=== PATIENT | female | born 2000 | race Caucasian/White ===

== ENCOUNTER 2019-01-24 14:49 | Emergency (ER) | payer MEDICAID, SELFPAY ==
[2019-01-24 14:53] VITALS: BP 119/71; PULSE 90; RESP 16; TEMP 36.4; O2SAT 99
--- NOTE | 2019-01-24 15:10 | DI.US_ITS ---
SYMPTOM/DIAGNOSIS: VAG BLEEDING, , R/O ECTOPIC VS MISCARRIAGE OB ULTRASOUND: 01/24 OB/pelvic ultrasound was performed utilizing first trimester protocol. There is an apparent intrauterine gestational sac with mean sac size suggesting gestational age of 5 weeks 2 days. No yolk sac, pole or cardiac activity is identified. The findings as described were nonspecific and may represent early viable vs nonviable intrauterine gestation. The ovaries are unremarkable in appearance except for a presumed 15 mm left corpus luteum cyst. CONCLUSION: Likely early intrauterine gestation, 5 week sac size, viability is uncertain. Ectopic not absolutely excluded but unlikely. Follow up with serial beta Hcg levels and repeat ultrasound if indicated. Many abnormalities cannot be diagnosed. A normal exam does not exclude a congenital anomaly. HISTORY: Bleeding Date of exam: 01/24/2019 LMP:October or November EDC by LMP: ? Previous study: None ?? wks Range: to EDC by prior us: - - Findings: - - Prior surgery/: None BIOMETRY: PELVIC MEASUREMENTS: CRL: mm wks Uterus: 8.1 x 4.2 x 5.0 cm Yolk sac: mm wks Gest sac: 4.8 mm 5 +2 wks Rt Ovary: 3.0 x 1.3 x 1.2 cm BPD: mm wks HC: mm wks Lt Ovary: 2.9 x 1.7 x 2.2 cm AC: mm wks FL: mm wks Comments: 1.5 x 1.4 x 1.5 cm ? corpus luteum cyst. Composite Age (US): wks EDC by US: Heart Rate: BPM Amniotic Fluid: Oligo Normal Polyhydramnios Movement noted: Yes No Comments:
--- NOTE | 2019-01-24 15:35 | ED.GENADUL_ITS ---
Discharge Plan Disposition Patient Disposition: HOME Condition: Stable Discharge Details Chief Complaint: COO Clinical Impression: Abnormal vaginal bleeding, Threatened miscarriage Primary Care Provider: Tatiana Levin ED Provider: Andrei Barclay Home Meds and New Rx's Prescriptions: No Action No Known Home Meds RF: 0 Discharge Instructions Instructions: Threatened Miscarriage (ED) Additional Instructions: Feel free to return to the emergency department for any new or significant worsening of symptoms, fever chills, vaginal hemorrhaging, or any other worrisome symptoms that you may have. Otherwise feel free to call [facility] and talk with on-call provider for any further questions and keep your appointment as scheduled for Mondays ultrasound. Stand Alone Forms: Work Release Referrals: [facility] [Provider Group] Discharge Data Discharge Date/Time-TO BE ENTERED AT DEPARTURE: 01/24/19 17:45 Medical Decision Making <Sixto Loaiza DO - Last Filed: 01/24/19 15:46> This is a pleasant 18-year-old female who presents today for evaluation of vaginal bleeding. She is a G1, P0 who recently had a positive test within the last week or so. Last period was at the end of October. She denies any history of previous or miscarriage, however she has a strong family history of miscarriage and ectopic pregnancies. She developed mild vaginal bleeding that started this afternoon while in the shower. No associated pain cramping or tenderness. Exam demonstrates a closed cervix, small amount of tissue noted in the vaginal vault, small amount of blood. No cervical motion tenderness, pelvic tenderness, or tenderness on bimanual exam. Bedside ultrasound shows what appears to be a potential yolk sac versus blighted ovum versus retained products of conception. We will get a formal ultrasound, test the patient's Rh status, evaluate for hemoglobin status, reassess. With no clinical or historical pain, I feel that likelihood of ectopic is notably low. Case will be signed out to my colleague pending ultrasound, and lab results. Please refer to their documentation for final disposition. <Andrei Barclay NP - Last Filed: 01/24/19 19:12> Your review of labs show Rh+ patient with no signs of urinary tract infection, and completely appropriate CBC. Beta quant is 1964. Review of ultrasound imaging shows findings consistent with intrauterine approximately 5 weeks 2 days. Reassessed patient and patient has had no new or worsening symptoms since being in the emergency department. Called and spoke with Jennie Bradley public relations analyst whom recommended that patient keep her appointment for Monday for repeat ultrasound. She did not recommend repeat hCG at this time but states that OB provider will order as needed based upon Mondays ultrasound. Thorough return precautions for vaginal bleeding were discussed with patient along with importance of follow-up with women's wellness. After discussion of diagnosis and plan of care patient has no further needs, questions, or concerns and states clear understanding to return to the emergency department for any worsening symptoms. HPI <Sixto Loaiza, DO - Last Filed: 01/24/19 15:46> General Date/Time Provider Initiated Documentation: 01/24/19 14:57 . HPI Narrative: This is a pleasant G1, P0 18-year-old female who presents today for vaginal bleeding. Patient has no significant past medical history, she states that at her PCPs office just a few days ago her test was performed and it was positive. She is scheduled for ultrasound dating on 01/28. Last menstrual period was in late October. Today when she was in the shower she noted a mild to moderate amount of vaginal bleeding. She had no associated pain, cramping, or discomfort. She does not recall seeing any clots or tissue. She presents to the ER for further assessment. She does have a past medical history positive for herpes, she denies any other history of STDs. She is obviously sexually active. She does have a strong family history of STDs, and ectopic pregnancies and miscarriages. Patient denies any other complaints at this time. She denies any recent trauma or vigorous sexual activity. Related Data Home Medications Medication Instructions Recorded Confirmed Unknown [No Known Home Meds] 01/24/19 01/24/19 Allergies Allergy/AdvReac Type Severity Reaction Status Date / Time lisdexamfetamine Allergy Intermediate difficulty Verified 01/24/19 14:56 [From Vyvanse] falling asleep bee venom protein (honey bee) Allergy Unknown Verified 01/24/19 14:56 kiwi Allergy Unknown Verified 01/24/19 14:56 Latex, Natural Rubber Allergy Unknown Verified 01/24/19 14:56 francisco Allergy Unknown Verified 01/24/19 14:56 pineapple Allergy Unknown Verified 01/24/19 14:56 General Stated Complaint: COO MIKI: 3 Review of Systems <Sixto Loaiza DO - Last Filed: 01/24/19 15:46> Review of Systems All systems reviewed & are unremarkable except as noted in HPI and below PFSH <Sixto Loaiza DO - Last Filed: 01/24/19 15:46> Medical History (Updated 01/24/19 @ 10:52 by Lupe Dougherty LPN) Anemia (Chronic) Chronic serous otitis media (Acute) Concussion (Acute) Contusion of hip (Acute) Depression (Chronic) Dysmenorrhea (Acute) Excessive and frequent menstruation (Acute) Family disruption (Acute) HX: contraception (Acute) Knee pain (Acute) Menometrorrhagia (Acute) Menstruation disorder (Acute) Migraine (Chronic) Mild persistent asthma (Acute) Otitis (Chronic) Patent ductus arteriosus (Acute) Premature of unknown weight (Acute) Respiratory depression (Acute) Sleep disorder (Acute) Social History Smoking/Tobacco Use Status: Never Alcohol Intake: never Substance use type: does not use Do you feel safe at home: Yes Do you feel safe in your relationship?: Yes Exam <Sixto Loaiza DO - Last Filed: 01/24/19 15:46> Narrative Exam Narrative: 1.Const: Well-nourished, Well-developed, appearing stated age 2.Eyes: PERRL, no conjunctival injection, and symmetrical lids. 3.ENT: Atraumatic external nose and ears. Moist MM. Neck: Symmetric, trachea midline, No thyromegaly. 4.CVS: +S1/S2, No murmurs or gallops. Peripheral pulses 2+ and equal in all extremities. Brisk capillary refill in all extremities. 5.RESP: Unlabored respiratory effort. Clear to auscultation bilaterally. No wheezes rales or rhonchi 6.GI: Soft, Nontender/Nondistended, No hepatosplenomegaly. No guarding or rebound. No abdominal or pelvic tenderness on palpation. Nurse Silva was present at bedside, vaginal exam was performed, cervix appears closed, small amount of blood, it is noted. There is also evidence of a small amount of tissue removed from the darrius-cervical area. The remainder of the exam is otherwise benign, no cervical motion tenderness, no pain on bimanual exam. 7.MSK: Normocephalic/Atraumatic, Extremities w/o deformity or ttp No cyanosis or clubbing, Normal movement of all extremities 8.Skin: Warm, Dry. No rashes or lesions. 9.Neuro: bearing ring assembler II-XII grossly intact. Sensation grossly intact, no focal neurologic deficits. 10.Psych: (AAO) x3. Appropriate mood and affect Course <Sixto Loaiza DO - Last Filed: 01/24/19 15:46> Vital Signs Temperature 36.4 C L 01/24/19 14:53 Pulse 90 01/24/19 14:53 Respiratory Rate 16 01/24/19 14:53 Blood Pressure 119/71 01/24/19 14:53 Pulse Oximetry 99 01/24/19 14:53 Temperature 36.4 C L 01/24/19 14:53 Temperature Source Temporal Artery Scan 01/24/19 14:53 Pulse 90 01/24/19 14:53 Respiratory Rate 16 01/24/19 14:53 Respiratory Effort Non-Labored 01/24/19 14:55 Blood Pressure 119/71 01/24/19 14:53 Blood Pressure Position Sitting 01/24/19 14:53 Pulse Oximetry 99 01/24/19 14:53 Oxygen Delivery Method Room Air 01/24/19 14:53 Oxygen Flow Rate 0 01/24/19 14:53 Pain Level 0 01/24/19 15:19 Sign Out <Sixto Loaiza DO - Last Filed: 01/24/19 15:46> Sign Out Data: Sign Out Comment: G1, P0 4 to 6 weeks potentially, vaginal bleeding last 3 hours, small amount of tissue noted in vaginal vault, getting ultrasound, hCG and Rh status. Last updated by Sixto Loaiza DO at 01/24/19 15:55
[2019-01-24 15:49] LABS: Abs Immature Grans 0.01 k/cumm (0.0-0.09); Absolute Basophil Count 0.04 k/cumm (0.0-0.2); Absolute Eosinophil Count 0.07 k/cumm (0.0-0.7); Absolute Lymphocyte Count 1.83 k/cumm (1.2-3.4); Absolute Monocyte Count 0.47 k/cumm (0.11-0.7); Absolute Neutrophil Count 5.37 k/cumm (1.2-6.7); Basophils % 0.5; Eosinophils % 0.9; HCT 39.1 % (36.0-46.0); HGB 13.2 g/dL (12.0-15.5); Immature Grans % 0.1; Lymphocytes % 23.5; Mean Corp. HGB Concentration 33.8 g/dL (32.0-36.0); Mean Corpuscular Hemoglobin 30.5 pg (27.0-33.0); Mean Corpuscular Volume 90.3 fL (80-95); Mean Platelet Volume 9.3 fL (8.0-11.0); Platelet Count 356 x1000/uL (130-400); RBC 4.33 m/cumm (4.00-5.20); RBC Distribution Width 12.2 % (11.7-14.6); White Blood Cell Count 7.79 k/cumm (4.4-10.8)
[2019-01-24 16:38] LABS: HCG Quant, Pregnancy 1963 mIU/mL (1-3)
--- NOTE | 2019-01-24 16:42 | DI.VRAD_ITS ---
EXAM: US , Limited and US , Transvaginal EXAM DATE/TIME: 01/24/2019 4:21 PM CLINICAL HISTORY: 18 years old, female; Lmp or gestational age (in weeks): Unknown lmp october or november; Other: Vaginal bleeding, ; R/O ectopic vs miscarriage TECHNIQUE: Imaging protocol: Real-time ultrasound of the maternal uterus with image documentation. Transvaginal imaging was used for better evaluation of the fetus and adnexa. Exam focused on the clinical indication. COMPARISON: No relevant prior studies available. FINDINGS: GESTATION: Gestation: A gestational sac is present. No pole is identified. No yolk sac is identified. BIOMETRY: Estimated gestational age: The estimated gestational age is 5 weeks, 2 days by mean sac diameter of 0.48. MATERNAL: Uterus: The uterus has a normal appearance. The uterus measures 8.1 cm x 4.2 cm x 5.0 cm. Right adnexa: The right ovary has a normal appearance, measuring 3.0 cm x 1.3 cm x 1.2 cm. No free intraperitoneal fluid or adnexal mass is identified. Left adnexa: The left ovary has a normal appearance measuring 2.9 cm x 1.7 cm x 2.2 cm. There is a hypoechoic nodule measuring 1.5 cm with posterior acoustic enhancement and a rim of increased color Doppler blood flow within the left ovary, likely representing a corpus luteum cyst. IMPRESSION: Findings consistent with early intrauterine with an estimated gestational age of 5 weeks, 2 days by mean sac diameter. Dictated and Authenticated by: Boston Espinoza MD. Ordering:JIMMY Henson MD
[2019-01-24 16:43] LABS: Bilirubin Negative (Negative); Blood Negative (Negative); Clarity Clear (Clear); Glucose Negative (Negative); Ketones Negative (Negative); Leukocyte Esterase Negative (Negative); Nitrite Negative (Negative); Urobilinogen 0.2 EU/dL (Up TO 0.2)
[2019-01-24 17:39] VITALS: BP 107/53; PULSE 82; RESP 16; TEMP 37.2; O2SAT 100
== END 2019-01-24 17:45 | disposition home or self-care (01) ==
PROVIDERS: Student in an Organized Health Care Education/Training Program; Emergency Provider Nurse Practitioner Family; PCP Registered Nurse
DX: O20.0 Threatened abortion (principal); Z3A.01 Less than 8 weeks gestation of pregnancy
CPT/HCPCS: 36415; 86900; 86901; 99284; 76817; 81003; 84702; 85025

== ENCOUNTER 2019-01-26 14:17 | Emergency (ER) | payer MEDICAID, SELFPAY ==
[2019-01-26 14:20] VITALS: BP 116/65; PULSE 74; RESP 16; TEMP 37.4; O2SAT 98
--- NOTE | 2019-01-26 14:24 | ED.GENADUL_ITS ---
Discharge Plan Disposition Patient Disposition: HOME Condition: Good Discharge Details Chief Complaint: COVER MAKER Clinical Impression: First trimester Primary Care Provider: Luzmaria Barney ED Provider: Kylah Perez Home Meds and New Rx's Prescriptions: Continued ferrous fumarate 324 mg (106 mg iron) Tablet 324 mg PO DAILY AM RF: 0 28-800 mg-mcg Tablet 1 tab PO DAILY AM RF: 0 calcium carbonate [Calcium 500] 500 mg calcium (1,250 mg) Tablet 1,250 mg PO DAILY PRN PRNRF: 0 Discharge Instructions Instructions: First Trimester (ED) Additional Instructions: Encourage hydration. Please continue with your vitamins. Your hCG is going up nicely. Please keep upcoming appointment with COVER MAKER. If you develop any new or worsening symptoms please return to the emergency department once again. Referrals: Angela Payne MD [ [facility] STAFF PHYSICIAN] - Medical Decision Making Patient is a 18-year-old female, G1, P0, presenting today for redraw of her beta hCG. She was seen here 2 days ago with threatened miscarriage. At that time, she was endorsing bleeding. She was noted to have an intrauterine . She denies any bleeding, vaginal discharge, abdominal pain. No nausea vomiting. Reports that she is feeling quite well. Repeat quantitative hCG is up to 3456, so from 1963. Discussed these findings with the patient. She Adama has a scheduled appointment with COVER MAKER on Monday. Encourage hydration. She will return with any new or worsening symptoms. All of her questions and concerns were addressed and she is in agreement this plan. HPI General Mode of arrival: ambulatory . Date/Time Provider Initiated Documentation: 01/26/19 14:24 . Limitations to Documentation: no limitations . Information obtained by: patient and RN notes reviewed . HPI Narrative: Patient presents today for repeat quantitative hCG. She was seen here 48 hours ago with concern for threatened spontaneous in the first trimester. Patient reports that her bleeding has stopped. She denies any cramping. No vaginal discharge. Reports overall she is feeling quite well. Was advised to return for repeat quantitative hCG. Related Data Home Medications Medication Instructions Recorded Confirmed 1 tab PO DAILY AM 01/26/19 01/26/19 calcium carbonate [Calcium 500] 1,250 mg PO DAILY PRN PRN 01/26/19 01/26/19 ferrous fumarate 324 mg PO DAILY AM 01/26/19 01/26/19 Allergies Allergy/AdvReac Type Severity Reaction Status Date / Time lisdexamfetamine Allergy Intermediate difficulty Verified 01/26/19 14:26 [From Magdalena] falling asleep bee venom protein (honey bee) Allergy Unknown Verified 01/26/19 14:26 kiwi Allergy Unknown Verified 01/26/19 14:26 Latex, Natural Rubber Allergy Unknown Verified 01/26/19 14:26 francisco Allergy Unknown Verified 01/26/19 14:26 pineapple Allergy Unknown Verified 01/26/19 14:26 General MIKI: 3 Review of Systems Constitutional Reports as per HPI, Denies chills, Denies fatigue, Denies fever(s) and Denies headache(s) ENT Denies headache(s) Cardiovascular Reports as per HPI, Denies chest pain and Denies dyspnea Respiratory Reports as per HPI, Denies cough and Denies dyspnea Gastrointestinal Reports as per HPI Musculoskeletal Reports as per HPI and Denies back pain Integumentary/Breasts Reports as per HPI and Denies rash Neurologic Reports as per HPI and Denies headache(s) Endocrine Denies fatigue [facility] Medical History Adjustment disorder with mixed emotional features (Acute) Anemia (Chronic) Attention deficit hyperactivity disorder (ADHD), combined type (Acute) Chronic serous otitis media (Acute) Concussion (Acute) Contusion of hip (Acute) Depression (Chronic) Dysmenorrhea (Acute) Excessive and frequent menstruation (Acute) Family disruption (Acute) HX: contraception (Acute) Knee pain (Acute) Menometrorrhagia (Acute) Menstruation disorder (Acute) Migraine (Chronic) Mild persistent asthma (Acute) Otitis (Chronic) Patent ductus arteriosus (Acute) Premature infant of unknown weight (Acute) Respiratory depression (Acute) Sleep disorder (Acute) Social History Smoking/Tobacco Use Status: Never Alcohol Intake: never Drug use: Never Substance use type: does not use Do you feel safe at home: Yes Do you feel safe in your relationship?: Yes Exam Const General: cooperative, healthy appearing, comfortable, no acute distress and well developed Nutritional Appearance: average body habitus and well nourished Orientation: alert and awake HENIA Head: normal to inspection Mouth: moist mucous membranes Resp Effort & Inspection: normal respiratory effort, able to speak in complete sentences and no respiratory distress Auscultation: clear to auscultation bilaterally, no rales, no rhonchi and no wheezes Cardio Rate: regular rate Rhythm: regular rhythm Heart Sounds: S1 normal and S2 normal GI Inspection: normal to inspection Palpation: soft, no hepatosplenomegaly and nontender Percussion: normal to percussion Auscultation: normal bowel sounds Back/Spine/Pelvis Back: no CVA tenderness Skin General skin exam: no rashes or lesions noted Trauma: no lacerations or abrasions Neuro General: alert and awake Cognition: normal cognition Speech: speech normal Gait: normal gait Psych Appearance: grossly normal and well kempt Mental Status: mental status grossly normal Speech and Movement: speech and movement normal
[2019-01-26 15:25] LABS: HCG Quant, Pregnancy 3456 mIU/mL (1-3)
== END 2019-01-26 15:57 | disposition home or self-care (01) ==
PROVIDERS: Emergency Provider Physician Assistant; PCP Pediatrics
DX: Z3A.00 Weeks of gestation of pregnancy not specified (principal)
CPT/HCPCS: 36415; 99282; 84702

== ENCOUNTER 2019-02-05 12:16 | Outpatient (CLI) | payer MEDICAID, SELFPAY ==
[2019-02-05 12:42] LABS: Abs Immature Grans 0.01 k/cumm (0.0-0.09); Absolute Basophil Count 0.03 k/cumm (0.0-0.2); Absolute Eosinophil Count 0.04 k/cumm (0.0-0.7); Absolute Lymphocyte Count 1.99 k/cumm (1.2-3.4); Absolute Monocyte Count 0.41 k/cumm (0.11-0.7); Absolute Neutrophil Count 4.12 k/cumm (1.2-6.7); Basophils % 0.5; Eosinophils % 0.6; HCT 35.9 % (36.0-46.0); HGB 12.3 g/dL (12.0-15.5); Immature Grans % 0.2; Lymphocytes % 30.2; Mean Corp. HGB Concentration 34.3 g/dL (32.0-36.0); Mean Corpuscular Hemoglobin 30.6 pg (27.0-33.0); Mean Corpuscular Volume 89.3 fL (80-95); Mean Platelet Volume 8.9 fL (8.0-11.0); Monocytes % 6.2; Neutrophils % 62.3; Platelet Count 333 x1000/uL (130-400); RBC 4.02 m/cumm (4.00-5.20); RBC Distribution Width 11.3 % (11.7-14.6)
[2019-02-05 16:49] LABS: HCG Quant, Pregnancy 23803 mIU/mL (1-3)
== END 2019-02-05 12:36 ==
PROVIDERS: PCP Pediatrics; Visit Provider Obstetrics & Gynecology
DX: O02.0 Blighted ovum and nonhydatidiform mole (principal)
CPT/HCPCS: 36415; 86850; 86900; 86901; 84702; 85025

== ENCOUNTER 2019-02-06 07:36 | Day surgery (SDC) | payer MEDICAID, SELFPAY ==
[2019-02-06 07:45] VITALS: BP 113/63; PULSE 82; RESP 16; TEMP 36.8; O2SAT 99
[2019-02-06] MEDS: Lactated Ringers 1,000 ML 125 ML IV (08:26)
--- NOTE | 2019-02-06 09:04 | POCSPONT_PTH ---
PATIENT: Carla Alas LOC: [facility] U#:[id number] AGE/SX: 18/F ROOM: RE02/06/[address]: Robel Thompson MD : 2000 BED: DIS: 02/06/2019 SPEC #: [id number] RECD: 02/06/19 12:30 STATUS: YAS REQ #: [id number] SEPIDEH: 02/06/19 09:[address]: Robel Thompson DEPT: Surgical Specimen RECD BY: Barbara Mccabe ENTERED: 02/06/19 12:30 SP TYPE: POCSPONT OT DR: Luzmaria Barney Tissues: 1 - ,SPONTANEOUS Procedures: GROSS AND MICRO LEVEL 4 Comments: [id number]
[2019-02-06] MEDS: Silver Nitrate Stick 1 EACH (09:07)
[2019-02-06 09:35] VITALS: BP 116/75; PULSE 88; RESP 20; TEMP 36.5; O2SAT 100
[2019-02-06 09:56] VITALS: BP 117/74; PULSE 69; RESP 18; TEMP 36.6; O2SAT 100
[2019-02-06 10:55] VITALS: BP 114/76; PULSE 78; RESP 17; TEMP 36.9; O2SAT 100
--- NOTE | 2019-02-06 19:35 | ROE_ITS ---
Date of service: 02/06/19 Time of Service: 19:35 Operative Note Operative Note DATE OF PROCEDURE: 02/06/19 PRE-OP DIAGNOSIS: Missed /anembryonic POST-OP DIAGNOSIS: same PROCEDURE: Suction D&C SURGEON: Robel Thompson ANESTHESIA: MAC ESTIMATED BLOOD LOSS: 100 PATHOLOGY: other (Products of conception) COMPLICATIONS: None Patient was transported to: PACU Patient's condition: stable Procedure Description: The patient was taken to the operating room and after an adequate level of sedation was achieved. The patient was prepped and draped in usual sterile manner. The patient had been placed in lithotomy position. A weighted speculum was placed in the vagina with good visualization of the cervix. The cervix was grasped with an Allis forcep. The cervix was gently dilated with Mccormack dilators. An 8 Martiniquais curved suction curette was advanced without difficulty. Suction apparatus was activated and the curette was rotated. Copious products of conception were retrieved. A sharp curettage was performed yielding no additional products. A second pass with the suction curette was made and again no additional products of conception were retrieved. The procedure was concluded at this point. All instrumentation was removed. The patient was transferred to PACU in stable condition.
== END 2019-02-06 11:05 | disposition home or self-care (01) ==
PROVIDERS: PCP Pediatrics; Visit Provider Obstetrics & Gynecology
PROC: (CPT 59841; principal; 2019-02-06 09:00)
DX: O02.1 Missed abortion (principal)
CPT/HCPCS: 59820; 88305; J1885; J2250; J2405

== ENCOUNTER 2019-02-16 17:31 | Emergency (ER) | payer MEDICAID, SELFPAY ==
[2019-02-16 17:33] VITALS: BP 147/76; PULSE 94; RESP 16; TEMP 37.2; O2SAT 97
[2019-02-16] MEDS: Acetaminophen 500 MG TAB 1000 MG PO (17:56)
[2019-02-16 17:58] LABS: Bilirubin Negative (Negative); Blood Small (Negative); Clarity Cloudy (Clear); Glucose Negative (Negative); Ketones Negative (Negative); Leukocyte Esterase Large (Negative); Nitrite Positive (Negative); Specific Gravity 1.015 (1.005-1.025); Urobilinogen 0.2 EU/dL (Up TO 0.2)
[2019-02-16 18:07] LABS: Epithelial Cells Moderate HPF (Negative); Other Cells Mod Transitional (Negative); WBC >50 HPF (0-5)
[2019-02-16 18:08] LABS: Bacteria Packed HPF (Negative)
[2019-02-16 18:09] LABS: C & S Indicated? C&S Done As Ordered
--- NOTE | 2019-02-16 18:10 | W.GYNCONSULT ---
Date of service: 02/16/19 Time of Service: 18:10 Assessment and Plan Assessment and plan (1) H/O dilation and curettage: Status: Acute Assessment and plan: Currently there is no evidence of postop endometritis on pelvic exam. Her symptoms relate more to flank and CVA tenderness. I have spoken to the patient and will have the ER providers follow-up regarding possible urinary tract infection. I will also refer report to Dr. Thompson patient's symptoms. (2) Acute left flank pain: Status: Acute Assessment and plan: I will await the UA and pending urine culture. The plan would be to administer antibiotics for a presumed UTI and have the patient [facility] to [facility]. History of Present Illness History of Present Illness Chief Complaint: Postop pelvic and flank pain Narrative: Patient is a 18-year-old female who awoke this morning with report of right sided abdominal and flank pain. She described the pain is worsening throughout the day and significant enough that she presented to the emergency room this evening. Patient underwent a uncomplicated cervical dilatation and uterine evacuation on 02/06/2019 for a missed at 11 weeks estimated gestational age. She was evaluated by Dr. Thompson her consumer affairs manager yesterday in the office. She had no issues at that time. Review of Systems Constitutional Constitutional: Reports as per HPI, Reports fever(s) (Denies) and Reports other (Nausea this morning no emesis no complaints of fever or chills) Gastrointestinal Gastrointestinal: Reports abdominal pain (Right greater than left side extending into her right flank) and Reports change in stool character (No change in bowel or bladder habits) Genitourinary Genitourinary: Reports abnormal menses (Dark brown-colored blood yesterday small amount none since) and Reports pelvic pain (Nonspecific pelvic pain) Comments: Patient reports no bleeding after her D&C. The amount of bleeding that she experienced yesterday was somewhat surprising in that she rarely has any heavy flow. Musculoskeletal Musculoskeletal: Reports back pain (Bilateral but right greater than left flank) Integumentary/Breasts Skin/Breast: Reports system reviewed and no additional complaints, except as docu ON LICENSE OF [facility] Medical History (Updated 02/16/19 @ 18:20 by Angela Payne MD) Acute left flank pain (Acute) Adjustment disorder with mixed emotional features (Acute) Anemia (Chronic) Attention deficit hyperactivity disorder (ADHD), combined type (Acute) Chronic serous otitis media (Acute) Concussion (Acute) Contusion of hip (Acute) Depression (Chronic) Dysmenorrhea (Acute) Excessive and frequent menstruation (Acute) Family disruption (Acute) HX: contraception (Acute) Knee pain (Acute) Menometrorrhagia (Acute) Menstruation disorder (Acute) Migraine (Chronic) Mild persistent asthma (Acute) Otitis (Chronic) Patent ductus arteriosus (Acute) Premature infant of unknown weight (Acute) Respiratory depression (Acute) Sleep disorder (Acute) Surgical History (Updated 02/16/19 @ 18:16 by Angela Payne MD) H/O dilation and curettage (Acute) 02/06/2019. Missed AB at 11 weeks. Social History Smoking/Tobacco Use Status: Former Tobacco Use Quit Date: 07/20/18 Tobacco: How many years used: 1 Quit status: quit date established Alcohol Intake: never Drug use: Never Substance use type: does not use Details: around second hand marijuana smoke Do you feel safe at home: Yes Do you feel safe in your relationship?: Yes Exam Const General: no acute distress Nutritional Appearance: average body habitus Orientation: alert, awake and oriented x3 Resp Effort & Inspection: normal respiratory effort GI Inspection: normal to inspection Palpation: soft and no hepatosplenomegaly General: bimanual renal exam abnormal (Tenderness left flank pain with percussion. Minimal pain percussion right ) and CVA tenderness (Left greater than right) External Female Exam: external appearance normal Bimanual Exam- Vagina & Uterus: normal bimanual exam, normal vaginal palpation, uterine consistency normal, uterus non-tender (Retroverted, not enlarged,) and other (Dark brown, non-malodorous vaginal discharge) Bimanual Exam- Adnexa, other: normal adnexae, adnexae mobile and no adnexal masses Skin General skin exam: no rashes or lesions noted Extrem General: normal to inspection, full ROM and normal capillary refill Results Last Vital Signs Temp 99 F 02/16/19 17:33 Pulse 94 H 02/16/19 17:33 Resp 16 02/16/19 17:33 BP 147/76 H 02/16/19 17:33 Pulse Ox 97 02/16/19 17:33 Labs Result diagrams: 02/16/19 17:41 02/16/19 17:41 Labs: Laboratory Results - last 24 hr 02/16/19 17:48 Urine Color Yellow Urine Clarity Cloudy Urine pH 7.0 Ur Specific [place] 1.015 Urine Protein 30 H Urine Ketones Negative Urine Blood Small H Urine Nitrite Positive H Urine Bilirubin Negative Urine Urobilinogen 0.2 Ur Leukocyte Esterase Large H Urine RBC 10-20 H Urine WBC >50 Ur Epithelial Cells Moderate Urine Crystals Not Applicable Urine Bacteria Packed Urine Mucus Not Applicable Urine Other Mod transitional Ur Culture Indicated? C&s done as ordered Urine Glucose Negative
[2019-02-16 18:16] LABS: Abs Immature Grans 0.02 k/cumm (0.0-0.09); Absolute Basophil Count 0.04 k/cumm (0.0-0.2); Absolute Eosinophil Count 0.16 k/cumm (0.0-0.7); Absolute Lymphocyte Count 2.47 k/cumm (1.2-3.4); Absolute Monocyte Count 0.66 k/cumm (0.11-0.7); Absolute Neutrophil Count 5.04 k/cumm (1.2-6.7); Basophils % 0.5; Eosinophils % 1.9; HCT 36.3 % (36.0-46.0); HGB 12.5 g/dL (12.0-15.5); Immature Grans % 0.2; Lymphocytes % 29.4; Mean Corp. HGB Concentration 34.4 g/dL (32.0-36.0); Mean Corpuscular Hemoglobin 30.6 pg (27.0-33.0); Mean Corpuscular Volume 88.8 fL (80-95); Mean Platelet Volume 8.8 fL (8.0-11.0); Monocytes % 7.9; Neutrophils % 60.1; Platelet Count 414 x1000/uL (130-400); RBC 4.09 m/cumm (4.00-5.20); RBC Distribution Width 11.2 % (11.7-14.6); White Blood Cell Count 8.39 k/cumm (4.4-10.8)
[2019-02-16 18:27] LABS: ALT 85 U/L (14-59); AST 47 U/L (15-37); Albumin 3.9 g/dL (3.4-5.0); Alkaline Phosphatase 89 U/L (46-116); Anion Gap 8.9 mmol/L (3-11); BUN 8 mg/dL (7-18); Bilirubin, Total 0.4 mg/dL (0.2-1.0); CO2 29.1 mmol/L (21.0-32.0); CREATININE 0.78 mg/dL (0.55-1.02); Calcium 8.8 mg/dL (8.5-10.1); Chloride 101 mmol/L (98-107); Glucose 96 mg/dL (70-100); Potassium 3.7 mmol/L (3.5-5.1); Sodium 139 mmol/L (136-145); Total Protein 7.9 g/dL (6.4-8.2)
[2019-02-16 18:29] LABS: HCG Qual (Serum) Positive
[2019-02-16 19:19] LABS: HCG Quant, Pregnancy 36 mIU/mL (1-3)
--- NOTE | 2019-02-16 19:49 | W.ED.GENAD ---
Discharge Plan Disposition Patient Disposition: HOME Condition: Good Discharge Details Chief Complaint: Urinary Clinical Impression: Acute pyelonephritis Primary Care Provider: Luzmaria Barney ED Provider: Maribel Guzman Home Meds and New Rx's Prescriptions: New cephalexin [Keflex] 500 mg capsule 500 mg PO QID Qty: 28 RF: 0 No Action ferrous fumarate 324 mg (106 mg iron) Tablet 324 mg PO DAILY AM RF: 0 Discharge Instructions Instructions: Urinary Tract Infection in Women (ED) Additional Instructions: Drink plenty of fluids by mouth Use antibiotic as prescribed. Use Pyridium as prescribed. This will stay in your urine a reddish-orange color. Follow-up with Dr. Thompson in the office this week. May use Tylenol for soreness if needed For any increase, worsening or alarming symptoms such as abdominal pain increasing, vaginal bleeding, fever worsening symptoms or lack of improvement as expected in the next 1 to 2 days have reevaluation in the emergency room. Return sooner if needed Discharge Data Discharge Date/Time-TO BE ENTERED AT DEPARTURE: 02/16/19 20:01 Medical Decision Making 18-year-old patient presents for complaints of back pain bilaterally, mild suprapubic pain, headache, subjective fever and malaise which worsened in the last 24 hours. Patient does report an episode of vaginal bleeding yesterday. Patient is 1 week status post D&C for spontaneous with retained products of conception with Dr. Thompson. Patient did have a follow-up with Dr. Thompson 2 days ago which was normal and did report lower abdominal cramping throughout the course of the week. On exam patient is noted to have CVA tenderness worse on the left. Mild suprapubic discomfort. Case was discussed with Dr. Payne covering [employer] doctor who evaluated patient in the emergency room and performed pelvic exam. Did not appreciate cervical motion tenderness or concerns for endometritis. Also notes CVA tenderness on the left. Urinalysis is remarkable for urinary tract infection and feels likely this is related to the urinary tract infection and developing pyelonephritis versus endometritis. Recommend antibiotic treatment and follow-up as an outpatient. Patient does have labs pending. She did recommend follow-up with Dr. Thompson in the office this week and she will make Dr. Thompson aware of the case. No significant abnormalities noted on patient's lab results. No elevation of white blood cell count. Serum hCG does remain positive however is trending down which is not unexpected. Patient taking fluids by mouth. Recommended Augmentin per Dr. Payne however patient has difficulty tolerating Augmentin has taken the medication before and reports significant GI upset would prefer not to use this medication. I offered IV Rocephin prior to discharge her more aggressive antibiotic coverage for possible Pyelo nephritis. Patient declines IV dose at this time would prefer an initial oral dose and follow-up if not improving. Offered Pyridium and patient agrees. Counseled regarding appropriate care and management as well as expectations for improvement in the next 2 days. Alarming symptoms discussed. The patient was stable and requested discharge. Prior to discharge, my usual and customary return precautions were reviewed with the patient - this included follow-up instructions and reasons to return to the Emergency Department if conditions worsens, does not improve as expected, or other new concerns arise. HPI General Date/Time Provider Initiated Documentation: 02/16/19 17:31. HPI Narrative: 18-year-old patient presents for complaints of back pain. Patient reports she is 1 week status post a D&C with Dr. Thompson 02/06. Patient reports onset of back pain increasing in the last 24 hours. Patient reports she did see Dr. Thompson for follow-up appointment and did not have significant back pain at that time. Patient reports accompanying suprapubic discomfort. Patient reports a single episode of vaginal bleeding which has since improved. Patient denies vaginal discharge. Patient denies obvious urinary urgency, frequency or dysuria. Patient does report headache, malaise and subjective fever developing today. Patient did report crampy abdominal pain since the D&C throughout the course of the week which is mildly increased today. Patient does report she had a D&C status post retained products after spontaneous . Related Data Home Medications Medication Instructions Recorded Confirmed ferrous fumarate 324 mg PO DAILY AM 01/26/19 02/06/19 cephalexin [Keflex] 500 mg PO QID #28 cap 02/16/19 Previous Rx's Medication Instructions Recorded cephalexin [Keflex] 500 mg PO QID #28 cap 02/16/19 Allergies Allergy/AdvReac Type Severity Reaction Status Date / Time lisdexamfetamine Allergy Intermediate difficulty Verified 02/15/19 11:26 [From Vyvanse] falling asleep bee venom protein (honey bee) Allergy Unknown Verified 02/15/19 11:26 kiwi Allergy Unknown Verified 02/15/19 11:26 Latex, Natural Rubber Allergy Unknown Verified 02/15/19 11:26 francisco Allergy Unknown Verified 02/15/19 11:26 pineapple Allergy Unknown Verified 02/15/19 11:26 General Stated Complaint: Urinary MIKI: 4 Review of Systems Review of Systems ROS Unobtainable: All systems reviewed & are unremarkable except as noted in HPI and below Constitutional Constitutional: Reports chills, Reports headache(s), Reports malaise and Denies night sweats ENT Ears, Nose, Mouth, and Throat: Reports headache(s) Cardiovascular Cardiovascular: Denies dyspnea on exertion Respiratory Respiratory: Denies cough and Denies dyspnea on exertion Gastrointestinal Gastrointestinal: Reports abdominal pain, Denies change in bowel habits, Denies constipation, Reports cramping, Denies diarrhea, Reports nausea and Denies vomiting Genitourinary Genitourinary: Reports abnormal vaginal bleeding, Denies hematuria and Denies urinary frequency Neurologic Neurologic: Reports headache(s) [facility] Medical History Acute left flank pain (Acute) Adjustment disorder with mixed emotional features (Acute) Anemia (Chronic) Attention deficit hyperactivity disorder (ADHD), combined type (Acute) Chronic serous otitis media (Acute) Concussion (Acute) Contusion of hip (Acute) Depression (Chronic) Dysmenorrhea (Acute) Excessive and frequent menstruation (Acute) Family disruption (Acute) HX: contraception (Acute) Knee pain (Acute) Menometrorrhagia (Acute) Menstruation disorder (Acute) Migraine (Chronic) Mild persistent asthma (Acute) Otitis (Chronic) Patent ductus arteriosus (Acute) Premature of unknown weight (Acute) Respiratory depression (Acute) Sleep disorder (Acute) Surgical History (Updated 02/16/19 @ 18:16 by Angela Payne MD) H/O dilation and curettage (Acute) 02/06/2019. Missed AB at 11 weeks. Social History Smoking/Tobacco Use Status: Former Tobacco Use Quit Date: 07/20/18 Tobacco: How many years used: 1 Quit status: quit date established Alcohol Intake: never Drug use: Never Substance use type: does not use Details: around second hand marijuana smoke Do you feel safe at home: Yes Do you feel safe in your relationship?: Yes Exam Narrative Exam Narrative: CONST: Healthy appearing patient, in no acute distress. Well hydrated. Alert and alert. HENMT: Head nomocephalic, normal to inspection. Atraumatic. Hearing grossly normal. EYES: General normal appearance. Alignment normal. Eyelids normal. Conjunctiva normal. NECK: Normal visual inspection. FROM. Trachea midline. No Midline tenderness. CHEST: Normal insepection of the chest. RESP: Normal respiratory effort. Speaking full sentences. No cough. No audible wheezing. No retractions. CARDIO: No JVD. Abdomen; no peritoneal signs, rebound or guarding. No abdominal distention. Bowel sounds present in all 4 quadrants. Minimal lower abdominal discomfort with palpation. Back; CVA tenderness noted on the right with palpation. Minimal on the left MUSCULOSKELETAL: Normal Gait. FROM of all extremities. SKIN: Normal. Dry. No rashes. NEURO: Alert and awake. Speech clear. PSYCH: Normal affect. Cooperative. Course Vital Signs Vital signs: Vital Signs Temperature 37.2 C 02/16/19 17:33 Pulse 94 H 02/16/19 17:33 Respiratory Rate 16 02/16/19 17:33 Blood Pressure 147/76 H 02/16/19 17:33 Pulse Oximetry 97 02/16/19 17:33 Temperature 37.2 C 02/16/19 17:33 Temperature Source Temporal Artery Scan 02/16/19 17:33 Pulse 94 H 02/16/19 17:33 Respiratory Rate 16 02/16/19 17:33 Respiratory Effort Non-Labored 02/16/19 17:36 Blood Pressure 147/76 H 02/16/19 17:33 Blood Pressure Position Sitting 02/16/19 17:33 Pulse Oximetry 97 02/16/19 17:33 Oxygen Delivery Method Room Air 02/16/19 17:33 Oxygen Flow Rate 0 02/16/19 17:33 Pain Level 7 02/16/19 17:56 Lab/Test Results Lab/Test Results: 02/16/19 17:40 Urine - Clean Catch Urine Culture - Pending Laboratory Tests Range/Units 02/16/19 02/16/19 02/16/19 17:48 18:05 18:05 WBC (4.4-10.8) k/cumm 8.39 RBC (4.00-5.20) m/cumm 4.09 Hgb (12.0-15.5) g/dL 12.5 Hct (36.0-46.0) % 36.3 MCV (80-95) fL 88.8 MCH (27.0-33.0) pg 30.6 MCHC (32.0-36.0) g/dL 34.4 RDW (11.7-14.6) % 11.2 L Plt Count (130-400) x1000/uL 414 H MPV (8.0-11.0) fL 8.8 Immature Gran % 0.2 Neutrophils % 60.1 Lymphocytes % 29.4 Monocytes % 7.9 Eosinophils % 1.9 Basophils % 0.5 Absolute Neutrophils (1.2-6.7) k/cumm 5.04 Absolute Lymphocytes (1.2-3.4) k/cumm 2.47 Absolute Monocytes (0.11-0.7) k/cumm 0.66 Absolute Eosinophils (0.0-0.7) k/cumm 0.16 Absolute Basophils (0.0-0.2) k/cumm 0.04 Sodium (136-145) mmol/L 139 Potassium (3.5-5.1) mmol/L 3.7 Chloride (98-107) mmol/L 101 Carbon Dioxide (21.0-32.0) mmol/L 29.1 Anion Gap (3-11) mmol/L 8.9 BUN (7-18) mg/dL 8 Creatinine (0.55-1.02) mg/dL 0.78 Estimated GFR/1.73 m2 (mL/min/1.73m2) >= 60.00 Glucose (70-100) mg/dL 96 Calcium (8.5-10.1) mg/dL 8.8 Total Bilirubin (0.2-1.0) mg/dL 0.4 AST (15-37) U/L 47 H ALT (14-59) U/L 85 H Alkaline Phosphatase (46-116) U/L 89 Total Protein (6.4-8.2) g/dL 7.9 Albumin (3.4-5.0) g/dL 3.9 Serum HCG, Qual Beta HCG, Quant (1-3) mIU/mL Urine Color (Yellow) Yellow Urine Clarity (Clear) Cloudy Urine pH (5-8) 7.0 Ur Specific [place] (1.005-1.025) 1.015 Urine Protein (Negative) mg/dL 30 H Urine Ketones (Negative) mg/dL Negative Urine Blood (Negative) Small H Urine Nitrite (Negative) Positive H Urine Bilirubin (Negative) Negative Urine Urobilinogen (Up TO 0.2) EU/dL 0.2 Ur Leukocyte Esterase (Negative) Large H Urine RBC (0-2) 10-20 H Urine WBC (0-5) HPF >50 Ur Epithelial Cells (Negative) HPF Moderate Urine Crystals Not Applicable Urine Bacteria (Negative) HPF Packed Urine Mucus Not Applicable Urine Other (Negative) Mod transitional Ur Culture Indicated? C&s done as ordered Urine Glucose (Negative) mg/dL Negative Range/Units 02/16/19 02/16/19 18:05 18:05 WBC (4.4-10.8) k/cumm RBC (4.00-5.20) m/cumm Hgb (12.0-15.5) g/dL Hct (36.0-46.0) % MCV (80-95) fL MCH (27.0-33.0) pg MCHC (32.0-36.0) g/dL RDW (11.7-14.6) % Plt Count (130-400) x1000/uL MPV (8.0-11.0) fL Immature Gran % Neutrophils % Lymphocytes % Monocytes % Eosinophils % Basophils % Absolute Neutrophils (1.2-6.7) k/cumm Absolute Lymphocytes (1.2-3.4) k/cumm Absolute Monocytes (0.11-0.7) k/cumm Absolute Eosinophils (0.0-0.7) k/cumm Absolute Basophils (0.0-0.2) k/cumm Sodium (136-145) mmol/L Potassium (3.5-5.1) mmol/L Chloride (98-107) mmol/L Carbon Dioxide (21.0-32.0) mmol/L Anion Gap (3-11) mmol/L BUN (7-18) mg/dL Creatinine (0.55-1.02) mg/dL Estimated GFR/1.73 m2 (mL/min/1.73m2) Glucose (70-100) mg/dL Calcium (8.5-10.1) mg/dL Total Bilirubin (0.2-1.0) mg/dL AST (15-37) U/L ALT (14-59) U/L Alkaline Phosphatase (46-116) U/L Total Protein (6.4-8.2) g/dL Albumin (3.4-5.0) g/dL Serum HCG, Qual Positive A Beta HCG, Quant (1-3) mIU/mL 36 H Urine Color (Yellow) Urine Clarity (Clear) Urine pH (5-8) Ur Specific [place] (1.005-1.025) Urine Protein (Negative) mg/dL Urine Ketones (Negative) mg/dL Urine Blood (Negative) Urine Nitrite (Negative) Urine Bilirubin (Negative) Urine Urobilinogen (Up TO 0.2) EU/dL Ur Leukocyte Esterase (Negative) Urine RBC (0-2) Urine WBC (0-5) HPF Ur Epithelial Cells (Negative) HPF Urine Crystals Urine Bacteria (Negative) HPF Urine Mucus Urine Other (Negative) Ur Culture Indicated? Urine Glucose (Negative) mg/dL
[2019-02-16] MEDS: Phenazopyridine 200 MG TAB PO (19:57)
[2019-02-16] MEDS: Cephalexin 500 MG CAP PO (19:57)
[2019-02-16 20:06] VITALS: BP 128/70; PULSE 82; RESP 18; O2SAT 97
== END 2019-02-16 20:01 | disposition home or self-care (01) ==
PROVIDERS: Emergency Provider Physician Assistant; PCP Pediatrics
DX: N10 Acute pyelonephritis (principal); B96.20 Unspecified Escherichia coli [E. coli] as the cause of diseases classified elsewhere
CPT/HCPCS: 36415; 80053; 87077; 99283; 81003; 81015; 84702; 84703; 85025; 87086; 87186

== ENCOUNTER 2019-05-26 13:23 | Emergency (ER) | payer SELFPAY ==
[2019-05-26 13:34] VITALS: BP 116/63; PULSE 90; RESP 18; TEMP 36.8; O2SAT 99
[2019-05-26 14:12] LABS: Bilirubin Negative (Negative); Blood Negative (Negative); Clarity Sl Cloudy (Clear); Glucose Negative (Negative); Ketones Negative (Negative); Leukocyte Esterase Negative (Negative); Nitrite Positive (Negative); Specific Gravity 1.025 (1.005-1.025); Urobilinogen 0.2 EU/dL (Up TO 0.2)
[2019-05-26 14:20] LABS: Epithelial Cells Many HPF (Negative)
[2019-05-26 14:21] LABS: Bacteria Many HPF (Negative); C & S Indicated? No/Sq. Contamination
--- NOTE | 2019-05-26 14:48 | W.ED.GENAD ---
Discharge Plan Disposition Patient Disposition: HOME Condition: Stable Discharge Details Chief Complaint: GenMedical Clinical Impression: Nausea and vomiting in prior to 22 weeks gestation, Asymptomatic bacteriuria during Primary Care Provider: Luzmaria Barney ED Provider: Letty Tineo Home Meds and New Rx's Prescriptions: New nitrofurantoin monohyd/m-cryst [Macrobid] 100 mg capsule 100 mg PO BID 5 Days Qty: 10 RF: 0 ondansetron HCl [Zofran] 4 mg tablet 4 mg PO Q6H PRN (Reason: nausea and vomiting) Qty: 10 RF: 0 Continued ferrous fumarate 324 mg (106 mg iron) Tablet 324 mg PO DAILY AM RF: 0 Discharge Instructions Instructions: Nausea and Vomiting in (ED), Urinary Tract Infection in (ED) Additional Instructions: You were noted to have bacteria in your urine. It is important to treat a urinary tract infection in even without symptoms as it can lead to a kidney infection. Take the Zofran as needed and directed for nausea and vomiting. Follow-up with your scheduled appointment with women's wellness this week. Return to the emergency department if you develop any worsening or new concerning symptoms. Discharge Data Discharge Date/Time-TO BE ENTERED AT DEPARTURE: 05/26/19 15:12 Discharge Physician: Letty Tineo Medical Decision Making 18-year-old female who is 11 weeks presents for an episode of feeling sweaty, dizzy, blurry vision, nausea and vomiting x1 this morning. Patient states she has had morning sickness all throughout this but states this episode felt more pronounced this morning. She states symptoms are now completely resolved. She denied any headache, unilateral numbness or weakness, chest pain, shortness of breath, abdominal pain, vaginal bleeding. Vitals within normal limits. She appears nontoxic. No acute findings on exam. Urinalysis noted positive nitrites. Case discussed with Dr. Payne who recommended treatment for UTI. Patient was given a dose of Zofran and her nausea improved. As symptoms completely resolved and patient appears nontoxic, suspect symptoms likely due to systemic effects/process of nausea and vomiting that is now resolved. Do not see indication for lab work or imaging. We will send home with a prescription for Zofran and Macrobid. She has a follow-up appointment with women's wellness on Monday. Usual and customary return precautions given prior to discharge. Medical Records Medical records reviewed: Yes I reviewed the patient's medical records. Lab Data Lab results reviewed: Yes I reviewed the patient's lab results. Labs: Laboratory Tests Range/Units 05/26/19 14:07 Urine Color (Yellow) Yellow Urine Clarity (Clear) Sl cloudy Urine pH (5-8) 7.0 Ur Specific [place] (1.005-1.025) 1.025 Urine Protein (Negative) mg/dL Negative Urine Ketones (Negative) mg/dL Negative Urine Blood (Negative) Negative Urine Nitrite (Negative) Positive H Urine Bilirubin (Negative) Negative Urine Urobilinogen (Up TO 0.2) EU/dL 0.2 Ur Leukocyte Esterase (Negative) Negative Urine RBC Not Applicable Urine WBC Not Applicable Ur Epithelial Cells (Negative) HPF Many Urine Crystals Not Applicable Urine Bacteria (Negative) HPF Many Urine Mucus Not Applicable Ur Culture Indicated? No/sq. contamination Urine Glucose (Negative) mg/dL Negative HPI General Mode of arrival: ambulatory. Date/Time Provider Initiated Documentation: 05/26/19 14:01. Limitations to Documentation: no limitations. Information obtained by: patient. History of Present Illness 18 year old F presents to the emergency department with the chief complaint of Episode of dizziness, blurry vision and vomiting x1, Patient started experiencing this hour(s) (This morning) and it has been now resolved. Rest improves symptom(s), No exacerbating factors reported . Patient notes nausea/vomiting (vomiting x 1 ); denies confusion, chest pain, cough, diaphoresis, fever/chills, headaches, loss of appetite, malaise, seizure, shortness of breath, syncope and weakness. Patient did receive the following treatments prior to arrival, none Related Data Home Medications Medication Instructions Recorded Confirmed ferrous fumarate 324 mg PO DAILY AM 01/26/19 05/02/19 nitrofurantoin monohyd/m-cryst 100 mg PO BID 5 Days #10 cap 05/26/19 [Macrobid] ondansetron HCl [Zofran] 4 mg PO Q6H PRN #10 tab 05/26/19 Previous Rx's Medication Instructions Recorded nitrofurantoin monohyd/m-cryst 100 mg PO BID 5 Days #10 cap 05/26/19 [Macrobid] ondansetron HCl [Zofran] 4 mg PO Q6H PRN #10 tab 05/26/19 Allergies Allergy/AdvReac Type Severity Reaction Status Date / Time lisdexamfetamine Allergy Intermediate difficulty Verified 05/02/19 14:01 [From Vyvanse] falling asleep bee venom protein (honey bee) Allergy Unknown Verified 05/02/19 14:01 kiwi Allergy Unknown Verified 05/02/19 14:01 Latex, Natural Rubber Allergy Unknown Verified 05/02/19 14:01 francisco Allergy Unknown Verified 05/02/19 14:01 pineapple Allergy Unknown Verified 05/02/19 14:01 General Stated Complaint: GenMedical MIKI: 3 Review of Systems All systems reviewed & are unremarkable except as noted in HPI and below Constitutional Constitutional: Reports as per HPI, Denies chills and Denies fever(s) Eyes Eyes: Denies blurry vision ENT Ears, Nose, Mouth, and Throat: Reports dizziness, Denies sore throat and Denies throat swelling Cardiovascular Cardiovascular: Denies chest pain and Denies dyspnea Respiratory Respiratory: Denies cough and Denies dyspnea Gastrointestinal Gastrointestinal: Denies abdominal pain, Denies diarrhea and Denies vomiting Genitourinary Genitourinary: Denies hematuria and Denies dysuria Musculoskeletal Musculoskeletal: Denies back pain and Denies numbness Integumentary/Breasts Skin/Breast: Denies lesions and Denies rash Neurologic Neurologic: Reports dizziness, Denies focal weakness and Denies numbness Allergic/Immunologic Allergic/Immunologic: Denies throat swelling [facility] Medical History Acute left flank pain (Acute) Adjustment disorder with mixed emotional features (Acute) Anemia (Chronic) Attention deficit hyperactivity disorder (ADHD), combined type (Acute) Chronic serous otitis media (Acute) Concussion (Acute) Contusion of hip (Acute) Depression (Chronic) Dysmenorrhea (Acute) Excessive and frequent menstruation (Acute) Family disruption (Acute) HX: contraception (Acute) Knee pain (Acute) Menometrorrhagia (Acute) Menstruation disorder (Acute) Migraine (Chronic) Mild persistent asthma (Acute) Otitis (Chronic) Patent ductus arteriosus (Acute) Premature infant of unknown weight (Acute) Respiratory depression (Acute) Sleep disorder (Acute) Surgical History H/O dilation and curettage (Acute) 02/06/2019. Missed AB at 11 weeks. Social History Smoking/Tobacco Use Status: Former Tobacco Use Quit Date: 07/20/18 Tobacco: How many years used: 1 Quit status: quit date established Alcohol Intake: never Drug use: Never Substance use type: does not use Details: around second hand marijuana smoke Do you feel safe at home: Yes Do you feel safe in your relationship?: Yes History History 2 Para 0 Hx # Term Pregnancies 0 Multiple births 0 Hx # Pregnancies 0 Ectopic pregnancies 0 AB induced 0 Hx Number of Living Children 0 AB spontaneous 1 Exam Const General: cooperative, healthy appearing and no acute distress HENMT Head: normal to inspection Face and sinus: normal facial exam Eyes General: appearance normal, both eyes and all related structures EOM: EOM intact bilaterally Neck Neck: normal visual inspection and No submandibular swelling Lymphatic: no lymphadenopathy noted Chest Chest: normal inspection of the chest and no tenderness Resp Effort & Inspection: normal respiratory effort and able to speak in complete sentences Auscultation: clear to auscultation bilaterally Cardio Rate: regular rate Rhythm: regular rhythm GI Inspection: normal to inspection Palpation: soft, not firm, not rigid and nontender Auscultation: normal bowel sounds Skin General skin exam: no rashes or lesions noted Neuro General: alert, awake and oriented x3 Cognition: normal cognition Speech: speech normal Motor: muscle tone normal throughout Sensory Exam: no sensory deficits noted Extrem General: normal to inspection, full ROM, normal capillary refill, no calf tenderness bilaterally and no edema Psych Appearance: grossly normal Mental Status: mental status grossly normal Speech and Movement: speech and movement normal Affect: normal affect Course Vital Signs Vital signs: Vital Signs Temperature 98.2 F 05/26/19 13:34 Pulse 90 05/26/19 13:34 Respiratory Rate 18 05/26/19 13:34 Blood Pressure 116/63 05/26/19 13:34 Pulse Oximetry 99 05/26/19 13:34 Temperature 98.2 F 05/26/19 13:34 Temperature Source Skin 05/26/19 13:34 Pulse 90 05/26/19 13:34 Respiratory Rate 18 05/26/19 13:34 Respiratory Effort Non-Labored 05/26/19 13:38 Blood Pressure 116/63 05/26/19 13:34 Blood Pressure Position Sitting 05/26/19 13:34 Pulse Oximetry 99 05/26/19 13:34 Oxygen Delivery Method Room Air 05/26/19 13:34 Oxygen Flow Rate 0 05/26/19 13:34 Lab/Test Results Lab/Test Results: Laboratory Tests Range/Units 05/26/19 14:07 Urine Color (Yellow) Yellow Urine Clarity (Clear) Sl cloudy Urine pH (5-8) 7.0 Ur Specific [place] (1.005-1.025) 1.025 Urine Protein (Negative) mg/dL Negative Urine Ketones (Negative) mg/dL Negative Urine Blood (Negative) Negative Urine Nitrite (Negative) Positive H Urine Bilirubin (Negative) Negative Urine Urobilinogen (Up TO 0.2) EU/dL 0.2 Ur Leukocyte Esterase (Negative) Negative Urine RBC Not Applicable Urine WBC Not Applicable Ur Epithelial Cells (Negative) HPF Many Urine Crystals Not Applicable Urine Bacteria (Negative) HPF Many Urine Mucus Not Applicable Ur Culture Indicated? No/sq. contamination Urine Glucose (Negative) mg/dL Negative POC- Test(urine) Positive
[2019-05-26 15:07] VITALS: RESP 16
== END 2019-05-26 15:12 | disposition home or self-care (01) ==
PROVIDERS: Emergency Provider Physician Assistant; PCP Pediatrics
DX: O21.9 Vomiting of pregnancy, unspecified (principal); O23.41 Unspecified infection of urinary tract in pregnancy, first trimester; R42 Dizziness and giddiness; Z3A.11 11 weeks gestation of pregnancy
CPT/HCPCS: 81025; 99283; 81003; 81015

== ENCOUNTER 2019-05-29 10:04 | Outpatient (REF) | payer SELFPAY ==
[2019-05-29 11:27] LABS: *AMPHETAMINES SCREEN URINE Negative (Negative); *BARBITURATES SCREEN URINE Negative (Negative); *BENZODIAZEPINES SCREEN URINE Negative (Negative); Cannabinoids THC Negative (Negative); Cocaine Screen,Urine Negative (Negative); METHADONE URINE SCREEN Negative (Negative); OPIATES URINE SCREEN Negative (Negative)
[2019-05-29 11:36] LABS: Tricyclic Antidepressants Negative (Negative)
[2019-05-30 14:15] LABS: Chlamydia Result Negative (Negative); GC Result Negative (Negative)
[2019-06-03 18:39] LABS: Buprenorphine Negative; Norbuprenorphine Negative
== END 2019-05-29 10:24 ==
LOC: LBN 10:04
PROVIDERS: PCP Pediatrics; Visit Provider Advanced Practice Midwife
DX: Z34.91 Encounter for supervision of normal pregnancy, unspecified, first trimester (principal); Z11.3 Encounter for screening for infections with a predominantly sexual mode of transmission; F11.20 Opioid dependence, uncomplicated
CPT/HCPCS: 80307; 87491; 87591; 87086

== ENCOUNTER 2019-05-29 11:23 | Outpatient (CLI) | payer SELFPAY ==
[2019-05-29 12:07] LABS: Abs Immature Grans 0.02 k/cumm (0.0-0.09); Absolute Basophil Count 0.02 k/cumm (0.0-0.2); Absolute Eosinophil Count 0.03 k/cumm (0.0-0.7); Absolute Lymphocyte Count 1.98 k/cumm (1.2-3.4); Absolute Monocyte Count 0.36 k/cumm (0.11-0.7); Absolute Neutrophil Count 4.64 k/cumm (1.2-6.7); Basophils % 0.3; Eosinophils % 0.4; HCT 35.5 % (36.0-46.0); Immature Grans % 0.3 %; Lymphocytes % 28.1; Mean Corp. HGB Concentration 33.8 g/dL (32.0-36.0); Mean Corpuscular Hemoglobin 30.1 pg (27.0-33.0); Mean Platelet Volume 9.5 fL (8.0-11.0); Monocytes % 5.1; Neutrophils % 65.8; Platelet Count 335 x1000/uL (130-400); RBC 3.99 m/cumm (4.00-5.20); RBC Distribution Width 11.8 % (11.7-14.6); White Blood Cell Count 7.05 k/cumm (4.4-10.8)
[2019-05-30 10:28] LABS: Hepatitis B Surface Ag Negative (Negative)
[2019-05-30 10:48] LABS: Rubella IgG Ab (UVM) Positive (See Note); Varicella IgG Antibody Positive (See Note)
[2019-05-30 11:17] LABS: HIV-1/2 Ag & Ab Screen Negative (Negative); Hepatitis C Ab w Rflx HCV PCR Negative (Negative)
[2019-05-31 10:32] LABS: Syphilis Total Ab w/Reflex Nonreactive (Nonreactive)
== END 2019-05-29 11:43 ==
PROVIDERS: Advanced Practice Midwife; PCP Pediatrics; Visit Provider Advanced Practice Midwife
DX: Z34.91 Encounter for supervision of normal pregnancy, unspecified, first trimester (principal); Z11.59 Encounter for screening for other viral diseases; Z11.4 Encounter for screening for human immunodeficiency virus [HIV]; Z01.84 Encounter for antibody response examination
CPT/HCPCS: 36415; 86787; 86803; 86850; 86900; 86901; 87340; 87389; 85025; 86762; 86780

== ENCOUNTER 2019-06-26 11:30 | Outpatient (CLI) | payer SELFPAY ==
[2019-06-27 14:56] LABS: AFP 25.8 ng/mL; Calculated age at EDD 20 years; Cigarette smoking status non-Smoker; GA used in risk estimate Scan estimate; INHIBIN 127 pg/mL; IVF Pregnancy No; Initial or repeat testing Initial testing; Insulin dependent diabetes No; Maternal Weight 126 lbs; Number of Fetuses 1; Physician Phone Number 802-748-7300; Prev Down(T21)/Trisomy Pregnan No; Prev Pregnancy w/NTD No; RECOMMENDED FOLLOW UP None.; Results Summary Normal risk; hCG, TOTAL 16.6 IU/mL; hCG, TOTAL MoM 0.46 MoM; uE3 1.04 ng/mL; uE3 MoM 1.19 MoM
== END 2019-06-26 11:50 ==
PROVIDERS: PCP Pediatrics; Visit Provider Advanced Practice Midwife
DX: Z34.91 Encounter for supervision of normal pregnancy, unspecified, first trimester (principal); Z36.89 Encounter for other specified antenatal screening
CPT/HCPCS: 36415; 81511

== ENCOUNTER 2019-06-26 13:08 | Outpatient (REF) | payer SELFPAY | END 2019-06-26 13:28 | LOC: LBN 13:08 | PROVIDERS: PCP Pediatrics; Visit Provider Advanced Practice Midwife | DX: Z87.440 Personal history of urinary (tract) infections (principal) | CPT/HCPCS: 87086 ==

== ENCOUNTER 2019-07-10 02:22 | Outpatient (CLI) | payer SELFPAY ==
--- NOTE | 2019-07-10 10:01 | DI.US_ITS ---
EXAM: US OB 2-3 TRIMESTER W MOD CLINICAL HISTORY: 18 WK ANATOMY SURVEY, Z34.90. TECHNIQUE: Transabdominal obstetrical ultrasound performed. COMPARISON: US OB transvaginal from 01/24/2019 FINDINGS: There is a single living intrauterine gestation. The estimated sonographic age is 18 weeks. Placenta is anterior and low lying. No definite previa is noted. heart rate is 173 beats per minute. The four-chamber heart, bladder, kidneys and spine were no t completely imaged due to the lie of the fetus. The patient is scheduled to return on 07/17/2019 to complete the survey. There is a 1.6 x 1.7 x 1.6 cm cyst on the left ovary. There is a somewhat heterogeneous appearance of the choroids. This should be further evaluated when the patient returns on 07/17/2019. IMPRESSION: 1. Single live intrauterine gestation as above. 2. The patient will return on 07/17/2019 to complete the survey.
== END 2019-07-10 02:42 ==
PROVIDERS: PCP Pediatrics; Visit Provider Advanced Practice Midwife
DX: Z34.92 Encounter for supervision of normal pregnancy, unspecified, second trimester (principal); Z3A.18 18 weeks gestation of pregnancy; N83.292 Other ovarian cyst, left side
CPT/HCPCS: 76805

== ENCOUNTER 2019-07-17 01:20 | Outpatient (CLI) | payer SELFPAY ==
--- NOTE | 2019-07-17 11:00 | DI.US_ITS ---
EXAM: US OB F/U FACIAL/LVOT/RVOT CLINICAL HISTORY: F/U SPINE, 4 CHAMBER HEART AND KIDNEYS TECHNIQUE: Ultrasound performed using standard protocol. COMPARISON: US OB 2-3 TRIMESTER W MOD from 07/10/2019 FINDINGS: Patient returned today for further imaging. The spine, bladder, kidneys and heart were reason ably well visualized on today's examination. No abnormality is identified. The placenta is again no be to be anterior and low lying. The tip of the placenta measures 1.7 cm from the os. IMPRESSION: Anterior low-lying placenta. No abnormality is seen. DATA REPOSITORY:
== END 2019-07-17 01:40 ==
PROVIDERS: PCP Pediatrics; Visit Provider Advanced Practice Midwife
DX: O44.42 Low lying placenta NOS or without hemorrhage, second trimester (principal); Z36.2 Encounter for other antenatal screening follow-up
CPT/HCPCS: 76815

== ENCOUNTER 2019-08-27 16:20 | Observation (INO) | payer MEDICAID, SELFPAY ==
[2019-08-27] MEDS: Butalbital/Acetaminophen/Caffeine 50/325/40 TAB PO (17:21)
[2019-08-27] MEDS: Lactated Ringers 1,000 ML 500 ML IV (17:28)
[2019-08-27] MEDS: Normal Saline Flush 10 ML SYR IVP (18:04)
[2019-08-27] MEDS: Metoclopramide 10 MG/2 ML VIAL IVP (18:50)
== END 2019-08-27 20:25 | disposition home or self-care (01) ==
PROVIDERS: Admitting Provider Advanced Practice Midwife; PCP Pediatrics; Visit Provider Advanced Practice Midwife
DX: O60.02 Preterm labor without delivery, second trimester (principal); O99.352 Diseases of the nervous system complicating pregnancy, second trimester; G43.909 Migraine, unspecified, not intractable, without status migrainosus; Z3A.24 24 weeks gestation of pregnancy
CPT/HCPCS: 96360; 96361; G0378; J2765

== ENCOUNTER 2019-09-22 17:08 | Observation (INO) | payer MEDICAID, SELFPAY ==
[2019-09-22 17:13] VITALS: BP 114/63; PULSE 88; RESP 18; TEMP 37.2; O2SAT 97
--- NOTE | 2019-09-22 17:41 | W.ED.GENAD ---
Discharge Plan Disposition Patient Disposition: OTHER Condition: Stable Discharge Details Chief Complaint: Trauma Clinical Impression: Currently , Fall Admit Date/Time: 09/22/19 17:39 Admit Provider: Angela Payne Attending Provider: Angela Payne Primary Care Provider: Luzmaria Barney ED Provider: Rebel Baird Medical Decision Making Pleasant 19-year-old female presenting to the ER after falling down approximately 6-8 stairs, she is 28-1/2 weeks . She denies any injury from the fall. Other than the mild ecchymosis behind the knee, which very well may be a few days old, examination is unremarkable. She appears well, nontoxic and is no acute distress. heart tones in the 140s. I see no need for further emergent work-up here in the ER and a call was placed to Dr. Payne SITE OPERATIONS MANAGER. After speaking with Dr. Payne they will observe her in the birthing center. Patient made aware of this plan, she has no additional questions or concerns. Medical Records Medical records reviewed: Yes I reviewed the patient's medical records. HPI General Mode of arrival: ambulatory. Date/Time Provider Initiated Documentation: 09/22/19 17:16. Limitations to Documentation: no limitations. Information obtained by: patient. HPI Narrative: This is a pleasant 19-year-old female who is G2, P1, approximately 28-1/2 weeks. She reports that she is followed by a lan/wan engineer Jennie, and is scheduled to be seen again on Monday. She reports about 35 minutes prior to arrival, she slipped over a shoe, causing her to fall down approximately 6-8 stairs. She denies any injury from the fall however after discussing the situation with her mother decided to come to the ER for further evaluation. She denies striking her head, LOC, headache, neck pain, chest pain, pain in her extremities, abdominal pain, nausea, vomiting, back pain, vaginal bleeding or discharge. She does report that her first was approximately 1 year ago and ended in a miscarriage at 5 weeks Related Data Home Medications Medication Instructions Recorded Confirmed ferrous fumarate 324 mg PO DAILY AM 01/26/19 08/27/19 aspirin 81 mg tablet,delayed 81 mg PO DAILY #90 tab 06/26/19 08/27/19 release prenat.vits,reynold,xyk-clpp-yaidv 1 tab PO DAILY 06/26/19 08/27/19 metoclopramide HCl 10 mg tablet 10 mg PO Q6H PRN #90 tab 08/27/19 omeprazole magnesium 20 mg 20 mg PO DAILY #30 cap 08/27/19 capsule,delayed release Previous Rx's Medication Instructions Recorded aspirin 81 mg tablet,delayed 81 mg PO DAILY #90 tab 06/26/19 release metoclopramide HCl 10 mg tablet 10 mg PO Q6H PRN #90 tab 08/27/19 omeprazole magnesium 20 mg 20 mg PO DAILY #30 cap 08/27/19 capsule,delayed release Allergies Allergy/AdvReac Type Severity Reaction Status Date / Time honey Allergy Severe Unverified 08/21/19 10:17 bee venom protein (honey bee) Allergy Unknown Verified 08/21/19 10:17 kiwi Allergy Unknown Verified 08/21/19 10:17 Latex, Natural Rubber Allergy Unknown Verified 08/21/19 10:17 francisco Allergy Unknown Verified 08/21/19 10:17 pineapple Allergy Unknown Verified 08/21/19 10:17 lisdexamfetamine AdvReac Intermediate difficulty Verified 08/21/19 10:17 [From Vyvanse] falling asleep General Stated Complaint: Trauma MIKI: 3 Review of Systems Constitutional Constitutional: Denies fatigue and Denies headache(s) Eyes Eyes: Denies change in vision ENT Ears, Nose, Mouth, and Throat: Denies headache(s) Cardiovascular Cardiovascular: Denies chest pain and Denies dyspnea Respiratory Respiratory: Denies cough and Denies dyspnea Gastrointestinal Gastrointestinal: Denies abdominal pain, Denies nausea and Denies vomiting Genitourinary Genitourinary: Denies hematuria, Denies dysuria and Denies vaginal discharge Musculoskeletal Musculoskeletal: Denies back pain, Denies numbness and Denies tingling Integumentary/Breasts Skin/Breast: Denies rash Neurologic Neurologic: Denies headache(s), Denies numbness and Denies tingling Endocrine Endocrine: Denies fatigue Hematologic/Lymphatic Hematologic/Lymphatic: Denies easy bruising [facility] Medical History Acute left flank pain (Acute) Adjustment disorder with mixed emotional features (Acute) Anemia (Chronic) Taken iron for many years Attention deficit hyperactivity disorder (ADHD), combined type (Acute) Chronic serous otitis media (Acute) Concussion (Acute) Contusion of hip (Acute) Depression (Chronic) Dysmenorrhea (Acute) Excessive and frequent menstruation (Acute) Family disruption (Acute) History of recurrent UTIs (Acute) HX: contraception (Acute) Knee pain (Acute) Menometrorrhagia (Acute) Menstruation disorder (Acute) Migraine (Chronic) with visual aura Mild persistent asthma (Acute) Otitis (Chronic) Patent ductus arteriosus (Acute) Premature of unknown weight (Acute) Respiratory depression (Acute) Sleep disorder (Acute) Surgical History H/O dilation and curettage (Acute) 02/06/2019. Missed AB at 11 weeks. Family History Mother Substance abuse Maternal Grandmother Breast cancer Diabetes Celiac disease Maternal Aunt Celiac disease Maternal Cousin Celiac disease Social History Smoking/Tobacco Use Status: Former Tobacco Use Quit Date: 07/20/18 Tobacco: How many years used: 1 Quit status: quit date established Alcohol Intake: never Drug use: Never Substance use type: does not use Details: around second hand marijuana smoke Do you feel safe at home: Yes Do you feel safe in your relationship?: Yes History History 2 Para 0 Hx # Term Pregnancies 0 Multiple births 0 Hx # Pregnancies 0 Ectopic pregnancies 0 AB induced 0 Hx Number of Living Children 0 AB spontaneous 1 Exam Const General: cooperative, healthy appearing, comfortable and no acute distress Orientation: alert, awake and oriented x3 HENMT Head: normal to inspection, no palpable skull fracture, normocephalic and atraumatic Ears: external ears normal, TM's normal bilaterally and EAC's normal General nose exam: external nose normal Face and sinus: normal facial exam Mouth: oral mucosae normal and moist mucous membranes Throat: posterior oropharynx normal Eyes General: appearance normal, both eyes and all related structures Alignment and Position: alignment normal Periorbital: periorbital findings normal Eyelids: eyelids normal Conjunctivae: conjunctivae normal Sclera: sclerae normal Cornea: corneas normal Pupils: PERRL EOM: EOM intact bilaterally Direct ophthalmoscopy: normal light reflex Neck Neck: normal visual inspection, full ROM, trachea midline, supple and nontender Chest Chest: normal inspection of the chest and normal palpation of entire chest wall Resp Effort & Inspection: normal respiratory effort and able to speak in complete sentences Auscultation: clear to auscultation bilaterally Cardio Rate: regular rate Rhythm: regular rhythm GI Inspection: distended (28-1/2 weeks ) Palpation: firm (Consistent with 28-1/2 weeks ), no guarding, not rigid and nontender Auscultation: normal bowel sounds Back/Spine/Pelvis Back: No back tenderness Skin Rashes: no rashes Trauma: other (Dime sized ecchymosis to posterior right knee) Neuro General: patient alert, patient awake, patient oriented x3, moves all extremities and no focal motor deficits Cranial Nerves: CN's II-XI intact bilaterally Cognition: normal cognition Speech: speech normal Gait: normal gait Motor: muscle tone normal throughout and strength 5/5 throughout Sensory Exam: no sensory deficits noted Extrem General: full ROM, capillary refill normal, normal exam except as noted (Ecchymosis as described above), no pedal edema, no calf tenderness and normal gait Psych Appearance: grossly normal Mental Status: mental status grossly normal Course Vital Signs Vital signs: Vital Signs Temperature 37.2 C 09/22/19 17:13 Pulse 88 09/22/19 17:13 Respiratory Rate 18 09/22/19 17:13 Blood Pressure 114/63 09/22/19 17:13 Pulse Oximetry 97 09/22/19 17:13 Temperature 37.2 C 09/22/19 17:13 Temperature Source Temporal Artery Scan 09/22/19 17:13 Pulse 88 09/22/19 17:13 Respiratory Rate 18 09/22/19 17:13 Respiratory Effort 09/22/19 17:18 Respiratory Depth Normal 09/22/19 17:18 Blood Pressure 114/63 09/22/19 17:13 Pulse Oximetry 97 09/22/19 17:13 Oxygen Delivery Method Room Air 09/22/19 17:13 Oxygen Flow Rate 0 09/22/19 17:13
== END 2019-09-22 19:05 | disposition home or self-care (01) ==
LOC: ER 17:42 → OBS 17:49
PROVIDERS: Admitting Provider Obstetrics & Gynecology Gynecology; Emergency Provider Physician Assistant; PCP Pediatrics; Visit Provider Obstetrics & Gynecology Gynecology
DX: O9A.213 Injury, poisoning and certain other consequences of external causes complicating pregnancy, third trimester (principal); W19.XXXA Unspecified fall, initial encounter; Z3A.28 28 weeks gestation of pregnancy
CPT/HCPCS: 99285; 59025; 99283; G0378

== ENCOUNTER 2019-09-25 01:20 | Outpatient (CLI) | payer MEDICAID, SELFPAY ==
--- NOTE | 2019-09-25 07:05 | DI.US_ITS ---
EXAM: US OB F/U FACIAL/LVOT/RVOT CLINICAL HISTORY: f/u placenta location. COMPARISON: US OB F/U FACIAL/LVOT/RVOT from 07/17/2019 TECHNIQUE: Transabdominal obstetrical ultrasound performed. FINDINGS: Sonographic images demonstrate a single intrauterine gestation in cephalic position.. The placenta is anterior. The edge of the placenta measures 8.7 cm from the internal os. heart rate motion is Dopplered at: 143 bpm. Amount of amniotic fluid is within normal limits. IMPRESSION: No evidence of low-lying placenta. DATA REPOSITORY:
== END 2019-09-25 01:40 ==
PROVIDERS: PCP Pediatrics; Visit Provider Advanced Practice Midwife
DX: Z34.93 Encounter for supervision of normal pregnancy, unspecified, third trimester (principal); Z3A.28 28 weeks gestation of pregnancy
CPT/HCPCS: 76815

== ENCOUNTER 2019-09-27 11:49 | Outpatient (REF) | payer MEDICAID, SELFPAY ==
[2019-09-27 13:20] LABS: HCT 28.3 % (36.0-46.0); HGB 9.5 g/dL (12.0-15.5); Mean Corp. HGB Concentration 33.6 g/dL (32.0-36.0); Mean Corpuscular Hemoglobin 31.4 pg (27.0-33.0); Mean Corpuscular Volume 93.4 fL (80-95); Mean Platelet Volume 9.7 fL (8.0-11.0); Platelet Count 300 x1000/uL (130-400); RBC 3.03 m/cumm (4.00-5.20); White Blood Cell Count 7.99 k/cumm (4.4-10.8)
[2019-09-27 13:32] LABS: Glucose,1 Hr (Glucola) 135 mg/dL (80-140)
== END 2019-09-27 12:09 ==
LOC: LBN 11:49
PROVIDERS: PCP Pediatrics; Visit Provider Advanced Practice Midwife
DX: Z34.93 Encounter for supervision of normal pregnancy, unspecified, third trimester (principal)
CPT/HCPCS: 82950; 85027

== ENCOUNTER 2019-10-02 13:20 | Observation (INO) | payer MEDICAID, SELFPAY ==
[2019-10-02] MEDS: Lactated Ringers 1,000 ML 150 ML IV (14:57)
[2019-10-02] MEDS: IRON SUCROSE COMPLEX 200 MG in Normal Saline 100 ML 400 MG IVPB (15:00)
[2019-10-02] MEDS: Ondansetron 4 MG/2 ML VIAL 8 MG IVP (15:54)
[2019-10-02] MEDS: Metoclopramide 10 MG/2 ML VIAL IVP (16:01)
[2019-10-02] MEDS: Normal Saline Flush 10 ML SYR IVP (16:05)
[2019-10-03 15:03] LABS: COVID-19 RT-PCR Result NEGATIVE (Negative)
== END 2019-10-02 19:06 | disposition home or self-care (01) ==
PROVIDERS: Admitting Provider Advanced Practice Midwife; PCP Pediatrics; Visit Provider Advanced Practice Midwife
DX: O98.513 Other viral diseases complicating pregnancy, third trimester (principal); B34.9 Viral infection, unspecified; Z3A.30 30 weeks gestation of pregnancy; O99.013 Anemia complicating pregnancy, third trimester; D64.9 Anemia, unspecified
CPT/HCPCS: 96360; 96361; 96372; U0003; 59025; G0378; J1756; J2405; J2765

== ENCOUNTER 2019-10-19 19:43 | Observation (INO) | payer MEDICAID, SELFPAY ==
[2019-10-19 21:32] LABS: *AMPHETAMINES SCREEN URINE Negative (Negative); *BARBITURATES SCREEN URINE Negative (Negative); *BENZODIAZEPINES SCREEN URINE Negative (Negative); Cannabinoids THC Negative (Negative); Cocaine Screen,Urine Negative (Negative); METHADONE URINE SCREEN Negative (Negative); OPIATES URINE SCREEN Negative (Negative)
[2019-10-19 21:33] LABS: Tricyclic Antidepressants Negative (Negative)
== END 2019-10-19 22:05 | disposition home or self-care (01) ==
PROVIDERS: Admitting Provider Advanced Practice Midwife; PCP Pediatrics; Visit Provider Advanced Practice Midwife
DX: O47.03 False labor before 37 completed weeks of gestation, third trimester (principal); Z3A.32 32 weeks gestation of pregnancy
CPT/HCPCS: 80307

== ENCOUNTER 2019-10-22 10:54 | Outpatient (CLI) | payer MEDICAID, SELFPAY | END 2019-10-22 11:14 | PROVIDERS: PCP Pediatrics; Visit Provider Advanced Practice Midwife | DX: R10.32 Left lower quadrant pain (principal); Z3A.32 32 weeks gestation of pregnancy; O26.893 Other specified pregnancy related conditions, third trimester | CPT/HCPCS: 87086 ==

== ENCOUNTER 2019-10-23 11:01 | Observation (INO) | payer MEDICAID, SELFPAY ==
[2019-10-23 12:41] LABS: ROM Plus Negative
[2019-10-23 13:18] LABS: Fetal Fibronectin Negative (Negative)
== END 2019-10-23 13:30 | disposition home or self-care (01) ==
PROVIDERS: Admitting Provider Advanced Practice Midwife; PCP Pediatrics; Visit Provider Advanced Practice Midwife
DX: Z03.71 Encounter for suspected problem with amniotic cavity and membrane ruled out (principal); O98.813 Other maternal infectious and parasitic diseases complicating pregnancy, third trimester; O99.343 Other mental disorders complicating pregnancy, third trimester; B37.3 Candidiasis of vulva and vagina; F32.9 Major depressive disorder, single episode, unspecified; Z3A.33 33 weeks gestation of pregnancy
CPT/HCPCS: 84112; 59025; 82731; 87480; 87510; 87660; G0378

== ENCOUNTER 2019-11-02 10:45 | Outpatient (CLI) | payer MEDICAID, SELFPAY | END 2019-11-02 11:05 | PROVIDERS: PCP Pediatrics; Visit Provider Advanced Practice Midwife | DX: O26.893 Other specified pregnancy related conditions, third trimester (principal); O36.8130 Decreased fetal movements, third trimester, not applicable or unspecified; Z3A.34 34 weeks gestation of pregnancy ==

== ENCOUNTER 2019-11-04 08:34 | Outpatient (CLI) | payer MEDICAID, SELFPAY ==
[2019-11-04 14:25] LABS: HCT 30.3 % (36.0-46.0); HGB 10.1 g/dL (12.0-15.5); Mean Corp. HGB Concentration 33.3 g/dL (32.0-36.0); Mean Corpuscular Hemoglobin 30.6 pg (27.0-33.0); Mean Corpuscular Volume 91.8 fL (80-95); Mean Platelet Volume 9.6 fL (8.0-11.0); Platelet Count 284 x1000/uL (130-400); RBC Distribution Width 12.1 % (11.7-14.6); White Blood Cell Count 8.28 k/cumm (4.4-10.8)
[2019-11-04 14:47] LABS: Glucose,1 Hr (Glucola) 142 mg/dL (80-140)
== END 2019-11-04 08:54 ==
PROVIDERS: Advanced Practice Midwife; PCP Pediatrics; Visit Provider Advanced Practice Midwife
DX: Z34.93 Encounter for supervision of normal pregnancy, unspecified, third trimester (principal); Z3A.34 34 weeks gestation of pregnancy
CPT/HCPCS: 36415; 82950; 85027

== ENCOUNTER 2019-11-12 00:50 | Outpatient (RCR) | payer MEDICAID, SELFPAY ==
[2019-11-12 11:21] LABS: HGB 10.3 g/dL (12.0-15.5)
[2019-11-12] MEDS: IRON SUCROSE COMPLEX 200 MG in Normal Saline 100 ML 400 MG IVPB (11:27)
[2019-11-12] MEDS: Normal Saline Flush 10 ML SYR IVP (11:32)
--- NOTE | 2019-11-14 12:53 | DIABASSESS_ITS ---
DESCRIPTION/ASSESSMENT: Met with Carla at [facility]. She is 35 w 6 d. Failed her 1 hour glucola at 34 weeks (142 mg/dl), now dx with GDM. Strong family history of Dm2. Prepregnancy weight 127 lbs, +14 lbs. Weight gain acceptable, on low end. 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 . Has been keeping diet log/blood sugar logs. Most reading wnl. Provided education on DM including Hyper/hypoglycemia s/s with action plan for each scenario. Definition and types of CHO with examples, CHO counting, meal ideas, , DM meal planning and label reading literature. Provided a blood sugar and food record chart and materials to reiterate CHO counting techniques. Reviewed desirable BG levels with patient with food choices and portions for optimal outcomes.Provided her with GDM diet material and encouraged her to follow up weekly via phone/email. ACTION PLAN: Carla will follow up weekly with mortgage underwriter about meals/blood sugars levels- will continue to check BS as instructed by provider Carla will follow 3 meals, 2 snacks daily- maintain carb coune 175-200 g daily with 60-80 g protein. FLuid intake encouraged through out day.
== END 2019-11-19 23:59 | disposition home or self-care (01) ==
LOC: INF 00:50
PROVIDERS: PCP Pediatrics; Visit Provider Advanced Practice Midwife
DX: O99.013 Anemia complicating pregnancy, third trimester (principal); D64.9 Anemia, unspecified; Z71.3 Dietary counseling and surveillance
CPT/HCPCS: 36415; 96365; 85018; J1756

== ENCOUNTER 2019-11-12 17:01 | Outpatient (REF) | payer MEDICAID, SELFPAY ==
[2019-11-12 19:27] LABS: *AMPHETAMINES SCREEN URINE Negative (Negative); *BARBITURATES SCREEN URINE POSITIVE (Negative); *BENZODIAZEPINES SCREEN URINE Negative (Negative); Cannabinoids THC Negative (Negative); Cocaine Screen,Urine Negative (Negative); METHADONE URINE SCREEN Negative (Negative); OPIATES URINE SCREEN Negative (Negative)
[2019-11-12 19:36] LABS: Tricyclic Antidepressants Negative (Negative)
[2019-11-21 12:47] LABS: Buprenorphine Negative; Norbuprenorphine Negative
== END 2019-11-12 17:21 ==
LOC: LBN 17:01
PROVIDERS: PCP Pediatrics; Visit Provider Advanced Practice Midwife
DX: Z34.93 Encounter for supervision of normal pregnancy, unspecified, third trimester (principal); Z36.85 Encounter for antenatal screening for Streptococcus B
CPT/HCPCS: 80307; 87081

== ENCOUNTER 2019-11-19 01:19 | Outpatient (CLI) | payer MEDICAID, SELFPAY ==
--- NOTE | 2019-11-19 14:00 | DI.US_ITS ---
EXAM: US OB SAMANTHA WEIGHT CLINICAL HISTORY: S<D, O26.841. TECHNIQUE: Transabdominal obstetrical ultrasound performed. COMPARISON: US US OB F/U FACIAL/LVOT/RVOT from 09/25/2019 FINDINGS: Transabdominal obstetrical ultrasound performed. FINDINGS: Number of fetuses: One. position: Cephalic heart rate: 141 bpm. Placental location: Anterior no evidence of previa. BIOMETRIC DATA: EFW: 3077 grms 58% Composite Age: 37 weeks EDC: 12/10/2019 Heart Rate: 141BPM Amniotic fluid index: 12.6 cm. Amount of fluid is within normal limits. IMPRESSION: 1. Single live intrauterine gestation as above. DATA REPOSITORY:
== END 2019-11-19 01:39 ==
PROVIDERS: PCP Pediatrics; Visit Provider Advanced Practice Midwife
DX: O26.843 Uterine size-date discrepancy, third trimester (principal); Z3A.37 37 weeks gestation of pregnancy
CPT/HCPCS: 76816

== ENCOUNTER 2019-12-04 14:24 | Observation (INO) | payer MEDICAID, SELFPAY | END 2019-12-04 15:45 | disposition home or self-care (01) | PROVIDERS: Admitting Provider Advanced Practice Midwife; PCP Pediatrics; Visit Provider Advanced Practice Midwife | DX: O47.1 False labor at or after 37 completed weeks of gestation (principal); Z3A.39 39 weeks gestation of pregnancy; O26.893 Other specified pregnancy related conditions, third trimester; N89.8 Other specified noninflammatory disorders of vagina | CPT/HCPCS: 59025; G0378 ==

== ENCOUNTER 2019-12-10 11:30 | Outpatient (RCR) | payer MEDICAID, SELFPAY ==
[2019-11-26] MEDS: IRON SUCROSE COMPLEX 200 MG in Normal Saline 100 ML 400 MG IVPB (11:19)
[2019-11-26] MEDS: Normal Saline Flush 10 ML SYR IVP (11:20)
[2019-11-26 11:42] LABS: HGB 10.1 g/dL (12.0-15.5)
[2019-12-10] MEDS: Normal Saline Flush 10 ML SYR IVP (11:19)
[2019-12-10] MEDS: IRON SUCROSE COMPLEX 200 MG in Normal Saline 100 ML 400 MG IVPB (11:19)
[2019-12-10 11:23] LABS: HGB 11.2 g/dL (12.0-15.5)
== END 2019-12-20 23:59 | disposition home or self-care (01) ==
LOC: INF 11:30
PROVIDERS: PCP Pediatrics; Visit Provider Advanced Practice Midwife
DX: O99.013 Anemia complicating pregnancy, third trimester (principal); D50.9 Iron deficiency anemia, unspecified
CPT/HCPCS: 36415; 96365; 85018; J1756

== ENCOUNTER 2019-12-13 19:54 | Observation (INO) | payer MEDICAID, SELFPAY | END 2019-12-13 22:50 | disposition home or self-care (01) | PROVIDERS: Admitting Provider Advanced Practice Midwife; PCP Pediatrics; Visit Provider Advanced Practice Midwife | DX: O47.1 False labor at or after 37 completed weeks of gestation (principal); O48.0 Post-term pregnancy; Z3A.40 40 weeks gestation of pregnancy ==

== ENCOUNTER 2019-12-14 02:11 | Inpatient (IN) | payer MEDICAID, SELFPAY ==
[2019-12-14] VITALS (7 sets, daily range): BP systolic 60–123; BP diastolic 43–95; PULSE 72–110; RESP 15; TEMP 36–36.3; O2SAT 100
[2019-12-14 03:55] LABS: HCT 35.5 % (36.0-46.0); HGB 11.9 g/dL (12.0-15.5); Mean Corp. HGB Concentration 33.5 g/dL (32.0-36.0); Mean Corpuscular Hemoglobin 30.9 pg (27.0-33.0); Mean Corpuscular Volume 92.2 fL (80-95); Mean Platelet Volume 9.7 fL (8.0-11.0); Platelet Count 303 x1000/uL (130-400); RBC 3.85 m/cumm (4.00-5.20); RBC Distribution Width 14.1 % (11.7-14.6); White Blood Cell Count 12.54 k/cumm (4.4-10.8)
[2019-12-14] MEDS: Normal Saline Flush 10 ML SYR IVP (05:42)
[2019-12-14] MEDS: fentaNYL 100 MCG/2 ML VIAL (07:36)
[2019-12-14] MEDS: Bupivacaine 0.25% Pres-Free 30 ML VIAL (07:55)
[2019-12-14] MEDS: ePHEDrine 50 MG/ML VIAL IVP (08:31)
[2019-12-14] MEDS: Lactated Ringers 1,000 ML 125 ML IV (10:06)
[2019-12-14] MEDS: Terbutaline 1 MG/ML VIAL (11:30)
[2019-12-14] MEDS: AZITHROMYCIN 500 MG in Normal Saline 250 ML 250 MG IVPB (12:22)
[2019-12-14] MEDS: ceFAZolin 2 GM/50 ML BAG 50 GM (12:41)
--- NOTE | 2019-12-14 13:36 | PGE_ITS ---
Date of Service Date of service: 12/14/19 Time of Service: 13:36 Assessment and Plan Assessment and plan (1) S/P section: Status: Acute Assessment and plan: The patient was counseled on my recommendations for section. We discussed risks of surgery including hemorrhage, infection and injury to other organs such as bowel and bladder. All questions were answer ed to the patient's satisfaction and consent for surgery was obtained. Subjective Subjective Interval history since last seen: Late Entry I was called to evaluate the patient for an abnormal tracing. The patient had progressed to 8 cm in dilatation. The tracing showed several periods of bradycardia to 70s and 80s with slow recovery to baseline. Recurrent late and variable decelerations were noted. I reviewed my findings and concerns with the patient and recommended section for non-reassuring heart tracing remote from delivery. Objective Objective Clinical Data: Abnormal lab results 12/14/19 Range/Units 03:45 WBC 12.54 H (4.4-10.8) k/cumm RBC 3.85 L (4.00-5.20) m/cumm Hgb 11.9 L (12.0-15.5) g/dL Hct 35.5 L (36.0-46.0) % Vital Signs Temperature 97.2 F L 12/14/19 13:24 Pulse 106 H 12/14/19 13:24 Respiratory Rate 15 12/14/19 13:24 Blood Pressure 60/43 L 12/14/19 13:24 Pulse Oximetry 100 12/14/19 13:24 Oxygen Delivery Method Room Air 12/14/19 13:24 Intake & Output 12/13/19 12/14/19 12/14/19 23:59 11:59 23:59 Intake Total 800 / 800 Output Total 900 / 900 Balance -100 / -100 Weight 150 lb Intake: IV 800 / 800 Output: Urine 900 / 900 Other: Urine Color Yellow Urine Appearance Clear Emesis Description None Laboratory Results WBC 12.54 k/cumm (4.4-10.8) H 12/14/19 03:45 RBC 3.85 m/cumm (4.00-5.20) L 12/14/19 03:45 Hgb 11.9 g/dL (12.0-15.5) L 12/14/19 03:45 Hct 35.5 % (36.0-46.0) L 12/14/19 03:45 MCV 92.2 fL (80-95) 12/14/19 03:45 MCH 30.9 pg (27.0-33.0) 12/14/19 03:45 MCHC 33.5 g/dL (32.0-36.0) 12/14/19 03:45 RDW 14.1 % (11.7-14.6) 12/14/19 03:45 Plt Count 303 x1000/uL (130-400) 12/14/19 03:45 MPV 9.7 fL (8.0-11.0) 12/14/19 03:45 Patient ABO/Rh O Positive 12/14/19 03:45 Antibody Screen Negative 12/14/19 03:45
[2019-12-14 14:09] LABS: COVID-19 RT-PCR UVMMC Result Negative (Negative)
[2019-12-14] MEDS: HYDROmorphone 2 MG/ML VIAL 1 MG IVP ×2 (15:47→18:29)
[2019-12-14] MEDS: Ketorolac 30 MG/ML VIAL IVP (20:02)
[2019-12-14] MEDS: oxyCODONE 5 mg/Acetaminophen 325 mg TAB PO (21:30)
[2019-12-15] MEDS: Ketorolac 30 MG/ML VIAL IVP ×3 (02:22→14:46)
[2019-12-15] MEDS: Normal Saline Flush 10 ML SYR IVP ×6 (02:26→17:18)
[2019-12-15] MEDS: HYDROmorphone 2 MG/ML VIAL 1 MG IVP ×3 (03:03→17:18)
[2019-12-15 07:46] LABS: HGB 8.7 g/dL (12.0-15.5); Mean Corp. HGB Concentration 32.2 g/dL (32.0-36.0); Mean Corpuscular Hemoglobin 30.7 pg (27.0-33.0); Mean Corpuscular Volume 95.4 fL (80-95); Mean Platelet Volume 9.6 fL (8.0-11.0); Platelet Count 251 x1000/uL (130-400); RBC 2.83 m/cumm (4.00-5.20); RBC Distribution Width 14.8 % (11.7-14.6); White Blood Cell Count 13.79 k/cumm (4.4-10.8)
--- NOTE | 2019-12-15 08:34 | W.PM.PROGNOT ---
Date of Service Date of service: 12/15/19 Time of Service: 08:34 Assessment and Plan Assessment and plan (1) S/P section: Status: Acute Assessment and plan: POD 1 s/p primary LTCS for NRFHTs. Continue routine postoperative care. Discontinue mills catheter this morning. Encourage ambulation. Subjective Subjective Interval history since last seen: Doing well. Pain well controlled. Not yet ambulatory Tolerating regular diet Minimal lochia. Objective Objective Clinical Data: Abnormal lab results 12/15/19 Range/Units 07:30 WBC 13.79 H (4.4-10.8) k/cumm RBC 2.83 L (4.00-5.20) m/cumm Hgb 8.7 L D (12.0-15.5) g/dL Hct 27.0 L D (36.0-46.0) % MCV 95.4 H (80-95) fL RDW 14.8 H (11.7-14.6) % Vital Signs Temperature 97.3 F L 12/14/19 13:52 Pulse 110 H 12/14/19 13:52 Respiratory Rate 15 12/14/19 13:52 Blood Pressure 123/95 H 12/14/19 13:52 Pulse Oximetry 100 12/14/19 13:52 Respiratory End-tidal CO2 31 12/14/19 13:52 Oxygen Delivery Method Room Air 12/14/19 13:52 Pain Level 6 12/15/19 08:14 Intake & Output 12/14/19 12/14/19 12/15/19 11:59 23:59 11:59 Intake Total 1000 / 1000 Output Total 1000 / 1000 Balance 0 / 0 Weight 150 lb Intake: IV 1000 / 1000 Output: Urine 1000 / 1000 Other: Urine Color Yellow Urine Appearance Clear Emesis Description None Laboratory Results WBC 13.79 k/cumm (4.4-10.8) H 12/15/19 07:30 RBC 2.83 m/cumm (4.00-5.20) L 12/15/19 07:30 Hgb 8.7 g/dL (12.0-15.5) L D 12/15/19 07:30 Hct 27.0 % (36.0-46.0) L D 12/15/19 07:30 MCV 95.4 fL (80-95) H 12/15/19 07:30 MCH 30.7 pg (27.0-33.0) 12/15/19 07:30 MCHC 32.2 g/dL (32.0-36.0) 12/15/19 07:30 RDW 14.8 % (11.7-14.6) H 12/15/19 07:30 Plt Count 251 x1000/uL (130-400) 12/15/19 07:30 MPV 9.6 fL (8.0-11.0) 12/15/19 07:30 COVID-19 PCR Negative (Negative) 12/14/19 03:30 Nasopharyn COVID-19 PCR Not Applicable 12/14/19 03:30 Ref Test Perform Site [facility] lab 12/14/19 03:30 Patient ABO/Rh O Positive 12/14/19 03:45 Antibody Screen Negative 12/14/19 03:45
[2019-12-15] MEDS: Docusate Sodium 100 MG CAP PO ×2 (10:29→17:18)
[2019-12-15] MEDS: oxyCODONE 5 mg/Acetaminophen 325 mg TAB PO (22:00)
[2019-12-15] MEDS: Ibuprofen 600 MG TAB PO (22:00)
[2019-12-16] MEDS: oxyCODONE 5 mg/Acetaminophen 325 mg TAB PO ×3 (04:27→22:35)
[2019-12-16] MEDS: Ibuprofen 600 MG TAB PO ×2 (04:28→16:03)
[2019-12-16 18:05] LABS: Mean Corp. HGB Concentration 32.3 g/dL (32.0-36.0); Mean Corpuscular Hemoglobin 30.8 pg (27.0-33.0); Mean Corpuscular Volume 95.4 fL (80-95); Mean Platelet Volume 9.1 fL (8.0-11.0); Platelet Count 295 x1000/uL (130-400); RBC 3.25 m/cumm (4.00-5.20); RBC Distribution Width 14.7 % (11.7-14.6); White Blood Cell Count 11.99 k/cumm (4.4-10.8)
[2019-12-17] MEDS: oxyCODONE 5 mg/Acetaminophen 325 mg TAB PO ×2 (03:00→12:46)
[2019-12-17] MEDS: Ibuprofen 600 MG TAB PO (08:05)
--- NOTE | 2019-12-17 09:58 | PGE_ITS ---
Date of Service Date of service: 12/17/19 Time of Service: 09:58 Assessment and Plan Assessment and plan (1) S/P section: Status: Acute Assessment and plan: POD 3 s/p primary section for NRFHTs. Plan for discharge home today. Subjective Subjective Interval history since last seen: Doing well. Pain well controlled Ambulatory Tolerating regular diet. Minimal lochia Objective Objective Clinical Data: Abnormal lab results 12/16/19 Range/Units 17:57 WBC 11.99 H (4.4-10.8) k/cumm RBC 3.25 L (4.00-5.20) m/cumm Hgb 10.0 L (12.0-15.5) g/dL Hct 31.0 L (36.0-46.0) % MCV 95.4 H (80-95) fL RDW 14.7 H (11.7-14.6) % Vital Signs Temperature 97.3 F L 12/14/19 13:52 Pulse 110 H 12/14/19 13:52 Respiratory Rate 15 12/14/19 13:52 Blood Pressure 123/95 H 12/14/19 13:52 Pulse Oximetry 100 12/14/19 13:52 Respiratory End-tidal CO2 31 12/14/19 13:52 Oxygen Delivery Method Room Air 12/14/19 13:52 Pain Level 4 12/17/19 08:05 Intake & Output 12/16/19 12/16/19 12/17/19 11:59 23:59 11:59 Intake Total 250 / 250 Balance 250 / 250 Intake: IV 250 / 250 Laboratory Results WBC 11.99 k/cumm (4.4-10.8) H 12/16/19 17:57 RBC 3.25 m/cumm (4.00-5.20) L 12/16/19 17:57 Hgb 10.0 g/dL (12.0-15.5) L 12/16/19 17:57 Hct 31.0 % (36.0-46.0) L 12/16/19 17:57 MCV 95.4 fL (80-95) H 12/16/19 17:57 MCH 30.8 pg (27.0-33.0) 12/16/19 17:57 MCHC 32.3 g/dL (32.0-36.0) 12/16/19 17:57 RDW 14.7 % (11.7-14.6) H 12/16/19 17:57 Plt Count 295 x1000/uL (130-400) 12/16/19 17:57 MPV 9.1 fL (8.0-11.0) 12/16/19 17:57 COVID-19 PCR Negative (Negative) 12/14/19 03:30 Nasopharyn COVID-19 PCR Not Applicable 12/14/19 03:30 Ref Test Perform Site [facility] lab 12/14/19 03:30 Patient ABO/Rh O Positive 12/14/19 03:45 Antibody Screen Negative 12/14/19 03:45
--- NOTE | 2019-12-17 09:59 | W.PM.OP ---
Date of service: 12/14/19 Time of Service: 14:00 Operative Note Operative Note DATE OF PROCEDURE: 12/14/19 PRE-OP DIAGNOSIS: 40 weeks gestation. Spontaneous labor with NRFHTs POST-OP DIAGNOSIS: same PROCEDURE: Primary low transverse section SURGEON: Robel Thompson ASSISTING SURGEON: Nazia Lancaster ANESTHESIA: epidural ESTIMATED BLOOD LOSS: 600 PATHOLOGY: none sent COMPLICATIONS: None Patient was transported to: PACU Patient's condition: stable Findings: 1. Delivered vigorous LBM. Nuchal cord x 1 Procedure Description: The patient was taken to the operating room and after adequate spinal anesthesia was obtained the patient was placed in supine position with a left lateral tilt. The patient was prepped and draped in the usual sterile manner. A Pfannenstiel incision was made with a #10 blade scalpel and sharp dissection was carried down to the underlying layer of fascia. The fascia was incised the midline with a scalpel and the incision carried laterally in either direction with Philip scissors. The superior and inferior aspects of the fascial incision were dissected off the underlying layer of rectus muscles using both blunt and sharp dissection. The rectus were divided along the linea alba with blunt digital dissection. The peritoneum was entered sharply and the incision was extended superiorly and inferiorly with the Bovie cautery. The vesicouterine flap was tented up with pickups and incised with Metzenbaum scissors. The incision was extended laterally in either direction with the Metzenbaum scissors. The bladder flap was created digitally. The lower uterine segment was incised in a transverse manner with a scalpel and the incision was carried laterally in either direction via stretch. was found in cephalic presentation and delivered atraumatically. The mouth and nose were suctioned. The cord was clamped and cut. The infant was handed off to the awaiting adult ministries director. The placenta was manually extracted and the uterus cleared of all clots and debris. The hysterotomy was closed with a running locked stitch of #1 chromic. A second indicating layer of #1 chromic in a Lambert stitch was used to complete the repair and achieve hemostasis. The bladder flap was reapproximated with a running stitch of 0 Vicryl. The gutters were cleared of all clots and debris. The peritoneum was closed with a running stitch of 2-0 Vicryl. The subfascial space was thoroughly inspected and was noted to be hemostatic. The fascia was closed with a running stitch of 0 Vicryl. The subcutaneous tissues were closed with interrupted sutures of 3-0 Vicryl. The skin was closed with a running subcuticular stitch of 4-0 Monocryl and Dermabond was applied. The procedure was concluded at this point. Sponge, lap and needle counts were correct at the conclusion of the procedure. The patient tolerated the procedure well and was transferred to the floor in stable condition.
== END 2019-12-17 14:20 | disposition home or self-care (01) | DRG 787 ==
PROVIDERS: Obstetrics & Gynecology; Admitting Provider Advanced Practice Midwife; PCP Pediatrics; Visit Provider Advanced Practice Midwife
PROC: 10D00Z1 Extraction of Products of Conception, Low, Open Approach (ICD-10-PCS; CPT 59514; principal; 2019-12-14 11:55)
DX: Z37.0 Single live birth (principal); O48.0 Post-term pregnancy; O77.0 Labor and delivery complicated by meconium in amniotic fluid; O98.32 Other infections with a predominantly sexual mode of transmission complicating childbirth; O76 Abnormality in fetal heart rate and rhythm complicating labor and delivery; O69.81X0 Labor and delivery complicated by cord around neck, without compression, not applicable or unspecified; Z3A.40 40 weeks gestation of pregnancy; O99.344 Other mental disorders complicating childbirth; O99.814 Abnormal glucose complicating childbirth; A60.00 Herpesviral infection of urogenital system, unspecified; Z79.82 Long term (current) use of aspirin; Z87.440 Personal history of urinary (tract) infections; F32.9 Major depressive disorder, single episode, unspecified; Z67.40 Type O blood, Rh positive
CPT/HCPCS: 59514; 36415; 85027; 86850; 86900; 86901; 99233; U0003; J0171; J0456; J0690; J1885; J2405; J3010

== ENCOUNTER 2020-10-26 18:09 | Emergency (ER) | payer MEDICAID, SELFPAY ==
[2020-10-26 18:14] VITALS: BP 123/86; PULSE 103; RESP 18; TEMP 37.1; O2SAT 96
--- NOTE | 2020-10-26 19:09 | ED.GENADUL_ITS ---
Discharge Plan Disposition Patient Disposition: HOME Condition: Stable Discharge Details Clinical Impression: Menorrhagia Primary Care Provider: Luzmaria Barney ED Provider: Monika Monae Home Meds and New Rx's Prescriptions: No Action No Known Home Meds RF: 0 Discharge Instructions Instructions: Abnormal (Dysfunctional) Uterine Bleeding (ED) Additional Instructions: Follow-up with women's wellness wellness/CORPORATE PLANNING MANAGER in 1 to 2 weeks. Please follow- up sooner in 3 to 5 days if continued cramping and/or bleeding more than 1 pad an hour or dizziness lightheadedness. Follow up with primary care provider in 3-5 days. Return to ED sooner if any worsening or concerns. Increase oral fluids. Please take Tylenol or with food every 4-6 hours as needed for pain and swelling. Referrals: Luzmaria Barney [Primary Care Provider] - Paula Nogueira DO [OSTEOPATHIC DOCTOR] - Jennie Bradley [[facility] NURSE TREE LOADER [employer]AT] - Discharge Data Discharge Date/Time-TO BE ENTERED AT DEPARTURE: 10/26/20 20:11 Medical Decision Making 20-year-old female presents to the ER with chief complaint of vaginal bleeding. Patient states couple hours prior to arrival she had a gush she reports that she soaked through 3 pads in approximately an hour and a half. She does report passage of large clots and some abdominal cramping. She also reports dizziness lightheadedness. She states that she has been on her menses which began 6 days ago. She does have a history of irregular menses and reports that the 1 week earlier than normal time. She is para 3 1 AB 2 she reports that she had a elective approximately 1 month ago with no complications. She currently has an 11-month old at home which was delivered here via . Labs ordered including CBC, CMP, hCG quant to rule out or miscarriage. Differential also includes menorrhagia. Labs are largely within normal limits no evidence of anemia, hCG quant is 1 instructed to follow-up with CORPORATE PLANNING MANAGER in 3 to 5 days patient verbalized understanding remained hemodynamically stable throughout stay. Urinalysis shows squamous contamination. Patient remained hemodynamically stable. This text was generated using [employer] system, please disregard any oddities of phrase or misspellings. HPI General Mode of arrival: ambulatory . Date/Time Provider Initiated Documentation: 10/26/20 18:32 . Limitations to Documentation: no limitations . Information obtained by: patient . HPI Narrative: 20-year-old female presents to the ER with chief complaint of vaginal bleeding. Patient states couple hours prior to arrival she had a gush she reports that she soaked through 3 pads in approximately an hour and a half. She does report passage of large clots and some abdominal cramping. She also reports dizziness lightheadedness. She states that she has been on her menses which began 6 days ago. She does have a history of irregular menses and reports that the 1 week earlier than normal time. She is para 3 1 AB 2 she reports that she had a elective approximately 1 month ago with no complications. She currently has an 11-month old at home which was delivered here via . Related Data Home Medications Medication Instructions Recorded Confirmed Unknown [No Known Home Meds] 10/26/20 10/26/20 Allergies Allergy/AdvReac Type Severity Reaction Status Date / Time honey Allergy Severe Unverified 10/26/20 18:21 bee venom protein (honey bee) Allergy Unknown Verified 10/26/20 18:21 kiwi Allergy Unknown Verified 10/26/20 18:21 Latex, Natural Rubber Allergy Unknown Verified 10/26/20 18:21 francisco Allergy Unknown Verified 10/26/20 18:21 pineapple Allergy Unknown Verified 10/26/20 18:21 lisdexamfetamine AdvReac Intermediate difficulty Verified 10/26/20 18:21 [From Vyvanse] falling asleep Adhesives Allergy Severe Rash Uncoded 10/26/20 18:21 General Stated Complaint: CORPORATE PLANNING MANAGER MIKI: 3 Review of Systems Narrative: Constitutional: Negative for weight loss, alert and oriented, well groomed, normal body habitus, appears comfortable. HEENT: Denies trauma, headaches, blurry vision, nasal discharge, sore throat, trouble swallowing. Chest: Denies chest pain, palpitations, irregular rhythm, hypertension. Respiratory: Denies Shortness of breath, cough, hemoptysis. GI: Denies positive abdominal nausea, vomiting, diarrhea, constipation. : Denies dysuria, hematuria, flank pain, rectal bleeding. Positive vaginal bleeding Neuro: Denies , blurry vision, weakness, syncope, headache or facial numbness. Positive equinus with standing Hematologic: Denies easy bruising, intolerance to heat or cold, hair loss. [facility] Medical History (Updated 10/26/20 @ 20:01 by Monika Monae) Acute left flank pain Adjustment disorder with mixed emotional features Anemia Taken iron for many years Anxiety Attention deficit hyperactivity disorder (ADHD), combined type Chronic serous otitis media Concussion Contusion of hip Depression counseling since age 3, Medications in the past Dysmenorrhea Excessive and frequent menstruation Family disruption History of recurrent UTIs HX: contraception Knee pain Menometrorrhagia Menstruation disorder Migraine with visual aura Mild persistent asthma Otitis Patent ductus arteriosus Premature infant of unknown weight Respiratory depression Sleep disorder Surgical History H/O dilation and curettage 02/06/2019. Missed AB at 11 weeks. Family History Mother Substance abuse Maternal Grandmother Breast cancer Diabetes Celiac disease Maternal Aunt Celiac disease Maternal Cousin Celiac disease Social History Smoking/Tobacco Use Status: Former Tobacco Use Quit Date: 07/20/18 Tobacco: How many years used: 1 Quit status: quit date established Smoking risk assessment performed?: Yes Alcohol Intake: never Drug use: Never Substance use type: does not use Details: around second hand marijuana smoke Do you feel safe at home: Yes Do you feel safe in your relationship?: Yes History History 2 Para 0 Hx # Term Pregnancies 0 Multiple births 0 Hx # Pregnancies 0 Ectopic pregnancies 0 AB induced 0 Hx Number of Living Children 0 AB spontaneous 1 Past Pregnancies Del. 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 Appears stated age. Normal body habitus. Head: Normocephalic, no trauma. Eyes: Pupils PERRLA, Red reflex noted, EOM's intact. Eyelids symmetrical without lesions, discharge, or swelling. ENT: Bilateral TM's WNL, External ear normal to inspection, no mastoid TTP, swelling, or erythema, Nasal turbinates WNL, no nasal discharge. Normal dentition, Posterior pharynx WNL, no exudate. Chest: RRR, Normal S1, S2, distal pulses intact. Resp: Lungs clear to auscultation bilaterally, no wheezes, rales, or rhonchi. Musculoskeletal: Normal gait, 5/5 strength to all four extremities. Abdomen: Soft, suprapubic tenderness with palpation. Nondistended. Genitourinary: Pelvic exam performed with Katherine COTE as jewel hole finish opener. Patient tolerated well. Small bleeding noted from the cervical os. No lesions or suspicious findings. No cervical motion tenderness no adnexal tenderness with palpation. Skin: No suspicious rashes or lesions. Capillary refill less than 2 sec. Neurologic: Cranial nerves II-XII intact. Alert and oriented x 3. DTR's intact. Hematologic/Lymphatic: No ecchymosis, no lymphadenopathy. Course Vital Signs Vital signs: Vital Signs Temperature 37.1 C 10/26/20 18:14 Pulse 103 H 10/26/20 18:14 Respiratory Rate 18 10/26/20 18:14 Blood Pressure 123/86 10/26/20 18:14 Pulse Oximetry 96 10/26/20 18:14 Temperature 37.1 C 10/26/20 18:14 Temperature Source Temporal Artery Scan 10/26/20 18:14 Pulse 103 H 10/26/20 18:14 Respiratory Rate 18 10/26/20 18:14 Respiratory Effort Non-Labored 10/26/20 18:19 Blood Pressure 123/86 10/26/20 18:14 Blood Pressure Position Sitting 10/26/20 18:14 Pulse Oximetry 96 10/26/20 18:14 Oxygen Delivery Method Room Air 10/26/20 18:14 Oxygen Flow Rate 0 10/26/20 18:14 Pain Level 2 10/26/20 18:45
[2020-10-26] MEDS: Normal Saline 1,000 ML 1000 ML IV (19:15)
[2020-10-26 19:27] LABS: Abs Immature Grans 0.02 10^3/uL (0.0-0.06); Absolute Basophil Count 0.07 10^3/uL (0.0-0.2); Absolute Eosinophil Count 0.34 10^3/uL (0.0-0.7); Absolute Lymphocyte Count 2.55 10^3/uL (1.2-3.4); Absolute Neutrophil Count 4.01 10^3/uL (1.2-6.7); Basophils % 0.9; Eosinophils % 4.6; HCT 34.9 % (36.0-46.0); HGB 11.6 g/dL (11.2-15.7); Immature Grans % 0.3; Lymphocytes % 34.5; MCH 29.9 pg (27.0-33.0); MCHC 33.2 % (32.0-36.0); MCV 89.9 fL (80-95); Monocytes % 5.4; Neutrophils % 54.3; Nucleated RBC 0 %; Platelet Count 334 10^3/uL (130-400); RBC 3.88 10^6/uL (3.93-5.22); RDW 12.2 % (11.7-14.6); RDW-SD 40.2 fL; WBC 7.39 10^3/uL (4.4-10.8)
[2020-10-26 19:54] LABS: ALT 20 U/L (14-59); AST 15 U/L (15-37); Albumin 3.9 g/dL (3.4-5.0); Alkaline Phosphatase 79 U/L (46-116); Anion Gap 7.6 mmol/L (3-11); BUN 9 mg/dL (7-18); Bilirubin, Total 0.2 mg/dL (0.2-1.0); CO2 28.4 mmol/L (21.0-32.0); CREATININE 0.7 mg/dL (0.55-1.02); Calcium 8.9 mg/dL (8.5-10.1); Chloride 106 mmol/L (98-107); Glucose 95 mg/dL (74-106); HCG Quant, Pregnancy 1 mIU/mL (1-3); Potassium 3.6 mmol/L (3.5-5.1); Sodium 142 mmol/L (136-145); Total Protein 7.4 g/dL (6.4-8.2)
[2020-10-26 20:00] VITALS: BP 110/70; PULSE 80; RESP 16; O2SAT 100
--- NOTE | 2020-10-26 20:35 | NUR.NOTE ---
Nursing Note:Chaperoned pelvic exam, no cultures taken. Patient tolerated exam without issue.
== END 2020-10-26 20:11 | disposition home or self-care (01) ==
PROVIDERS: Emergency Provider Registered Nurse Emergency; PCP Pediatrics
DX: N92.0 Excessive and frequent menstruation with regular cycle (principal); R42 Dizziness and giddiness
CPT/HCPCS: 36415; 80053; 86900; 86901; 96360; 99284; 84702; 85025; 99283

== ENCOUNTER 2021-06-30 15:22 | Outpatient (REF) | payer MEDICAID, SELFPAY ==
--- NOTE | 2021-06-30 15:00 | PAPFT_PTH ---
PATIENT: Carla Alas LOC: [facility] U#:[id number] AGE/SX: 20/F ROOM: RE06/30/[address]: Terri Paez NP : [id number] BED: DIS: 06/30/2021 SPEC #: [id number] RECD: 06/30/21 18:28 STATUS: YAS REQ #: [id number] SEPIDEH: 06/30/21 15:[address]: Jeannine KEITA,Terri DEPT: [facility] Cytology RECD BY: Barbara Mccabe ENTERED: 06/30/21 18:28 SP TYPE: PAPFT OTHR DR: Luzmaria Barney Tissues: 1 - CX/ENDOCX FOR PAP SMEARS Procedures: PAP THIN PREP/UVM Screening Comments: [id number]
== END 2021-06-30 15:23 | disposition home or self-care (01) ==
LOC: LBN 15:22
PROVIDERS: PCP Pediatrics; Visit Provider Nurse Practitioner Women's Health
DX: Z12.4 Encounter for screening for malignant neoplasm of cervix (principal)
CPT/HCPCS: 88142; 87624

== ENCOUNTER 2022-10-14 01:44 | Outpatient (CLI) | payer MEDICAID, SELFPAY ==
[2022-10-14 11:25] LABS: Panorama Kit Sent via Fed Ex
[2022-10-14 11:27] LABS: Abs Immature Grans 0.03 10^3/uL (0.0-0.06); Absolute Eosinophil Count 0.64 10^3/uL (0.0-0.7); Absolute Lymphocyte Count 2.47 10^3/uL (1.2-3.4); Absolute Neutrophil Count 4.97 10^3/uL (1.2-6.7); Basophils % 1.1; Eosinophils % 7.3; HCT 33.2 % (36.0-46.0); HGB 11.5 g/dL (11.2-15.7); Immature Grans % 0.3; Lymphocytes % 28.4; MCH 30.7 pg (27.0-33.0); MCHC 34.6 % (32.0-36.0); MCV 89 fL (80-95); MPV 8.8 fL (8.0-11.0); Monocytes % 5.7; Neutrophils % 57.2; Platelet Count 302 10^3/uL (130-400); RBC 3.74 10^6/uL (3.93-5.22); RDW 12.6 % (11.7-14.6); RDW-SD 41.2 fL; WBC 8.71 10^3/uL (4.4-10.8)
[2022-10-17 09:19] LABS: Hepatitis B Surface Ag Negative (Negative)
[2022-10-17 09:54] LABS: HIV-1/2 Ag & Ab Screen Negative (Negative)
[2022-10-17 10:05] LABS: Varicella IgG Antibody Positive (See Note)
[2022-10-17 10:08] LABS: Rubella IgG Ab (UVM) Positive (See Note)
[2022-10-17 10:11] LABS: Hepatitis C Ab w Rflx HCV PCR Negative (Negative)
[2022-10-19 15:50] LABS: Syphilis IgG w/Reflex Nonreactive (Nonreactive)
== END 2022-10-14 01:45 | disposition home or self-care (01) ==
LOC: LBO 01:44
PROVIDERS: Advanced Practice Midwife; PCP Pediatrics; Visit Provider Advanced Practice Midwife
DX: Z34.91 Encounter for supervision of normal pregnancy, unspecified, first trimester (principal)
CPT/HCPCS: 36415; 86787; 86803; 86850; 86900; 86901; 87340; 87389; 85025; 86762; 86780

== ENCOUNTER 2022-10-14 11:51 | Outpatient (REF) | payer MEDICAID, SELFPAY ==
[2022-10-14 13:34] LABS: *AMPHETAMINES SCREEN URINE Negative (Negative); *BARBITURATES SCREEN URINE Negative (Negative); *BENZODIAZEPINES SCREEN URINE Negative (Negative); Cannabinoids THC Negative (Negative); Cocaine Screen,Urine Negative (Negative); METHADONE URINE SCREEN Negative (Negative); OPIATES URINE SCREEN Negative (Negative)
[2022-10-14 13:35] LABS: Tricyclic Antidepressants Negative (Negative)
[2022-10-21 11:05] LABS: Buprenorphine Negative ng/mL (Cutoff: 5.0); Norbuprenorphine Negative ng/mL (Cutoff: 2.5)
== END 2022-10-14 11:52 | disposition home or self-care (01) ==
LOC: LBN 11:51
PROVIDERS: PCP Pediatrics; Visit Provider Advanced Practice Midwife
DX: Z34.91 Encounter for supervision of normal pregnancy, unspecified, first trimester (principal)
CPT/HCPCS: 80307; 80348; 87086

== ENCOUNTER 2022-11-16 21:35 | Emergency (ER) | payer MEDICAID, SELFPAY ==
[2022-11-16 21:38] VITALS: BP 116/63; PULSE 84; RESP 16; TEMP 37; O2SAT 100
--- NOTE | 2022-11-16 21:51 | W.ED.GENAD ---
Discharge Plan Disposition Patient Disposition: Home Condition: Stable Discharge Details Clinical Impression: Acute myofascial strain of lumbar region Primary Care Provider: Luzmaria Barney ED Provider: Monika Monae Home Meds and New Rx's Prescriptions: New cyclobenzaprine 10 mg tablet 10 mg PO TID PRN (Reason: muscle spasm) Qty: 10 0RF Rx Instructions: Take 1 tablet by mouth 3 times a day as needed for muscle spasm lidocaine 5 % adhesive patch,medicated 1 patch topical DAILY Qty: 15 0RF Rx Instructions: leave on most painful area for up to 12 hrs No Action prenat.vits,reynold,[id number] Tablet 1 tab PO DAILY ferrous gluconate [Ferate] 240 mg (27 mg iron) tablet 240 mg PO DAILY Qty: 90 4RF Discharge Instructions Instructions: Back Pain (ED), Lower Back Exercises (ED) Additional Instructions: Alternate ice and heat. Take the medications as directed. Please take Tylenol or Ibuprofen with food every 4-6 hours as needed for pain and swelling. Follow up with primary care provider in 3-5 days. Return to ED sooner if any worsening or concerns. Increase oral fluids. No evidence of urinary tract infection Stand Alone Forms: Work Release Referrals: Luzmaria Barney [Primary Care Provider] - 3 days Medical Decision Making 22-year-old female presents to the ER with a chief complaint of left lower lumbar paraspinous pain has been ongoing for approximately 4 days. She is 16 weeks . She denies any problems urinating. She does have pain that radiates into her left leg. No loss of bowel or bladder control no saddle anesthesia. She does have a past medical history of adjustment disorder, ADHD, anxiety depression. She has not taken any medications prior to arrival. Urinalysis ordered, lidocaine patch and 10 mg of Flexeril and a gram of Tylenol. UA WNL Patient given 3 tablets of Flexeril to go prescription for lidocaine patches and Flexeril. Instructed to alternate ice and heat take Tylenol as needed. This text was generated using [employer]ation system, please disregard any oddities of phrase or misspellings. HPI General Mode of arrival: ambulatory. Date/Time Provider Initiated Documentation: 11/16/22 21:43. Limitations to Documentation: no limitations. Information obtained by: patient, RN notes reviewed and old records reviewed. HPI Narrative: 22-year-old female presents to the ER with a chief complaint of left lower lumbar paraspinous pain has been ongoing for approximately 4 days. She is 16 weeks . She denies any problems urinating. She does have pain that radiates into her left leg. No loss of bowel or bladder control no saddle anesthesia. She does have a past medical history of adjustment disorder, ADHD, anxiety depression. She has not taken any medications prior to arrival. Related Data Home Medications Medication Instructions Recorded Confirmed prenat.vits,reynold,[id number] 1 tab PO DAILY 08/31/22 11/11/22 ferrous gluconate 240 mg (27 mg 240 mg PO DAILY #90 tabs 11/11/22 11/11/22 iron) tablet (Ferate) cyclobenzaprine 10 mg tablet 10 mg PO TID PRN muscle spasm #10 11/16/22 tabs lidocaine 5 % topical patch 1 patch topical DAILY #15 ea 11/16/22 Previous Rx's Medication Instructions Recorded ferrous gluconate 240 mg (27 mg 240 mg PO DAILY #90 tabs 11/11/22 iron) tablet (Ferate) cyclobenzaprine 10 mg tablet 10 mg PO TID PRN muscle spasm #10 11/16/22 tabs lidocaine 5 % topical patch 1 patch topical DAILY #15 ea 11/16/22 Allergies Allergy/AdvReac Type Severity Reaction Status Date / Time honey Allergy Severe Verified 11/11/22 15:11 bee venom protein (honey bee) Allergy Unknown Verified 11/11/22 15:11 kiwi Allergy Unknown Verified 11/11/22 15:11 Latex, Natural Rubber Allergy Unknown Verified 11/11/22 15:11 francisco Allergy Unknown Verified 11/11/22 15:11 pineapple Allergy Unknown Verified 11/11/22 15:11 lisdexamfetamine AdvReac Intermediate difficulty Verified 11/11/22 15:11 [From Vyvanse] falling asleep Adhesives Allergy Severe Rash Uncoded 11/11/22 15:11 General Stated Complaint: Orthopedic MIKI: 4 Review of Systems All systems reviewed & are unremarkable except as noted in HPI and below ENT Ears, Nose, Mouth, and Throat: Denies neck pain Musculoskeletal Musculoskeletal: Reports as per HPI, Reports back pain, Denies neck pain, Denies numbness and Reports radiating pain into limb Neurologic Neurologic: Denies numbness PFSH All Active Problems (Updated 11/16/22 @ 22:14 by Monika Monae NP) Acute myofascial strain of lumbar region (Acute) Marijuana use (Acute) History of recurrent UTIs (Acute) Currently (Acute) Previous delivery affecting , antepartum (Acute) Anxiety (Chronic) Depression (Chronic) counseling since age 3, Medications in the past Anemia (Chronic) Taken iron for many years Migraine (Chronic) with visual aura Medical History Adjustment disorder with mixed emotional features Attention deficit hyperactivity disorder (ADHD), combined type Chronic serous otitis media Concussion Contusion of hip Dysmenorrhea Excessive and frequent menstruation Family disruption HX: contraception Knee pain Menometrorrhagia Menstruation disorder Mild persistent asthma Otitis Patent ductus arteriosus Premature infant of unknown weight Respiratory depression Sleep disorder Surgical History H/O dilation and curettage 02/06/2019. Missed AB at 11 weeks. 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 Date GA/Weeks # Preg Succ Route Wgt Sex Labor Lgth Anesthesia Location Prov Complic 02/06/19 11 12/14/19 40 No Yes 3316.894 g Male labored X12 hrs regional [facility]. Donna Garcia did surgery 09/19/20 Delivery Date: 02/06/19 Last Updated by: Fernanda Pineda MD MAB D&C Delivery Date: 12/14/19 Last Updated by: Lynne Bradley nonreassuring FHT @ 7 cm Delivery Date: 09/19/20 Last Updated by: Fernanda Pineda MD ETOP Exam Narrative Exam Narrative: Constitutional: Alert and oriented x3. Appears stated age. Normal body habitus. Head: Normocephalic, no trauma. Chest: RRR, Normal S1, S2, distal pulses intact. Resp: Lungs clear to auscultation bilaterally, no wheezes, rales, or rhonchi. Abdomen: Soft, non-distended, Normoactive bowel sounds all 4 quads. Musculoskeletal: Normal gait, 5/5 strength to all four extremities. Left paraspinous tenderness no midline pain. Skin: No suspicious rashes or lesions. Capillary refill less than 2 sec. Neurologic: Cranial nerves II-XII intact. Alert and oriented x 3. Motor: No deficits noted. Sensory: Intact bilaterally all 4 extremities. Reflexes: DTR's intact bilaterally.. Hematologic/Lymphatic: No ecchymosis, no lymphadenopathy. Course Vital Signs Vital signs: Vital Signs Temperature 37.0 C 11/16/22 21:38 Pulse 84 11/16/22 21:38 Respiratory Rate 16 11/16/22 21:38 Blood Pressure 116/63 11/16/22 21:38 Pulse Oximetry 100 11/16/22 21:38 Temperature 37.0 C 11/16/22 21:38 Pulse 84 11/16/22 21:38 Respiratory Rate 16 11/16/22 21:38 Respiratory Effort Normal, Non-Labored 11/16/22 21:45 Blood Pressure 116/63 11/16/22 21:38 Pulse Oximetry 100 11/16/22 21:38 Oxygen Delivery Method Room Air 11/16/22 21:38 Oxygen Flow Rate 0 11/16/22 21:38 Pain Level 8 11/16/22 21:38
[2022-11-16 21:57] LABS: Bilirubin Negative (Negative); Blood Negative (Negative); Clarity Clear (Clear); Glucose Negative (Negative); Ketones Negative (Negative); Leukocyte Esterase Negative (Negative); Nitrite Negative (Negative); Specific Gravity 1.015 (1.005-1.025); Urobilinogen 0.2 mg/dL (Up to 0.2)
[2022-11-16] MEDS: Cyclobenzaprine 10 MG TAB PO (21:59)
[2022-11-16] MEDS: Lidocaine 5% Patch 1 PATCH TP (21:59)
[2022-11-16] MEDS: Acetaminophen 500 MG TAB 1000 MG PO (21:59)
[2022-11-16] MEDS: Cyclobenzaprine 10 MG TAB, 3 TABS/BTL PO (22:18)
== END 2022-11-16 22:28 | disposition home or self-care (01) ==
PROVIDERS: Emergency Provider Registered Nurse Emergency; PCP Pediatrics
DX: S39.012A Strain of muscle, fascia and tendon of lower back, initial encounter (principal); X58.XXXA Exposure to other specified factors, initial encounter
CPT/HCPCS: 99283; 81003; 99284

== ENCOUNTER 2022-12-07 03:09 | Outpatient (CLI) | payer MEDICAID, SELFPAY ==
--- NOTE | 2022-12-07 12:45 | DI.US_ITS ---
Exam(s) US OB 2-3 TRIMESTER EXAM: US OB 2-3 TRIMESTER CLINICAL HISTORY: survey,z34.90. TECHNIQUE: Transabdominal obstetrical ultrasound performed. COMPARISON: No exams were available for comparison FINDINGS: Number of fetuses: One. position: Variable Placental grade: 1 Placental location: Anterior no evidence of previa. BIOMETRIC DATA: BPD: 47mm = 20+ 2 weeks HC: 179mm = 20+ 2 weeks AC: 160mm = 21+1 weeks FL: 34mm = 20+ 5 weeks Cisterna Magna: 4.8 mm Cerebellum: 1.9 cm EFW: 381 grms greater than 97% Composite Age: 20+ 4 weeks EDC by US: 22 April 2024 Heart Rate: 143BPM Amniotic fluid : Amount of fluid is within normal limits. ANATOMICAL SURVEY: Four-chambered heart: Unremarkable. LVOT: Unremarkable. RVOT: Unremarkable. Left-sided stomach: Unremarkable. urinary bladder: Unremarkable. Bilateral kidneys: Unremarkable. Three-vessel cord: Unremarkable. Cord insertion: Unremarkable. Posterior fossa:Unremarkable. ventricles: Unremarkable. nose: Unremarkable. lips: Unremarkable. palate: Unremarkable. spine: Unremarkable. Two arms and two legs: Unremarkable. IMPRESSION: 1. Single live intrauterine gestation as above. 2. Normal anatomic survey. DATA REPOSITORY:
== END 2022-12-07 03:29 ==
LOC: DI 03:09
PROVIDERS: PCP Pediatrics; Visit Provider Advanced Practice Midwife
DX: Z34.92 Encounter for supervision of normal pregnancy, unspecified, second trimester (principal)
CPT/HCPCS: 76805

== ENCOUNTER 2023-02-14 15:19 | Outpatient (CLI) | payer MEDICAID, SELFPAY ==
[2023-02-14 16:05] VITALS: BP 115/63; PULSE 96; TEMP 36.7
[2023-02-14 16:06] VITALS: BP 115/63; PULSE 96
[2023-02-14 17:28] LABS: HCT 27.4 % (36.0-46.0); HGB 9.2 g/dL (11.2-15.7); MCH 30.2 pg (27.0-33.0); MCHC 33.6 % (32.0-36.0); MCV 90 fL (80-95); MPV 8.9 fL (8.0-11.0); Platelet Count 284 10^3/uL (130-400); RBC 3.05 10^6/uL (3.93-5.22); RDW 11.7 % (11.7-14.6); RDW-SD 38.1 fL; WBC 9.07 10^3/uL (4.4-10.8)
[2023-02-14] MEDS: Calcium Carbonate *TUMS* 500 MG CHEW 1000 MG PO (17:34)
[2023-02-14 17:42] LABS: ALT 11 U/L (14-59); AST 13 U/L (15-37); Albumin 2.7 g/dL (3.4-5.0); Alkaline Phosphatase 91 U/L (46-116); Anion Gap 8.5 mmol/L (3-11); BUN 3 mg/dL (7-18); Bilirubin, Total 0.2 mg/dL (0.2-1.0); CO2 25.5 mmol/L (21.0-32.0); CREATININE 0.4 mg/dL (0.55-1.02); Calcium 8.6 mg/dL (8.5-10.1); Chloride 102 mmol/L (98-107); Estimated GFR 142.54 (mL/min/1.73m2); Glucose 85 mg/dL (74-106); Potassium 3.5 mmol/L (3.5-5.1); Sodium 136 mmol/L (136-145); Total Protein 6.8 g/dL (6.4-8.2)
== END 2023-02-14 18:22 | disposition home or self-care (01) ==
LOC: BCD 15:21 → OBS 15:25
PROVIDERS: PCP Pediatrics; Visit Provider Obstetrics & Gynecology Gynecology
DX: O47.03 False labor before 37 completed weeks of gestation, third trimester (principal); Z3A.32 32 weeks gestation of pregnancy
CPT/HCPCS: 80053; 85027; 59025

== ENCOUNTER → 2023-02-16 03:46 | Outpatient (CLI) | payer MEDICAID, SELFPAY ==
--- NOTE | 2023-02-16 07:00 | DI.US_ITS ---
Exam(s) US ABDOMEN EXAM: US ABDOMEN CLINICAL HISTORY: abd pain radiating to her back. 29w EGA,R10.9, TECHNIQUE: Ultrasound of complete upper abdomen performed using standard protocol. COMPARISON: US US OB 2-3 TRIMESTER from 12/07/2022 FINDINGS: There is no ascites evident. LIVER: There are no hepatic lesions evident nor obvious dilatation of intrahepatic ducts. GALLBLADDER/BILIARY: There are no gallstones. No gallbladder wall edema nor pericholecystic fluid. The common hepatic duct isnot dilated, measuring 2.3mm at the level of gail hepatis. PANCREAS: Not well seen due to overlying bowel gas. SPLEEN: Upper normal size. No splenic lesions. KIDNEYS:Left kidney unremarkable. However, there is significant hydronephrosis of the right kidney. There is no significant thinning of the cortical mantle. No cysts nor solid lesions seen in the kid aracelis. ABDOMINAL AORTA: There is no evidence of abdominal aortic aneurysm. IVC: Normal diameter where visualized. IMPRESSION: 1. There is unilateral right-sided hydronephrosis-moderate. 2. No evidence of cholelithiasis nor dilatation of the biliary tree. 3. Pancreas not well seen on this study due to overlying bowel gas. DATA REPOSITORY:
== END ==
PROVIDERS: PCP Pediatrics; Visit Provider Obstetrics & Gynecology Gynecology
DX: O26.892 Other specified pregnancy related conditions, second trimester (principal); N13.30 Unspecified hydronephrosis
CPT/HCPCS: 76700

== ENCOUNTER 2023-02-16 05:06 | Outpatient (CLI) | payer MEDICAID, SELFPAY ==
--- NOTE | 2023-02-14 19:04 | W.OBNST ---
Date of service: 02/14/23 Time of Service: 19:05 NST Evaluation Reason for NST Reasons for Nonstress Test: OTHER, SEE COMMENT (Maternal discomfort at 29w1d EGA.) Gestational Age Gestational Age in Weeks and Days: 29 Weeks and 1Days Test and Monitor Explained Test/Monitor Explained: Test Explained NST Information NST Interventions: None NST Evaluation Patient States Movement: Present Variability: Moderate 6-25 bpm Accelerations: 10x10 Decelerations: None NST Results: Reactive Note Ultrasound Done: N/A. NST Note Note: Pt presented with report of worsening abdominal pain and not feeling well. She has been experiencing heartburn for majority of that she treats with OTC Tums, with good relief. On PE she has focal tenderness at epigastric region. No mass on palpation. Pain is a sharp episodic and travels to her back. Not precipitated or alleviated by anything. Labs: Nl CMP, Hct 27%. Pt discharge home with Rx for Omeprazole, abd u/s ordered, and plan to begin weekly iron infusions. She will f/u in [facility] 02/16/23. NST Reviewed and Verified by: Angela Payne
[2023-02-16 11:54] LABS: HCT 27.1 % (36.0-46.0); HGB 9.1 g/dL (11.2-15.7); MCH 30.2 pg (27.0-33.0); MCHC 33.6 % (32.0-36.0); MCV 90 fL (80-95); MPV 8.9 fL (8.0-11.0); Platelet Count 279 10^3/uL (130-400); RBC 3.01 10^6/uL (3.93-5.22); RDW 11.9 % (11.7-14.6); RDW-SD 39.1 fL; WBC 7.86 10^3/uL (4.4-10.8)
[2023-02-16 12:42] LABS: Glucose,1 Hr (Glucola) 109 mg/dL (80-140)
== END 2023-02-16 05:07 | disposition home or self-care (01) ==
LOC: LBO 05:06
PROVIDERS: PCP Pediatrics; Visit Provider Obstetrics & Gynecology Gynecology
DX: Z34.93 Encounter for supervision of normal pregnancy, unspecified, third trimester (principal); Z3A.29 29 weeks gestation of pregnancy
CPT/HCPCS: 36415; 82950; 85027

== ENCOUNTER 2023-02-17 02:55 | Outpatient (RCR) | payer MEDICAID, SELFPAY ==
[2023-02-17] MEDS: Normal Saline Flush 10 ML SYR IVP (09:24)
[2023-02-17] MEDS: IRON SUCROSE COMPLEX 200 MG in Normal Saline 100 ML 440 MG IVPB (09:27)
== END 2023-02-18 23:59 | disposition home or self-care (01) ==
LOC: INF 02:55
PROVIDERS: PCP Pediatrics; Visit Provider Obstetrics & Gynecology Gynecology
DX: D50.9 Iron deficiency anemia, unspecified (principal)
CPT/HCPCS: 96365; J1756

== ENCOUNTER 2023-03-02 14:27 | Outpatient (REF) | payer MEDICAID, SELFPAY | END 2023-03-02 14:28 | disposition home or self-care (01) | LOC: LBN 14:27 | PROVIDERS: PCP Pediatrics; Visit Provider Obstetrics & Gynecology | DX: O26.893 Other specified pregnancy related conditions, third trimester (principal); R30.0 Dysuria | CPT/HCPCS: 87077; 87086; 87186 ==

== ENCOUNTER 2023-03-03 05:47 | Outpatient (RCR) | payer MEDICAID, SELFPAY ==
[2023-02-24 13:26] LABS: HGB 9.2 g/dL (11.2-15.7)
[2023-02-24] MEDS: Normal Saline Flush 10 ML SYR IVP (13:42)
[2023-02-24] MEDS: IRON SUCROSE COMPLEX 200 MG in Normal Saline 100 ML 440 MG IVPB (13:42)
== END 2023-03-21 23:59 | disposition home or self-care (01) ==
LOC: INF 05:47
PROVIDERS: PCP Pediatrics; Visit Provider Obstetrics & Gynecology Gynecology
DX: O99.013 Anemia complicating pregnancy, third trimester (principal)
CPT/HCPCS: 36415; 96365; 85018; J1756

== ENCOUNTER 2023-03-06 10:50 | Outpatient (CLI) | payer MEDICAID, SELFPAY ==
[2023-03-06 11:04] VITALS: BP 109/64; PULSE 94; TEMP 36.9
[2023-03-06 11:07] VITALS: BP 109/64; PULSE 94
[2023-03-06 12:53] LABS: Fetal Fibronectin Negative (Negative)
--- NOTE | 2023-03-06 17:42 | W.OBNST ---
Date of service: 03/06/23 Time of Service: 12:00 NST Evaluation Reason for NST Reasons for Nonstress Test: FALSE LABOR Gestational Age Gestational Age in Weeks and Days: 32 Weeks and 0Days Test and Monitor Explained Test/Monitor Explained: Test Explained, Monitor Explained and Patient Verbalized Understanding Vital Signs Blood Pressure: 109/64 Pulse: 94 Temperature: 98.4 F NST Information Time on Monitor: 10:55 Date off Monitor: 03/06/23 Time off Monitor: 13:20 NST Interventions: PO Hydration NST Evaluation Patient States Movement: Present FHR Baseline: 135 Variability: Moderate 6-25 bpm Accelerations: 15x15 Decelerations: None NST Results: Reactive Note Ultrasound Done: N/A. NST Note Note: Pt c/o mild cramping/ctxs. She had some yesterday am then they went away but came back again while at work this am. She was dx'd with a UTI last week and tx'd with abx - just finishing today. SSE: cervix visually close. FFN collected and vag path collected. Moderate white creamy discharge noted. Cx: soft but long and internal os closed. FFN neg Vag path: +yeast A/P: 32wks with yeast infection. No current signs of labor. Will plan monistat treatment and she should call back if anything worsens. I would expect improvement in the next day or 2. NST Reviewed and Verified by: Fernanda Pineda
[2023-03-06 17:43] VITALS: BP 109/64; PULSE 94; TEMP 36.9
== END 2023-03-06 15:00 | disposition home or self-care (01) ==
LOC: BCD 10:53 → OBS 11:03
PROVIDERS: PCP Pediatrics; Visit Provider Obstetrics & Gynecology
DX: O47.03 False labor before 37 completed weeks of gestation, third trimester (principal); Z3A.32 32 weeks gestation of pregnancy
CPT/HCPCS: 59025; 82731; 87480; 87510; 87660; G0378

== ENCOUNTER 2023-03-27 17:32 | Observation (INO) | payer MEDICAID, SELFPAY ==
[2023-03-27 12:11] VITALS: BP 110/67; PULSE 103; RESP 20; TEMP 34
[2023-03-27] MEDS: Lactated Ringers 1,000 ML 1000 ML IV (13:04)
[2023-03-27] MEDS: Lactated Ringers 1,000 ML 125 ML IV (14:43)
[2023-03-27] MEDS: Ondansetron 4 MG/2 ML VIAL IVP (14:49)
[2023-03-27 15:42] VITALS: BP 117/69; PULSE 83
--- NOTE | 2023-03-27 16:57 | PGE_ITS ---
Date of service: 03/27/23 Time of Service: 16:58 Pelvic Exam Dilation: 0 Comments: SSE done first and vag path swab collected due to a small amount of white discharge. Cervix visually closed. On digital exam, cervix was slightly soft and midplane, maybe 50% effaced but unable to get a fingertip to the internal os. No significant change in cervical exam from 12:35pm until 4:45pm. 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 She had a prior CS and is planning RCS with BTL. She was offered IV pain medication but declines. We discussed the various plans. If her contractions worsen in intensity we will plan repeat cervical exam and would proceed with section if there is significant change (2-3cm). If they continue as is, then she has the option for pain medication to allow her to get some rest prn. If they improve, then she would be able to go home. Will plan re-evaluation in the am unless anything changes before then. Objective Temp Pulse Resp BP 93.2 F L 83 20 117/69 03/27/23 12:11 03/27/23 15:42 03/27/23 12:11 03/27/23 15:42 Vital Signs Reviewed: Yes Subjective Interval history since last seen: Pt started not feeling well last night and this am she woke up with vomiting and feeling nauseous. She has been keeping down liquids but nothing else. She just doesn't feel well in general. She feels good movement. She started feeling some cramping this am and intermittent contractions since arrival. They have increased in intensity over the course of the afternoon. She denies loss of fluid or vaginal bleeding or unusual discharge. She also denies diarrhea and actually reports some constipation. Since arrival she has not vomited. Zofran helped a little with the nausea. She received 1L bolus of LR. Results Abnormal Lab Findings: 03/27/23 12:35 Vaginal Vaginitis Screen - Final
[2023-03-27 19:00] VITALS: BP 114/72; PULSE 92; TEMP 36.7
[2023-03-27 19:15] VITALS: BP 114/72; PULSE 92; TEMP 36.7
[2023-03-27] MEDS: Normal Saline Flush 10 ML SYR (20:05)
[2023-03-27] MEDS: MORPHine 2 MG/ML SYR 3 MG IVP (20:05)
--- NOTE | 2023-03-28 | DI.US_ITS ---
Exam(s) US RENAL EXAM: US RENAL CLINICAL HISTORY: left flank pain, TECHNIQUE: Ultrasound of both kidneys performed using standard protocol. COMPARISON: US US ABDOMEN from 02/16/2023 FINDINGS: RIGHT KIDNEY: Measures 12 cm in length. Mild hydronephrosis. Normal cortical thickness and corticomedullary differ entiation .No solid masses There is a 5 millimeter hyperechoic focus in the mid-lower pole of the right kidney which is probably a calculus. LEFT KIDNEY: Measures 13 cm in length. There is significant hydronephrosis in left kidney, more so than evident i n the right kidney. There are no obvious calculi seen within the left kidney. Normal cortical thick ness and corticomedullary differentiaion. No solids masses. URINARY BLADDER: Prevoid volume is 227 cc Postvoid volume is 0 cc Ureterovesical jets: Both not identified. IMPRESSION: 1. There is bilateral hydronephrosis, more prominent on the left side at this time. 2. There is a 5 millimeter calculus seen within the right kidney. 3. Both ureterovesical jets were not identified in the urinary bladder although this may be related to the fact that this patient is apparently 35 weeks . DATA REPOSITORY:
[2023-03-28 08:06] VITALS: BP 105/65; PULSE 77
[2023-03-28 08:27] VITALS: BP 105/65; PULSE 77; TEMP 36.7
--- NOTE | 2023-03-28 09:58 | W.PM.OBNL1 ---
Date of service: 03/28/23 Time of Service: 09:58 Pelvic Exam Comments: Cervical exam unchanged with internal os still not dilated. Fetus A Heart Rate Baseline: 135 Variability: Moderate (6-25 BPM) Categories: Category I Accelerations: 15 X 15 Decelerations: None Assessment and Plan Assessment and plan (1) contractions: Status: Acute Assessment and plan: Contractions have improved and cervix remained unchanged. Betamethasone given around 11am today so she will return for 2nd dose tomorrow am. Nausea improved and she is tolerating PO. Will call tomorrow with urine culture results and tx prn. Has routine appt in 2 days - can call to cancel if she is feeling much better or keep that appt for f/u. Incidental finding of right nonobstructing kidney stone. Objective Temp Pulse Resp BP 98.1 F 77 20 105/65 03/27/23 19:15 03/28/23 08:06 03/27/23 12:11 03/28/23 08:06 Laboratory Results Urine Culture Cancelled 03/28/23 09:35 Vital Signs Reviewed: Yes Subjective Interval history since last seen: Pt says her nausea has improved. She tolerated some oral intake this am. She c/o some continued ctxs, at times more uncomfortable than others but over the morning they have decreased. She also initially c/o left hip and lower back pain earlier this am but now c/o left flank pain. She denies dysuria. Results Abnormal Lab Findings: 03/27/23 12:35 Vaginal Vaginitis Screen - Final Additional Findings Results: Renal sono completed showing b/l hydronephrosis, L>R with a small nonobstructing right kidney stone. CBC wnl. Vag path swab negative. urine dip: trace blood, culture pending.
[2023-03-28] MEDS: Betamet Acet/Betamet Na Ph Inj. 30 MG/5 ML 12 MG IM (10:48)
[2023-03-28 11:03] LABS: Abs Immature Grans 0.06 10^3/uL (0.0-0.06); Absolute Basophil Count 0.05 10^3/uL (0.0-0.2); Absolute Eosinophil Count 0.08 10^3/uL (0.0-0.7); Absolute Lymphocyte Count 1.45 10^3/uL (1.2-3.4); Absolute Monocyte Count 0.51 10^3/uL (0.1-0.8); Absolute Neutrophil Count 9.28 10^3/uL (1.2-6.7); Basophils % 0.4; Eosinophils % 0.7; HCT 30.2 % (36.0-46.0); HGB 9.9 g/dL (11.2-15.7); Immature Grans % 0.5; Lymphocytes % 12.7; MCH 29.8 pg (27.0-33.0); MCHC 32.8 % (32.0-36.0); MCV 91 fL (80-95); MPV 8.7 fL (8.0-11.0); Monocytes % 4.5; Neutrophils % 81.2; Platelet Count 283 10^3/uL (130-400); RBC 3.32 10^6/uL (3.93-5.22); RDW 13.2 % (11.7-14.6); RDW-SD 43.5 fL; WBC 11.43 10^3/uL (4.4-10.8)
[2023-03-28 11:45] LABS: *AMPHETAMINES SCREEN URINE Negative (Negative); *BARBITURATES SCREEN URINE Negative (Negative); *BENZODIAZEPINES SCREEN URINE Negative (Negative); Cannabinoids THC Negative (Negative); Cocaine Screen,Urine Negative (Negative); METHADONE URINE SCREEN Negative (Negative); OPIATES URINE SCREEN Negative (Negative); Tricyclic Antidepressants Negative (Negative)
--- NOTE | 2023-03-28 12:46 | DSE_ITS ---
Date of service: 03/28/23 Time of Service: 12:46 DS: Diagnosis Discharge Diagnosis (1) contractions: Status: Acute Asessment and Plan: F/u and plan per note. Discharge Plan Disposition Patient Disposition: Home Condition: Good Discharge Details Reason For Visit: Contractions Admit Date/Time: 03/27/23 17:32 Admit Provider: Fernanda Pineda Attending Provider: Fernanda Pineda Primary Care Provider: Luzmaria Barney Hospital Course Hospital Course: Observed x24hrs with contractions but no cervical change. Contractions improved in the last few hours prior to discharge. Nausea resolved. Renal sono showed b/l hydronephrosis c/w and a nonobstructing R stone. No e/o infection. Urine culture pending. Received steroids for lung maturity and will return for 2nd dose tomorrow. Home Meds and New Rx's Prescriptions: No Action prenat.vits,reynold,pxv-cwnj-qrkgm Tablet 1 tab PO DAILY ferrous gluconate [Ferate] 240 mg (27 mg iron) tablet 240 mg PO DAILY Qty: 90 4RF omeprazole 40 mg capsule,delayed release(DR/EC) 40 mg PO DAILY Qty: 30 5RF iron sucrose 200 mg iron/10 mL solution 200 mg IV QWEEK Qty: 10 0RF Rx Instructions: administer over 2-5 mins Monistat 3 200 mg- 2 % (9 gram) kit See Rx Instructions vaginal .COMPLEX Qty: 1 0RF Rx Instructions: put 1 supp in vagina at bedtime x 3nites;use cream on area outside vagina 2X/day for up to 7days vaginal lidocaine 5 % adhesive patch,medicated 1 patch topical DAILY Qty: 15 0RF Rx Instructions: leave on most painful area for up to 12 hrs Discharge Instructions Stand Alone Forms: Center Observation Activity:: Activity as Tolerated Equipment/Supplies:: No Equipment Needed Diet:: As Tolerated Discharge Orders Discharge Orders: Discharge Order (Routine); Ordered 03/28/23 Ordered By: Fernanda Pineda Discharge Data Discharge Date/Time-TO BE ENTERED AT DEPARTURE: 03/28/23 12:32 OB:DS Summary Contraception Discussed Contraception Discussed: No, Status at Discharge Functional status at discharge: independent ambulation Overall status at discharge: patient is progressing back to baseline Mental Status: mental status grossly normal Speech and Movement: speech and movement normal Mood: congruent mood Affect: normal affect Exam Physical Exam Vital signs: Temp Pulse Resp BP 98.1 F 77 20 105/65 03/27/23 19:15 03/28/23 08:06 03/27/23 12:11 03/28/23 08:06 Vital Signs Reviewed: Yes PFSH All Active Problems (Updated 03/28/23 @ 12:43 by Fernanda Pineda MD) Kidney stone on right side (Acute) nonobstructing contractions (Acute) Marijuana use (Acute) Previous delivery affecting , antepartum (Acute) Anxiety (Chronic) Currently (Acute) Anemia (Chronic) Taken iron for many years Depression (Chronic) counseling since age 3, Medications in the past Migraine (Chronic) with visual aura Medical History (Updated 03/28/23 @ 12:43 by Fernanda Pineda MD) History of recurrent UTIs Adjustment disorder with mixed emotional features Attention deficit hyperactivity disorder (ADHD), combined type Chronic serous otitis media Mild persistent asthma Premature of unknown weight Pt was born at 30wks Sleep disorder Concussion Patent ductus arteriosus Surgical History S/P section H/O dilation and curettage 02/06/2019. Missed AB at 11 weeks. 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 Date GA/Weeks # Preg Succ Route Wgt Sex Labor Lgth Anesth esia Location Prov Complic 02/06/19 11 12/14/19 40 No Yes 7 lb 5 oz Male labored X12 hrs regsarah Young CNM, Dr. Thompson did surgery 09/19/20 Delivery Date: 02/06/19 Last Updated by: Fernanda Pineda MD MAB D&C Delivery Date: 12/14/19 Last Updated by: Lynne Bradley nonreassuring FHT @ 7 cm Delivery Date: 09/19/20 Last Updated by: Fernanda Pineda MD ETOP DS: Data Vitals/I&O Vitals and I&O: Vital Signs Temperature 98.1 F 03/27/23 19:15 Temperature 98.1 F 03/28/23 08:27 Temperature Source Oral 03/27/23 19:15 Pulse 77 03/28/23 08:06 Pulse 77 03/28/23 08:27 Pulse Rhythm Regular 03/27/23 19:46 Respiratory Rate 20 03/27/23 12:11 Respiratory Depth Normal 03/27/23 19:46 Blood Pressure 105/65 03/28/23 08:06 Blood Pressure 105/65 03/28/23 08:27 Oxygen Delivery Method Room Air 03/27/23 17:21 Oxygen Flow Rate 0 03/27/23 17:21 Comment Pt had just drank some water prior to temp. 03/27/23 12:11 Intake & Output 03/27/23 03/28/23 03/28/23 23:59 11:59 23:59 Intake Total 1316.667 / 1316.667 Balance 1316.667 / 1316.667 Weight 148 lb 2 oz Intake: IV 1316.667 / 1316.667 Other: Urine Color Yellow Data Completed and Pending Labs on day of discharge: Labs from last 24 hours 03/28/23 03/28/23 03/28/23 11:07 10:58 09:35 WBC 11.43 H RBC 3.32 L Hgb 9.9 L Hct 30.2 L MCV 91 MCH 29.8 MCHC 32.8 RDW 13.2 Plt Count 283 MPV 8.7 Immature Gran % 0.5 Neutrophils % 81.2 Lymphocytes % 12.7 Monocytes % 4.5 Eosinophils % 0.7 Basophils % 0.4 Nucleated RBC % 0.0 Absolute Neutrophils 9.28 H Absolute Lymphocytes 1.45 Absolute Monocytes 0.51 Absolute Eosinophils 0.08 Absolute Basophils 0.05 Urine Culture Cancelled Urine Opiates Screen Negative Urine Methadone Screen Negative Ur Barbiturates Screen Negative Ur Tricyclics Screen Negative Ur Amphetamines Screen Negative U Benzodiazepines Scrn Negative Urine Cocaine Screen Negative Ur THC Screen Negative 03/28/23 09:35 Urine - Clean Catch Urine Culture - Pending Preliminary micro results at discharge 03/28/23 09:35 Urine Culture - Pending Urine - Clean Catch 03/27/23 12:05 Urine Culture - Preliminary Urine - Voided Gram Negative Brad
== END 2023-03-28 12:32 | disposition home or self-care (01) ==
LOC: OBS 17:53 → BCD 03-28 09:43 → OBS 03-28 09:43
PROVIDERS: Admitting Provider Obstetrics & Gynecology; PCP Pediatrics; Visit Provider Obstetrics & Gynecology
DX: O60.03 Preterm labor without delivery, third trimester (principal); O34.211 Maternal care for low transverse scar from previous cesarean delivery; O99.891 Other specified diseases and conditions complicating pregnancy; Z3A.35 35 weeks gestation of pregnancy; N85.8 Other specified noninflammatory disorders of uterus; N20.0 Calculus of kidney; N13.30 Unspecified hydronephrosis; R11.0 Nausea
CPT/HCPCS: 36415; 76770; 80307; 87077; 96360; 96361; 85025; 87086; 87186; 87480; 87510; 87660; G0378; J0702; J2270; J2405

== ENCOUNTER 2023-03-29 07:31 | Outpatient (CLI) | payer MEDICAID, SELFPAY ==
[2023-03-29] MEDS: Betamet Acet/Betamet Na Ph Inj. 30 MG/5 ML 12 MG IM (10:55)
== END 2023-03-29 11:00 ==
LOC: BCD 07:32
PROVIDERS: PCP Pediatrics; Visit Provider Obstetrics & Gynecology
DX: Z3A.33 33 weeks gestation of pregnancy (principal); O60.03 Preterm labor without delivery, third trimester
CPT/HCPCS: 96372; J0702

== ENCOUNTER 2023-03-30 15:27 | Outpatient (REF) | payer MEDICAID, SELFPAY | END 2023-03-30 15:28 | disposition home or self-care (01) | LOC: LBN 15:27 | PROVIDERS: PCP Pediatrics; Visit Provider Obstetrics & Gynecology Gynecology | DX: Z34.93 Encounter for supervision of normal pregnancy, unspecified, third trimester (principal); Z3A.35 35 weeks gestation of pregnancy; Z36.85 Encounter for antenatal screening for Streptococcus B | CPT/HCPCS: 87081 ==

== ENCOUNTER 2023-04-04 23:10 | Inpatient (IN) | payer MEDICAID, SELFPAY ==
[2023-04-04 22:53] VITALS: BP 125/70; PULSE 93; RESP 18; TEMP 36.6
[2023-04-04 23:03] VITALS: BP 125/70; PULSE 93; RESP 18; TEMP 36.6
--- NOTE | 2023-04-04 23:12 | W.PM.OBHPL1 ---
Date of service: 04/04/23 Time of Service: 23:12 Assessment and Plan Assessment and plan (1) Previous delivery affecting , antepartum: Status: Acute Assessment and plan: Patient currently 36W1D EGA by first trimester OB ultrasound who presents with onset of painful regular contractions approximately 5 hours ago. No rupture membranes no vaginal bleeding. Her cervix is closed but lower uterine segment is well-developed station 0. Patient is betamethasone complete from previous observation approximately a week ago she desires repeat delivery with bilateral tubal sterilization. She was counseled during this regarding risks and alternatives for the sterilization. She is adamant that she wishes to proceed with sterilization at the time of her repeat delivery. Patient's questions were answered. She signed an informed consent for repeat delivery and tubal sterilization. She was counseled regarding the risk of infection damage to surrounding structures including bowel bladder blood vessels ureters the need for transfusion and possible hysterectomy. (2) contractions: Status: Acute OB-HPI Labor/Delivery History of Present Illness Reason for Visit: RULE OUT LABOR Chief Complaint: Uterine Contractions (Onset approximately 5 PM this evening. No vaginal bleeding or loss of fluid). CRUZ Calculator Estimated Delivery Date Method Current WG Current Estimate 05/01/23 Ultrasound #1 36w 1d Other Estimates 02/26/23 LMP (Uncertain) 45w 2d History of Present Expected Delivery Route/Plan prev C/S, desires repeat - MD KOHLER/gaurav Lopez (2nd baby together) Specific Issues/Plan 1. Previous c/s for distress, not interested in TOLAC - Plan RCS with BTL. 01/06/2023 tubal sterilization consent signed 2. cfDNA without gender- WNL; declines CF screen. Now knows it's a girl! 3. Poor dentition, excited to be covered during and will get care 4. 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 Pt born premature @ 30 wks, adopted by her mother's sister 6. Hx depression/anxiety, declines meds or referral, has coping skills, no therapist 7. Hx migraine GREENE, no prevention meds, takes tylenol only 8. Infrequent MJ use (x2/month), advised to cease use 9. Anemia (had in previous ) - Start iron infusions 02/17 Narrative: 03/27/23. Pt was eval on BC x24hrs after onset of n/v and contractions. Discharged to home on 03/28/23 @35w1d EGA. Rx for EColi UTI with Nitrofurantoin. GBS RV Cx neg. Pt received Betamethasone 12mg x24hrs apart. Informed Consent Informed Consent: Section Delivery and Sterilization Review of Systems Narrative: Patient reports these contractions are far more intense and closer together than to contractions that she presented with on 03/27/2023. Constitutional Constitutional: Reports system reviewed and no additional complaints, except as documented Respiratory Respiratory: Reports system reviewed and no additional complaints, except as documented Gastrointestinal Gastrointestinal: Reports system reviewed and no additional complaints, except as documented, Denies nausea and Denies vomiting Genitourinary Genitourinary: Denies dysuria and Reports pelvic pain Musculoskeletal Musculoskeletal: Reports system reviewed and no additional complaints, except as documented Integumentary/Breasts Skin/Breast: Reports system reviewed and no additional complaints, except as documented Neurologic Neurologic: Reports system reviewed and no additional complaints, except as documented Psychiatric Psychiatric: Reports system reviewed and no additional complaints, except as documented PFSH All Active Problems (Updated 04/04/23 @ 23:29 by Angela Payne MD) contractions (Acute) Kidney stone on right side (Acute) nonobstructing Marijuana use (Acute) Currently (Acute) Previous delivery affecting , antepartum (Acute) Anxiety (Chronic) Depression (Chronic) counseling since age 3, Medications in the past Anemia (Chronic) Taken iron for many years Migraine (Chronic) with visual aura Medical History (Updated 04/04/23 @ 23:29 by Angela Payne MD) History of recurrent UTIs Adjustment disorder with mixed emotional features Attention deficit hyperactivity disorder (ADHD), combined type Chronic serous otitis media Mild persistent asthma Premature infant of unknown weight Pt was born at 30wks Sleep disorder Concussion Patent ductus arteriosus Surgical History (Updated 03/29/23 @ 00:05 by NATHANAEL HUFF) S/P section H/O dilation and curettage 02/06/2019. Missed AB at 11 weeks. Family History Mother Substance abuse Maternal Grandmother Breast cancer Diabetes Celiac disease Maternal Aunt Celiac disease Maternal Cousin Celiac disease Social History (Updated 04/04/23 @ 23:27 by Angela Payne MD) Smoking/Tobacco Use Status: Former Tobacco Use Quit Date: 07/20/18 Tobacco: How many years used: 1 Quit status: quit date established Smoking risk assessment performed?: Yes Alcohol Intake: never Drug use: Never Substance use type: does not use Details: around second hand marijuana smoke Household members: significant other and other Details: [facility] Number of Children: 1 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 Date GA/Weeks # Preg Succ Route Wgt Sex Labor Lgth Anesthesia Location Prov Complic 02/06/19 11 12/14/19 40 No Yes 7 lb 5 oz Male labored X12 hrs [facility], Dr. Thompson did surgery 09/19/20 Delivery Date: 02/06/19 Last Updated by: Fernanda Pineda MD MAB D&C Delivery Date: 12/14/19 Last Updated by: Lynne Bradley nonreassuring FHT @ 7 cm Delivery Date: 09/19/20 Last Updated by: Fernanda Pineda MD ETOP Meds Allergies and Home Medications Allergies Allergy/AdvReac Type Severity Reaction Status Date / Time bee venom protein (honey bee) Allergy Severe Anaphylaxis Verified 03/30/23 14:31 honey Allergy Severe Verified 03/30/23 14:31 kiwi Allergy Unknown nausea, Verified 03/30/23 14:31 tingly Latex, Natural Rubber Allergy Unknown rash and Verified 03/30/23 14:31 blistering francisco Allergy Unknown nausea,ting Verified 03/30/23 14:31 ly pineapple Allergy Unknown nausea,ting Verified 03/30/23 14:31 ly lisdexamfetamine AdvReac Intermediate difficulty Verified 03/30/23 14:31 [From Vyvanse] falling asleep Adhesives Allergy Severe Rash Uncoded 03/30/23 14:31 Home Medications Medication Instructions Recorded Confirmed Type prenat.vits,reynold,yrm-egor-clwlz 1 tab PO DAILY 08/31/22 03/30/23 History ferrous gluconate 240 mg (27 mg 240 mg PO DAILY #90 tabs 11/11/22 03/30/23 Rx iron) tablet (Ferate) lidocaine 5 % topical patch 1 patch topical DAILY #15 ea 11/16/22 03/30/23 Rx omeprazole 40 mg capsule,delayed 40 mg PO DAILY #30 caps 02/14/23 03/30/23 Rx release iron sucrose 200 mg iron/10 mL 200 mg (10 mL) IV QWEEK 10 doses 02/15/23 03/30/23 Rx intravenous solution #10 mL miconazole nitrate 200 mg-2 % (9 See Rx Instructions vaginal 03/06/23 03/30/23 Rx gram) vaginal kit (Monistat 3) .COMPLEX #1 ea nitrofurantoin macrocrystal 100 mg 100 mg PO BID #10 caps 03/29/23 03/30/23 Rx capsule Exam Physical Exam Vital signs: Temp Pulse Resp BP 97.9 F 93 H 18 125/70 04/04/23 23:03 04/04/23 23:03 04/04/23 23:03 04/04/23 23:03 Vital Signs Reviewed: Yes Constitutional Constitutional: mild distress (Breathing through contractions) and average body habitus Detailed Labor and Delivery Exam Dilation: 0 Effacement (%): 75 station: 0 (Lower uterine segment well-developed) Cervix position: mid Consistency: medium Espino Score: Cervical Points Exam 0 1 2 3 Dilation Closed 1-2cm 3-4 cm 5-6cm Effacement 0-30% 40-50% 60-70% 80% Consistency Firm Medium Soft Station -3 -2 -1,0 +1,+2 Position Posterior Mid Anterior ESPINO Score(Cervical Ripeness Score): 7 Amniotic Membrane Status: Intact Monitor Mode: External Contraction Frequency(min): Every 2 Contraction Duration(sec): 60 Contraction Intensity: Mild/Moderate Fetus A Heart Rate Baseline: 145 Monitor Accelerations: 15 X 15 Monitor Decelerations: None Variability: Moderate (6-25 BPM) Presentation: Cephalic Categories: Category I Est. Weight: 7 lb 7.931 oz HEENT Exam HEENT Exam: Normal Neck Exam Neck Exam: Normal Chest/Brest/Axilla Exam Chest Exam: Normal Breast Exam Breast Exam: Not Done Respiratory Exam Respiratory Exam: Normal Cardiovascular Exam Cardiovascular Exam: Normal Abdominal Exam Abdominal Exam: Normal (Gravid no focal tenderness.) Rectal Exam Rectal Exam: Not Done Exam Exam: Normal Extremities Exam Extremities Exam: Normal (2+ DTR 1 beat of clonus) Back/Spine/Pelvis Exam Back Exam: Normal Pelvis Adequate: Yes Skin Exam Skin Exam: Normal Neurological Exam Neurological Exam: Normal Psychiatric Exam Psychiatric Exam: Normal Results Results Group Beta Strep: Negative Blood Type: O+ Rubella Status: Immune Varicella Immunity: Immune Abnormal Lab Findings: 03/27/2023 E. coli UTI pansensitive treated with Macrobid Risk Assessment Risk for Shoulder Dystocia Historical/Initial OB: NEGATIVE FOR: Pelvic Abnormality, Pre- BMI>30, Previous Shoulder Dystocia or Previous Macrosomia Risk for Pre-Eclampsia Yes, if one or more: NEGATIVE FOR: Hx Pre-E/Gest HTN, Chronic HTN, Multiple Gestation, Pre-gestational DM, Renal Disease, Systemic Lupus or APA Syndrome Yes, if 2 or more: POSITIVE FOR: Mother/Sister w/ Pre-E; NEGATIVE FOR: Nulliparity, Age>= 35 yrs, >10yr btwn pregnancies, BMI>30, ethinicty or Previous IUGR Risk for Post- Hemorrhage Initial: NEGATIVE FOR: Multiple Gestation, Previous PPH, Known Clotting Deficiency, Grand Multiparity or Anticoagulation Risks Reviewed Risks Reviewed Upon Admission: Yes
[2023-04-04] MEDS: Lactated Ringers 1,000 ML 200 ML IV (23:15)
[2023-04-04] MEDS: Normal Saline 250 ML (23:25)
[2023-04-04] MEDS: AZITHROMYCIN 500 MG in Normal Saline 250 ML 250 MG IVPB (23:25)
[2023-04-04] MEDS: Azithromycin 500 MG VIAL (23:29)
[2023-04-04] MEDS: Sodium Citrate 30 ML CUP PO (23:30)
[2023-04-04 23:31] LABS: HGB 10.2 g/dL (11.2-15.7); MCH 29.1 pg (27.0-33.0); MCHC 32.9 % (32.0-36.0); MCV 89 fL (80-95); MPV 9.1 fL (8.0-11.0); Platelet Count 347 10^3/uL (130-400); RDW 12.8 % (11.7-14.6); RDW-SD 41.3 fL; WBC 12.64 10^3/uL (4.4-10.8)
[2023-04-05] VITALS (20 sets, daily range): BP systolic 102–118; BP diastolic 56–82; PULSE 87–103; RESP 16–18; TEMP 35.9–36.8; O2SAT 95–100; BMI 28.1
[2023-04-05] MEDS: ceFAZolin 2 GM/50 ML BAG IVPB (00:15)
[2023-04-05] MEDS: Bupivacaine 0.25% Pres-Free 30 ML VIAL (00:25)
[2023-04-05] MEDS: Ketorolac 30 MG/ML VIAL IVP ×4 (00:40→20:01)
--- NOTE | 2023-04-05 00:45 | FALL_PTH ---
PATIENT: Carla Alas LOC: OBS U#:[id number] AGE/SX: 22/F ROOM: OBS.304 RE04/04/[address]: Angela Payne : 2000 BED: A DIS: 04/07/2023 SPEC #: [id number] RECD: 04/05/23 12:52 STATUS: YAS REQ #: [id number] SEPIDEH: 04/05/23 00:[address]: Angela Payne DEPT: Surgical Specimen RECD BY: Barbara Mccabe ENTERED: 04/05/23 12:53 SP TYPE: Fall OTHR DR: Luzmaria Barney Tissues: 1 - FALLOPIAN TUBE (STERILIZATION) 2 - FALLOPIAN TUBE (STERILIZATION) Procedures: GROSS AND MICRO LEVEL 2 Comments: [id number]
--- NOTE | 2023-04-05 01:06 | ANES.PREOP_ITS ---
General Info Date of Service Date Performed: 04/05/23 Height: 5 ft 2 in Weight: 69.853 kg Body Mass Index (BMI): 28.1 Surgical Procedure: Operation Date: 04/04/23 23:30 Proposed Procedure Side Surgeon p Section Not Applicable Angela Payne MD Actual Procedure Side Surgeon p Section Not Applicable Angela Payne MD Pre-Op Diagnosis Post-Op Diagnosis REPEAT CSECTION REPEAT CSECTION Meds Allergies and Home Medications Allergies Allergy/AdvReac Type Severity Reaction Status Date / Time bee venom protein (honey bee) Allergy Severe Anaphylaxis Verified 03/30/23 14:31 honey Allergy Severe Verified 03/30/23 14:31 kiwi Allergy Unknown nausea, Verified 03/30/23 14:31 tingly Latex, Natural Rubber Allergy Unknown rash and Verified 03/30/23 14:31 blistering francisco Allergy Unknown nausea,ting Verified 03/30/23 14:31 ly pineapple Allergy Unknown nausea,ting Verified 03/30/23 14:31 ly lisdexamfetamine AdvReac Intermediate difficulty Verified 03/30/23 14:31 [From Stephanee] falling asleep Adhesives Allergy Severe Rash Uncoded 03/30/23 14:31 Home Medication Medication Instructions Recorded prenat.vits,reynold,wjm-izjp-pbbpc 1 tab PO DAILY 08/31/22 ferrous gluconate 240 mg (27 mg 240 mg PO DAILY #90 tabs 11/11/22 iron) tablet (Ferate) lidocaine 5 % topical patch 1 patch topical DAILY #15 ea 11/16/22 omeprazole 40 mg capsule,delayed 40 mg PO DAILY #30 caps 02/14/23 release iron sucrose 200 mg iron/10 mL 200 mg (10 mL) IV QWEEK 10 doses 02/15/23 intravenous solution #10 mL miconazole nitrate 200 mg-2 % (9 See Rx Instructions vaginal 03/06/23 gram) vaginal kit (Monistat 3) .COMPLEX #1 ea nitrofurantoin macrocrystal 100 mg 100 mg PO BID #10 caps 03/29/23 capsule Current Visit Medications: Current Medications Generic Name Dose Route Start Last Admin Trade Name Freq PRN Reason Stop Dose Admin Citric Acid/Sodium Citrate 30 ml 04/04/23 23:45 04/04/23 23:30 Sodium Citrate 30 Ml Cup PO 30 ml PREOP KASANDRA Administration Cefazolin Sodium/Dextrose 2 gm in 50 mls @ 100 mls/hr 04/04/23 23:15 04/05/23 00:25 Ancef Duplex IVPB Infused PREOP KASANDRA Infusion Azithromycin 500 mg/ Sodium 250 mls @ 250 mls/hr 04/04/23 23:15 04/05/23 00:25 Chloride IVPB Infused PREOP KASANDRA Infusion Ringer's Solution 1,000 mls @ 200 mls/hr 04/04/23 23:15 04/04/23 23:15 IV 200 mls/hr INFUSION KASANDRA Administration IV Miscellaneous Supplies 1 each 04/04/23 23:15 04/04/23 23:15 Iv Access IV 1 each DIRECTED KASANDRA Administration Sodium Chloride 0 ml 04/04/23 23:10 Normal Saline Flush 10 Ml Syr IVP PRN PRN PFSH Active Problems Active Problems: Problem Status Onset Code contractions O47.00 Kidney stone on right side N20.0 Marijuana use F12.90 Currently Z34.90 Previous delivery affecting , antepartum O34.219 Anxiety F41.9 Depression F32.9 Anemia D64.9 Migraine G43.909 Medical History Medical History (Updated 04/04/23 @ 23:29 by Angela Payne MD) History of recurrent UTIs Adjustment disorder with mixed emotional features Attention deficit hyperactivity disorder (ADHD), combined type Chronic serous otitis media Mild persistent asthma Premature of unknown weight Pt was born at 30wks Sleep disorder Concussion Patent ductus arteriosus Surgical History Surgical History (Updated 03/29/23 @ 00:05 by NATHANAEL HUFF) S/P section H/O dilation and curettage 02/06/2019. Missed AB at 11 weeks. Tobacco Smoking/Tobacco Use Status: Former Tobacco Use Passive smoking exposure: Yes Alcohol Alcohol Intake: never Substance Use Substance use: Never Substance use type: does not use Details: around second hand marijuana smoke Prental History History 2 5 Para 1 Hx # Term Pregnancies 1 Multiple births 0 Hx # Pregnancies 0 Ectopic pregnancies 0 AB induced 1 Hx Number of Living Children 1 AB spontaneous 3 Past Pregnancies Del. Date GA/Weeks # Preg Succ Route Wgt Sex Labor Lgth Anesth esia Location Prov Complic 02/06/19 11 12/14/19 40 No Yes 3316.894 g Male labored X12 hrs kate Dr. Donna Ayala CNM did surgery 09/19/20 Delivery Date: 02/06/19 Last Updated by: Fernanda Pineda MD MAB D&C Delivery Date: 12/14/19 Last Updated by: Lynne Bradley nonreassuring FHT @ 7 cm Delivery Date: 09/19/20 Last Updated by: Fernanda Pineda MD ETOP Vital Signs and Lab Results Vital Signs Most Recent Vital Signs in EMR: Most Recent Vital Signs Temp Pulse Resp BP 36.6 C 93 H 18 125/70 04/04/23 23:03 04/04/23 23:03 04/04/23 23:03 04/04/23 23:03 Lab Results 04/04/23 23:24 Blood Type / Crossmatch: 2 Patient ABO/Rh O Positive 04/04/23 Antibody Screen NEGATIVE 04/04/23 Complete Blood Count: 2 White Blood Count 12.64 10^3/uL (4.4-10.8) H 04/04/23 23:24 Red Blood Count 3.50 10^6/uL (3.93-5.22) L 04/04/23 23:24 Hemoglobin 10.2 g/dL (11.2-15.7) L 04/04/23 23:24 Hematocrit 31.0 % (36.0-46.0) L 04/04/23 23:24 Platelet Count 347 10^3/uL (130-400) 04/04/23 23:24 Complete Metabolic Panel: 2 No Data to Display Liver Function Panel: 2 No Data to Display Coagulation Panel: 2 No Data to Display Cardiac Panel: 2 No Data to Display Arterial Blood Gas: 2 No Data to Display Venous Blood Gas: 2 No Data to Display Pancreas Panel: 2 No Data to Display Thyroid Panel: 2 No Data to Display Infectious Disease: 2 No Data to Display Blood Cultures: 2 No Data to Display Toxicology Panel: 2 Urine Amphetamines Screen Negative (Negative) 03/28/23 11:07 Urine Benzodiazepines Screen Negative (Negative) 03/28/23 11:0 7 Urine Barbiturates Screen Negative (Negative) 03/28/23 11:07 Urine Cocaine Screen Negative (Negative) 03/28/23 11:07 Urine Methadone Screen Negative (Negative) 03/28/23 11:07 Urine Opiates Screen Negative (Negative) 03/28/23 11:07 Ur Tricyclic Antidepressants Screen Negative (Negative) 11:07 Ur Tetrahydrocannabinol (THC) Scrn Negative (Negative) 3 11:07 Panel: 2 No Data to Display Anesthesia Assessment and Plan Anesthesia History Personal History: No History of Anesthesia Complications Family History: No Family History of Anesthesia Complications Exercise Tolerance Exercise Tolerance: Metabolic Equivalents>4 Pertinent Negatives Pertinent Negatives: No Symptoms of GERD Cardiac & Pulmonary Exam Cardiac Exam: Normal S1/S2 Heart Sounds Pulmonary Exam: Clear Bilateral Breath Sounds Implantable Cardiac Device Does patient have a Pacemaker or an ICD?: No Airway Exam Known Difficult Airway: No Mallampati Class: 2 Mouth Opening: Normal (> 3cm) Thyromental Distance: Greater than 3 cm Neck Range of Motion: Full ROM Neck Circumference: Normal Teeth Condition: Normal Dentition ASA Classification ASA Score: ASA 2 Emergency Case?: No NPO Status NPO Status: NPO Clears >2 hours, Solids >8 hours Status Status: Confirmed (Full term, prior ) Anesthesia Plan Resuscitation Status: Full Code Anesthesia Technique: Spinal Anesthesia Airway Planned: Natural Airway Monitors Used: Standard Monitors
[2023-04-05] MEDS: Lactated Ringers 1,000 ML 200 ML IV (01:16)
--- NOTE | 2023-04-05 01:52 | W.ANESPOSTOP ---
Postoperative Evaluation Date, Time and Location Date Performed: 04/05/23 Time Performed: 01:52 Patient Location: Obstetrics Vital Signs Most Recent Imported Vital Signs: Most Recent Vital Signs Temp Pulse Resp BP 36.6 C 93 H 18 125/70 04/04/23 23:03 04/04/23 23:03 04/04/23 23:03 04/04/23 23:03 Pain Score Most Recent Pain Score: Most Recent Pain Score Pain Level 3 04/04/23 23:03 Assessment Mental Status: Awake (Alert & Oriented to Patient Baseline) Airway and Respiratory Function: Patent airway with normal (patient baseline) respiratory exam Cardiovascular Function: Hemodynamically Stable Hydration Status: Adequately Hydrated Nausea & Vomiting: No Nausea or Vomiting Pain: Pt. Denies Any Pain (SAB at L1) Peripheral Nerve Block: Patient did not receive a nerve block
[2023-04-05 06:56] LABS: Abs Immature Grans 0.17 10^3/uL (0.0-0.06); Basophils % 0.3; HCT 28.9 % (36.0-46.0); HGB 9.7 g/dL (11.2-15.7); Immature Grans % 0.8; Lymphocytes % 5.6; MCH 29.9 pg (27.0-33.0); MCHC 33.6 % (32.0-36.0); MCV 89 fL (80-95); MPV 9.6 fL (8.0-11.0); Monocytes % 2.5; Neutrophils % 90.8; Platelet Count 332 10^3/uL (130-400); RBC 3.24 10^6/uL (3.93-5.22); RDW 12.9 % (11.7-14.6); RDW-SD 42.3 fL; WBC 20.54 10^3/uL (4.4-10.8)
[2023-04-05 06:57] LABS: Absolute Basophil Count 0.06 10^3/uL (0.0-0.2); Absolute Lymphocyte Count 1.15 10^3/uL (1.2-3.4); Absolute Monocyte Count 0.51 10^3/uL (0.1-0.8); Absolute Neutrophil Count 18.65 10^3/uL (1.2-6.7)
--- NOTE | 2023-04-05 07:58 | PDOC.OPNB_ITS ---
Date of service: 04/05/23 Time of Service: 07:58 Operative Note Operative Note Delivery Method: Unscheduled STAT: No and Repeat Previous LT Incision: Yes DATE OF PROCEDURE: 04/05/23 PRE-OP DIAGNOSES: IUP at 36w2d EGA. unscheduled rLTCS. undesired fertility POST-OP DIAGNOSES: same Uterine contractions. PROCEDURE: repeat LTCS with bilateral salpingectomy SURGEON: Angela Payne Internist Medical Doctor Md: Isabela Esquivel Anesthesia: spinal Estimated blood loss (mL): 900 Pathology: other (bialteral fallopian tubes ) Complications: None Patient was transported to: floor Patient's condition: stable Indications: 22yo female who has been followed my MD service at [facility] with intention to repeat LTCS and tubal sterilization at 39w EGA. Pt had episode of contractions at 35w and received Betamethasone x2 and began Macrobid for E.Coli UTI.. She was discharged after 24hrs of observation and had been feeling well until she had onset of painful regular contractions 5 hours prior to presentation. Cerivx 75% effaced. Not dilated, vertex at 0 station. Decision made to proceed with unscheduled rLTCS. Findings: Viable female in vtx presentation, clear amniotic fluid. Wt 3050gm, Apgars 8/8. Her parents intend to name her John. Nl uterus, normal ovaries and normal fallopian tubes. Procedure Description: Patient was taken to the operating room she is placed in the sitting position and spinal anesthesia was administered without difficulty. She was then placed in the dorsal supine position with a leftward tilt. SCDs and a Landrum catheter to gravity drainage were in place. A vaginal prep with Betadine was performed and the patient was prepped and draped in the usual sterile fashion.Surgical timeout was performed. Preop antibiotics were administered. After a adequate level of anesthesia was achieved a Pfannenstiel skin incision was made approximately 2 cm superior to the pubic symphysis using a scalpel and the underlying subcutaneous tissue dissected using Bovie electrocautery to the level of the rectus fascia. The rectus fascia was then nicked in the midline and the fascial incision extended laterally using Bovie electrocautery. 2 Juany clamps were applied to the superior rectus fascia and the rectus fascia was dissected off of the underlying rectus muscles using Bovie electrocautery and blunt technique. A similar technique was carried out on the inferior rectus fascia. Rectus muscles were then in the midline and the peritoneum entered bluntly. The peritoneal incision was extended laterally using blunt technique and the bladder blade used to retract the bladder away from the operative field. The vesicle-uterine peritoneum over lower uterine segment was incised with curved Philip scissors and the bladder flap created bluntly. Scalpel was used to incise the lower uterine segment in a transverse fashion. The uterine incision was extended bluntly and the amniotic sac was ruptured with clear amniotic fluid noted. A single gloved hand was placed into the uterine cavity and the head was successfully delivered through the uterine incision followed by the trunk and extremities with the assistance of fundal pressure. The cord was doubly clamped and cut and the infant handed off to the waiting pediatric team. After cord blood was collected the placenta was extracted with a combination of fundal massage and gentle cord traction. The uterus was exteriorized cleared of all clots and debris and the uterine incision reapproximated with a running lock suture of 0 Vicryl followed by a second imbricating suture of 0 Vicryl. Additional figure of eight sutures were used to acheive hemostatis. After the uterine incision was noted be hemostatic the patient's R fallopian tube was grasped followed to its fimbriated end and using a LigaSure device the mesosalpinx in proximity to the right fallopian tube was clamped cauterized and transected to the level of the uterine cornua. The fallopian tube was then detached from the uterine cornua and passed off of the operative field. Similar technique was carried out on the contralateral fallopian tube. Both the right and left mesosalpinx and the bilateral uterine cornua were inspected and noted be hemostatic. Uterine incision was hemostatic. The uterus was returned to the abdomen and the paracolic gutters cleared of all clots and debris. Uterine incision and the along with the bladder flap and the abdominal wall were all inspected and noted to be hemostatic. The rectus fascia was reapproximated with a running suture of 0 Vicryl. space within the subcutaneous tissue closed with a running suture of 2-0 Vicryl. The skin incision was reapproximated with a subcuticular closure of 4-0 Vicryl. Steri strips and a Mepilex dressing were applied. The uterus was massaged for any remaining clots and debris. The patient was transported to recovery area in stable condition. All sponge, lap, and needle counts correct x2. Gestational Age in Weeks/Days: 36 Weeks and 2 Days Infant Gender: Female
[2023-04-05] MEDS: Normal Saline Flush 10 ML SYR IVP ×3 (08:58→20:01)
--- NOTE | 2023-04-05 09:36 | W.PM.OBPNV1 ---
Date of service: 04/05/23 Time of Service: 09:36 Assessment and Plan Assessment and plan (1) Status post repeat low transverse section: Status: Acute Assessment and plan: Satisfactory postop recovery. Patient will be assisted out of bed this morning. Plan to discontinue Landrum catheter at that time. (2) History of female sterilization: Status: Acute Exam Physical Exam Vital signs: Temp Pulse Resp BP Pulse Ox 98.2 F 103 H 16 110/72 95 04/05/23 07:20 04/05/23 07:20 04/05/23 07:20 04/05/23 07:20 04/05/23 07:20 Vital Signs Reviewed: Yes Notable Details: tachycardia Narrative: POD 0 unscheduled repeat c/s and bilateral salpingectomy. Constitutional Comments: Pain well controlled. Not OOB yet. Landrum in place. SCDs on. Neck Exam Neck Exam: Normal Respiratory Exam Respiratory Exam: Normal Cardiovascular Exam Cardiovascular Exam: Normal Abdominal Exam Comments: Dressing clean dry and intact. No ecchymosis. Fundal Exam Fundus: Below Umbilicus Rectal Exam Rectal Exam: Not Done Exam Patient deferred: external exam Extremities Exam Extremity Exam: Normal and Pulses Intact Skin Exam Skin Exam: Normal Neurological Exam Neurological Exam: Normal Psychiatric Exam Psychiatric Exam: Normal Results Hemoglobin/Hematocrit: Hgb 9.7 g/dL (11.2-15.7) L 04/05/23 06:10 Hct 28.9 % (36.0-46.0) L 04/05/23 06:10 Abnormal Lab Findings: Abnormal Labs 04/04/23 04/05/23 23:24 06:10 WBC 12.64 H 20.54 H RBC 3.50 L 3.24 L Hgb 10.2 L 9.7 L Hct 31.0 L 28.9 L Absolute Neutrophils 18.65 H Absolute Lymphocytes 1.15 L
[2023-04-06 00:15] VITALS: RESP 17
[2023-04-06] MEDS: Acetaminophen 325 MG TAB 650 MG PO ×2 (04:57→17:36)
[2023-04-06] MEDS: Ibuprofen 600 MG TAB PO ×3 (04:57→17:36)
[2023-04-06 08:30] VITALS: BP 116/63; PULSE 94; RESP 18; TEMP 36.8; O2SAT 97
[2023-04-06] MEDS: Docusate Sodium 100 MG CAP PO ×2 (08:49→17:36)
[2023-04-06 11:30] VITALS: BP 110/60; PULSE 86; RESP 17; TEMP 36.7; O2SAT 99
[2023-04-06] MEDS: oxyCODONE 5 mg/Acetaminophen 325 mg TAB PO ×2 (11:37→15:25)
--- NOTE | 2023-04-06 15:11 | OBPPV_ITS ---
Date of service: 04/06/23 Time of Service: 15:11 Assessment and Plan Assessment and plan (1) History of female sterilization: Status: Acute (2) Status post repeat low transverse section: Status: Acute Assessment and plan: Postop day one of her unscheduled repeat low-transverse delivery with bilateral tubal sterilization. Patient's pain is well controlled. She has received assistance with breast-feeding. The plan is to discharge her to home on 04/07/2023. Subjective Subjective Interval history: Postop day 2 unscheduled repeat delivery with bilateral tubal sterilization. Patient has been breast-feeding and pumping breastmilk. Patient comments: Incisional pain (Controlled with nonsteroidal anti- inflammatories and acetaminophen) and Tolerating diet Patient's Mood: Satisfactory. She admits to being tired baby status: Doing well, Nursing well, Rooming in and Strong Bonding Observed [place] feeding status: Exclusively breast feeding Exam Physical Exam Vital signs: Temp Pulse Resp BP Pulse Ox 98.1 F 86 17 110/60 99 04/06/23 11:30 04/06/23 11:30 04/06/23 11:30 04/06/23 11:30 04/06/23 11:30 Vital Signs Reviewed: Yes Constitutional Constitutional: no acute distress Neck Exam Neck Exam: Normal Respiratory Exam Respiratory Exam: Normal Cardiovascular Exam Cardiovascular Exam: Normal Abdominal Exam Abdomen: Tender (At incision. Mepilex dressing intact, no staining) Fundal Exam Fundus: Below Umbilicus and Firm Rectal Exam Rectal Exam: Not Done Extremities Exam Extremity Exam: Normal (1+ bilateral pretibial nonpitting edema) Back/Spine/Pelvis Exam Back Exam: Not Done Skin Exam Skin Exam: Normal Neurological Exam Neurological Exam: Normal Psychiatric Exam Psychiatric Exam: Normal Results Hemoglobin/Hematocrit: Hgb 9.7 g/dL (11.2-15.7) L 04/05/23 06:10 Hct 28.9 % (36.0-46.0) L 04/05/23 06:10 Abnormal Lab Findings: Abnormal Labs 04/04/23 04/05/23 23:24 06:10 WBC 12.64 H 20.54 H RBC 3.50 L 3.24 L Hgb 10.2 L 9.7 L Hct 31.0 L 28.9 L Absolute Neutrophils 18.65 H Absolute Lymphocytes 1.15 L
[2023-04-06 15:25] VITALS: BP 111/64; PULSE 85; RESP 17; TEMP 36.9; O2SAT 99
[2023-04-06 20:00] VITALS: BP 115/65; PULSE 86; RESP 17; TEMP 36.9; O2SAT 99
[2023-04-07] MEDS: Acetaminophen 325 MG TAB 650 MG PO ×2 (00:16→09:52)
[2023-04-07] MEDS: Ibuprofen 600 MG TAB PO ×2 (00:17→09:52)
[2023-04-07 07:30] VITALS: BP 102/68; PULSE 85; RESP 16; TEMP 36.6; O2SAT 97
[2023-04-07] MEDS: Docusate Sodium 100 MG CAP PO (09:53)
--- NOTE | 2023-04-07 10:44 | W.PM.OBDISCH ---
Date of service: 04/07/23 Time of Service: 10:44 DS: Diagnosis Discharge Diagnosis (1) History of female sterilization: Status: Acute (2) Status post repeat low transverse section: Status: Acute Discharge Plan Disposition Patient Disposition: Home Condition: Stable Discharge Details Reason For Visit: Delivery Admit Date/Time: 04/04/23 23:10 Admit Provider: Angela Payne Attending Provider: Angela Payne Primary Care Provider: Luzmaria Barney Hospital Course Hospital Course: Patient was admitted with painful regular contractions at 36 and 2 weeks estimated stational age. She had been seen a week prior with contractions and diagnosed with a UTI treated with antibiotics for the UTI and given a 2 doses of betamethasone. Decision was made to proceed with a unscheduled elective delivery with bilateral tubal sterilization. Patient had been counseled regarding sterilization during her course and had requested permanent sterilization after being counseled regarding the alternatives including LARC. Home Meds and New Rx's Prescriptions: No Action prenat.vits,reynold,wmd-kxql-rpmis Tablet 1 tab PO DAILY ferrous gluconate [Ferate] 240 mg (27 mg iron) tablet 240 mg PO DAILY Qty: 90 4RF omeprazole 40 mg capsule,delayed release(DR/EC) 40 mg PO DAILY Qty: 30 5RF iron sucrose 200 mg iron/10 mL solution 200 mg IV QWEEK Qty: 10 0RF Rx Instructions: administer over 2-5 mins Monistat 3 200 mg- 2 % (9 gram) kit See Rx Instructions vaginal .COMPLEX Qty: 1 0RF Rx Instructions: put 1 supp in vagina at bedtime x 3nites;use cream on area outside vagina 2X/day for up to 7days vaginal nitrofurantoin macrocrystal 100 mg capsule 100 mg PO BID Qty: 10 0RF Rx Instructions: must administer with a meal/food lidocaine 5 % adhesive patch,medicated 1 patch topical DAILY Qty: 15 0RF Rx Instructions: leave on most painful area for up to 12 hrs Discharge Instructions Additional Instructions: Take 1 Percocet every 6 hours as needed for pain. You may take the Percocet and the ibuprofen together. When your pain lessens you can take an acetaminophen 650 mg every 6 hours along with the ibuprofen 600 mg every 6 hours. Return to the office on Monday to remove the wound dressing Stand Alone Forms: BC Instructions, Discharge Instruc Activity:: Activity as Tolerated Equipment/Supplies:: No Equipment Needed Diet:: As Tolerated Discharge Orders Discharge Orders: Discharge Order (Routine); Ordered 04/07/23 Ordered By: Angela Payne OB:DS Summary Summary Vaginal Delivery Method: Spontaneaous Delivery Method: Repeat Episiotomy Description: None Laceration Description: None Laceration Extension: N/A complications OB DS: none Contraception Discussed Contraception Discussed: No, Gender-Baby A: Female weight: 6 lb 11.586 oz Disposition of Baby A: Home (John) Status at Discharge Functional status at discharge: independent ambulation Overall status at discharge: patient is progressing back to baseline Mental Status: mental status grossly normal Speech and Movement: speech and movement normal Mood: congruent mood Affect: normal affect Exam Physical Exam Vital signs: Temp Pulse Resp BP Pulse Ox 97.9 F 85 16 102/68 97 04/07/23 07:30 04/07/23 07:30 04/07/23 07:30 04/07/23 07:30 04/07/23 07:30 Vital Signs Reviewed: Yes Notable Details: stable. Narrative: Postop day 2 after spontaneous labor and unscheduled elective repeat delivery with tubal sterilization. Pain effectively controlled with NSAIDs but she does realize that she will need occasional Percocet for the immediate period while at home. Breast-feeding has improved her milk is coming. She feels ready for discharge Constitutional Constitutional: no acute distress Neck Exam Neck Exam: Normal Respiratory Exam Respiratory Exam: Normal Cardiovascular Exam Cardiovascular Exam: Normal Abdominal Exam Abdomen: Tender (Mildly tender along incision line) Fundal Exam Fundus: Below Umbilicus Rectal Exam Rectal Exam: Not Done Extremities Exam Extremity Exam: Normal Back/Spine/Pelvis Exam Back Exam: Normal Skin Exam Skin Exam: Normal Neurological Exam Neurological Exam: Normal Psychiatric Exam Psychiatric Exam: Normal PFSH All Active Problems (Updated 04/05/23 @ 09:47 by Angela Payne MD) History of female sterilization (Acute) 04/05/23 at time of repeat C/S Status post repeat low transverse section (Acute) 04.05.23. With bilateral tubal sterilization. F. John contractions (Acute) Kidney stone on right side (Acute) nonobstructing Marijuana use (Acute) Currently (Acute) Previous delivery affecting , antepartum (Acute) Anxiety (Chronic) Depression (Chronic) counseling since age 3, Medications in the past Anemia (Chronic) Taken iron for many years Migraine (Chronic) with visual aura Medical History (Updated 04/05/23 @ 09:47 by Angela Payne MD) History of recurrent UTIs Adjustment disorder with mixed emotional features Attention deficit hyperactivity disorder (ADHD), combined type Chronic serous otitis media Mild persistent asthma Premature infant of unknown weight Pt was born at 30wks Sleep disorder Concussion Patent ductus arteriosus Surgical History (Updated 04/05/23 @ 09:46 by Angela Payne MD) S/P section H/O dilation and curettage 02/06/2019. Missed AB at 11 weeks. Family History Mother Substance abuse Maternal Grandmother Breast cancer Diabetes Celiac disease Maternal Aunt Celiac disease Maternal Cousin Celiac disease Social History (Updated 04/04/23 @ 23:27 by Angela Payne MD) Smoking/Tobacco Use Status: Former Tobacco Use Quit Date: 07/20/18 Tobacco: How many years used: 1 Quit status: quit date established Smoking risk assessment performed?: Yes Alcohol Intake: never Drug use: Never Substance use type: does not use Details: around second hand marijuana smoke Household members: significant other and other Details: [facility] Housing: apartment Number of Children: 1 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 Date GA/Weeks # Preg Succ Route Wgt Sex Labor Lgth Anesthesia Location Prov Complic 02/06/19 11 12/14/19 40 No Yes 7 lb 5 oz Male labored X12 hrs [facility]. Donna spence CNM did surgery 09/19/20 04/05/23 36 No Yes 6 lb 11.586 oz Female aoc Delivery Date: 02/06/19 Last Updated by: Fernanda Pineda MD MAB D&C Delivery Date: 12/14/19 Last Updated by: Lynne Bradley nonreassuring FHT @ 7 cm Delivery Date: 09/19/20 Last Updated by: Fernanda Pineda MD ETOP Delivery Date: 04/05/23 Last Updated by: Angela Payne MD unscheduled elective rLTCS with tubal sterilization. 'John'. DS: Data Vitals/I&O Vitals and I&O: Vital Signs Temperature 97.9 F 04/07/23 07:30 Temperature Source Tympanic 04/04/23 23:03 Temperature Source Oral 04/07/23 07:30 Pulse 85 04/07/23 07:30 Pulse Rhythm Regular 04/07/23 07:30 Respiratory Rate 16 04/07/23 07:30 Respiratory Depth Normal 04/06/23 20:00 Blood Pressure 102/68 04/07/23 07:30 Blood Pressure Mean 79 04/07/23 07:30 Pulse Oximetry 97 04/07/23 07:30 Respiratory End-tidal CO2 18 04/05/23 03:15 Oxygen Delivery Method Room Air 04/04/23 23:03 Oxygen Flow Rate 0 04/04/23 23:03 Pain Level 4 04/07/23 09:52 Intake & Output 04/06/23 04/06/23 04/07/23 11:59 23:59 11:59 Output Total 500 / 500 Balance -500 / -500 Output: Urine 500 / 500 Other: Urine Color Yellow Yellow
[2023-04-07 11:10] VITALS: BP 121/67; PULSE 84; RESP 16; TEMP 36.8; O2SAT 98
--- NOTE | 2023-04-09 12:13 | PDOC.ANES ---
Date of service: 04/09/23 Time of Service: 12:00 Anesthesia Note Report Anesthesia Note: Chief Complaint: Headache, not feeling well Carla Alas is a 22yo Female who gave by early on April 05. Pt. received a SAB with 24gu spinal needle which set up well and was uncomplicated other then hypotension which required treatment during the delivery. Since her delivery Carla has complained of a low grade headache and mild photophobia. In talking to her today, she admits that she has not been drinking as much water/fluid as she probably should and has cut back on her caffeine intake. She has no fever and her vitals are WNL. I encouraged her to increase her fluid intake and return to her pre-delivery level of caffeine intake. She will be seeing Dr. Pineda this next week for scheduled follow up. I encouraged her to call if her symptoms become worse or she develops a fever. Armando Reinoso CRNA
== END 2023-04-07 11:30 | disposition home or self-care (01) | DRG 783 ==
PROVIDERS: Admitting Provider Obstetrics & Gynecology Gynecology; PCP Pediatrics; Visit Provider Obstetrics & Gynecology Gynecology
PROC: (CPT 59514; principal; 2023-04-04 23:30)
DX: O34.211 Maternal care for low transverse scar from previous cesarean delivery (principal); O60.14X0 Preterm labor third trimester with preterm delivery third trimester, not applicable or unspecified; O99.324 Drug use complicating childbirth; O99.354 Diseases of the nervous system complicating childbirth; Z37.0 Single live birth; Z3A.36 36 weeks gestation of pregnancy; F12.90 Cannabis use, unspecified, uncomplicated; O99.344 Other mental disorders complicating childbirth; F41.8 Other specified anxiety disorders; O99.02 Anemia complicating childbirth; D64.9 Anemia, unspecified; Z30.2 Encounter for sterilization; G43.909 Migraine, unspecified, not intractable, without status migrainosus
CPT/HCPCS: 59514; 58700; 36415; 85027; 86850; 86900; 86901; 85025; 88302; G0378; J0131; J0456; J0690; J1100; J1200; J1885; J2405; J3010; J3490

== ENCOUNTER 2023-04-09 10:52 | Outpatient (CLI) | payer MEDICAID, SELFPAY ==
[2023-04-09 11:09] LABS: Abs Immature Grans 0.16 10^3/uL (0.0-0.06); Absolute Basophil Count 0.07 10^3/uL (0.0-0.2); Absolute Eosinophil Count 0.39 10^3/uL (0.0-0.7); Absolute Monocyte Count 0.62 10^3/uL (0.1-0.8); Absolute Neutrophil Count 6.23 10^3/uL (1.2-6.7); Basophils % 0.7; Eosinophils % 4.2; HCT 30.9 % (36.0-46.0); HGB 9.8 g/dL (11.2-15.7); Immature Grans % 1.7; Lymphocytes % 20.3; MCH 28.8 pg (27.0-33.0); MCHC 31.7 % (32.0-36.0); MCV 91 fL (80-95); MPV 8.4 fL (8.0-11.0); Monocytes % 6.6; Neutrophils % 66.5; Platelet Count 350 10^3/uL (130-400); RDW 13.6 % (11.7-14.6); RDW-SD 43.9 fL; WBC 9.37 10^3/uL (4.4-10.8)
== END 2023-04-09 11:55 | disposition home or self-care (01) ==
LOC: BCD 10:53
PROVIDERS: PCP Pediatrics; Visit Provider Obstetrics & Gynecology
DX: Z98.51 Tubal ligation status (principal); Z48.89 Encounter for other specified surgical aftercare
CPT/HCPCS: 99211; 85025

== ENCOUNTER 2024-10-17 15:13 | Outpatient (REF) | payer MEDICAID, SELFPAY ==
--- NOTE | 2024-10-17 15:15 | PAPFT_PTH ---
PATIENT: Carla Alas LOC: [facility] U#:[id number] AGE/SX: 24/F ROOM: RE10/17/[address]: Fernanda Pineda MD : 2000 BED: DIS: 10/17/2024 SPEC #: [id number] RECD: 10/17/24 18:11 STATUS: YAS REQ #: [id number] SEPIDEH: 10/17/24 15:[address]: Fernanda Pineda DEPT: [facility] Cytology RECD BY: Barbara Mccabe ENTERED: 10/17/24 18:11 SP TYPE: PAPFT OTHR DR: Luzmaria Barney Tissues: 1 - CX/ENDOCX FOR PAP SMEARS Procedures: PAP THIN PREP/[facility] Screening Comments: [id number]
== END 2024-10-17 15:14 | disposition home or self-care (01) ==
LOC: LBN 15:13
PROVIDERS: PCP Obstetrics & Gynecology; Visit Provider Obstetrics & Gynecology
DX: Z12.4 Encounter for screening for malignant neoplasm of cervix (principal); N76.0 Acute vaginitis
CPT/HCPCS: 88142

== ENCOUNTER 2024-10-17 15:35 | Outpatient (CLI) | payer MEDICAID, SELFPAY ==
[2024-10-17 15:50] LABS: HCT 38.8 % (36.0-46.0); HGB 13.1 g/dL (11.2-15.7); MCH 30.4 pg (27.0-33.0); MCHC 33.8 % (32.0-36.0); MCV 90 fL (80-95); Platelet Count 332 10^3/uL (130-400); RBC 4.31 10^6/uL (3.93-5.22); RDW 12.1 % (11.7-14.6); RDW-SD 39.9 fL; WBC 7.88 10^3/uL (4.4-10.8)
[2024-10-17 17:11] LABS: Ferritin 12 ng/mL (8-252)
[2024-10-19 03:41] LABS: HIV-1/2 Ag & Ab Screen Negative (Negative)
[2024-10-19 03:58] LABS: HBs Antibody, Qual Negative (See Note); HBs Antibody, Quant <3.1 mIU/mL (See Note); Hepatitis B Core Antibody Negative (Negative); Hepatitis B surface Ag Negative (Negative); Hepatitis C Ab w Rflx HCV PCR Negative (Negative)
[2024-10-21 11:21] LABS: Syphilis Serology (RPR) Negative (Negative)
== END 2024-10-17 15:36 | disposition home or self-care (01) ==
LOC: LBO 15:36
PROVIDERS: PCP Pediatrics; Visit Provider Obstetrics & Gynecology
DX: N93.9 Abnormal uterine and vaginal bleeding, unspecified (principal); Z11.3 Encounter for screening for infections with a predominantly sexual mode of transmission
CPT/HCPCS: 36415; 85027; 86704; 86706; 86803; 87340; 87389; 82728; 86592

== ENCOUNTER 2024-11-11 02:43 | Outpatient (CLI) | payer MEDICAID, SELFPAY ==
--- NOTE | 2024-11-11 07:40 | DI.US_ITS ---
Exam(s) US PELVIS TRANSVAGINAL EXAM: US PELVIS TRANSVAGINAL CLINICAL HISTORY: abnormal uterine bleeding,pelvic mass,n93.9,r19.03 TECHNIQUE: Transabdominal and transvaginal imaging was performed using standard protocol. COMPARISON: No exams were available for comparison FINDINGS: UTERUS: Anteverted. 9.1 x 4.4 x 6.3 cm Endometrium: 8 mm Myometrium: Unremarkable. Cervix: Unremarkable. OVARIES: Right: Cyst or mass: None. Left: Cyst or mass: None. DOPPLER: Color: Symmetric and uniform flow to both ovaries. No hyperemia. CUL-DE-SAC: Free fluid: None. IMPRESSION: 1. Normal-appearing uterus with endometrial stripe within normal limits. 2. Unremarkable bilateral ovaries. DATA REPOSITORY:
== END 2024-11-11 03:03 ==
LOC: DI 02:43
PROVIDERS: PCP Obstetrics & Gynecology; Visit Provider Obstetrics & Gynecology
DX: N93.9 Abnormal uterine and vaginal bleeding, unspecified (principal); R19.03 Right lower quadrant abdominal swelling, mass and lump
CPT/HCPCS: 76830; 76856